=== PATIENT | male | born 1945 | race Caucasian/White ===

== ENCOUNTER 2017-12-27 10:11 | Emergency (ER) | payer OTHER, MEDICARE ==
[~2017-12-27] VITALS: Ht 170.2 cm; Wt 110.2 kg
[~2017-12-27 10:11] MED LIST: PERCOCET 5-3251 EACH PO; ZOFRAN4 M2 SL
--- NOTE | 2017-12-27 11:17 | ED GI/GU/ABDOMINAL COMPLAINT ---
See Addendum History of Present Illness General Chief Complaint: Nausea, Vomiting, Diarrhea Stated Complaint: NVD X 4 DAYS Source: patient, family Exam Limitations: no limitations Vital Signs & Intake/Output Vital Signs & Intake/Output Vital Signs Date Time Temp Pulse Resp B/P B/P Pulse O2 O2 Flow FiO2 Mean Ox Delivery Rate 12/27 1555 97.8 93 18 127/76 99 Room Air 12/27 1329 92 16 104/60 96 Room Air ED Intake and Output 12/28 0000 12/27 1200 Intake Total 1000 Output Total Balance 1000 Intake, IV 1000 Patient 243 lb Weight Weight Reported by Patient Measurement Method Allergies Coded Allergies: NO KNOWN ALLERGIES (01/04/16) Reconcile Medications Alprazolam 0.5 MG TABLET 1 TAB PO BIDP PRN ANXIETY (Reported) Aspirin (Aspirin*) 81 MG TAB.CHEW 1 TAB PO DAILY HEART HEALTH (Reported) Calcium Polycarbophil (Fiber Tabs) 625 MG TABLET 1 TAB PO DAILY SUPPLEMENT ( Reported) Cholecalciferol (Vitamin D3) (Vitamin D) 1,000 UNIT TABLET 1 TAB PO DAILY VITAMIN SUPPORT (Reported) Exenatide Microspheres (Bydureon Bcise) 2 MG/0.85 ML AUTO.INJCT 2 MG SC QW UNKNOWN (Reported) Glimepiride 2 MG TABLET 1 TAB PO DAILY DIABETES (Reported) Losartan Potassium 50 MG TABLET 1 TAB PO DAILY HEART (Reported) Metformin HCl (Metformin HCl ER) 500 MG [id number] 1 TAB PO DAILY DIABETES ( Reported) Metoprolol Tartrate 100 MG TABLET 1 TAB PO BID HEART (Reported) Multivit-Min/FA/Lycopen/Lutein (Centrum Silver Tablet) 0.4 MG-300 MCG-250 MCG TABLET 1 TAB PO DAILY VITAMIN SUPPORT (Reported) [place]-3S/Dha/Epa/Fish Oil (Fish Oil 1,200 MG Softgel) 360-1,200MG CAPSULE 1 CAP PO DAILY SUPPLEMENT (Reported) Omeprazole 20 MG CAPSULE.DR 1 CAP PO DAILY GI (Reported) Phentermine/Topiramate (Qsymia 11.25 MG-69 MG Capsule) 11.25 MG-69 MG CPMP.24HR 1 CAP PO DAILY UNKNOWN (Reported) Pioglitazone HCl 30 MG TABLET 1 TAB PO DAILY DIABETES (Reported) Simvastatin (Simvastatin*) 40 MG TABLET 1 TAB PO QPM CHOLESTEROL (Reported) Triage Note: PT STATES ABDOMINAL PAIN WITH N/V/D SINCE MONDAY. DENIES ANY SICK CONTACTS. STATES VOMITING HAS SETTLED DOWN BUT NOW JUST DIARRHEA. DENIES BLOOD IN STOOL Triage Nurses Notes Reviewed? yes Onset: Gradual Duration: day(s): (4) Timing: remote history Quality/Severity: cramping Severity Numbers: 7 Location: generalized abdomen Radiation: no radiation Activities at Onset: none Prior Abdominal Problems: similar symptoms Past Sexual History: Unobtainable at this time No Modifying Factors: none HPI: Patient is a 72-year-old male with history of hypertension, hyperlipidemia and diabetes presenting to the emergency department with family with chief complaint of nausea vomiting and diarrhea 4 days. Patient also reports that he had abdominal pain associated with this which had resolved. Patient reports 3-4 episodes of diarrhea daily. Reports his last episode of emesis was yesterday evening. No blood in the vomit or in the diarrhea. Denies any urinary frequency urgency or dysuria. No fevers or chills. No sick contacts or recent travel. Denies recent antibiotic use. Patient does report remote history of diverticulitis for which she had a colon resection. He saw one of his doctors today for a checkup and they advised him to come to the emergency department for evaluation secondary to the symptoms he has been having for the past 4 days. Patient denying any current abdominal pain. No chest pain palpitations or shortness of breath. He does report generalized malaise and diffuse weakness. Also reports decreased by mouth intake. Unable to keep anything down except for some water and amna dacia for the past 3-4 days. (Monserrat John) Past History Travel History Traveled to [place] past 21 day No Medical History Any Pertinent Medical History? see below for history Neurological: NONE EENT: NONE Cardiovascular: hypertension, hyperlipidemia Respiratory: asthma Gastrointestinal: diverticulitis Hepatic: NONE Renal: NONE Musculoskeletal: NONE Psychiatric: NONE Endocrine: NONE Blood Disorders: NONE Cancer(s): NONE Surgical History Surgical History: COLON RESECTION Psychosocial History Who do you live with Spouse Services at Home None What is your primary language Maori Tobacco Use: Never used ETOH Use: occasional use Illicit Drug Use: denies illicit drug use Family History Hx Contributory? No (Monserrat John) Review of Systems Review of Systems Constitutional: Reports: see HPI, malaise, weakness. Comments Review of systems: See HPI, All other systems negative. Constitutional, no chills fever or weight loss HEENT: No visual changes no sore throat no congestion Cardiovascular: No chest pain ,palpitation , orthopnea or ankle swelling Skin, no jaundice no rashes Respiratory: No dyspnea cough sputum or hemoptysis GI: Positive nausea, vomiting, diarrhea : No dysuria No hematuria Muscle skeletal: no back pain, no neck pain, Neurologic: No numbness no confusion, no headaches Psych: No stress anxiety or depression,. Heme/endocrine: No bruising no bleeding no polyuria or polydipsia Immunology: No splenectomy or history of AIDS (Monserrat John) Physical Exam Physical Exam General Appearance: no apparent distress, alert, awake, comfortable, obese Gastrointestinal: normal bowel sounds, soft, non-tender, obese Comments: Well-developed well-nourished person in no acute distress HEENT:. Pupils equally round and reactive to light and accommodation. Nose is atraumatic. Pharynx normal. No swelling or edema. Slightly dry oral mucosa. Dry lips noted. Neck: Normal inspection Back: Nontender Cardiovascular: Regular rate and rhythms no murmurs rubs or gallops, normal JVP Respiratory: Chest nontender. No respiratory distress.breath sounds clear to auscultation bilaterally Abdomen: Soft, obese, nontender, no rebound or guarding nondistended, no appreciable organomegaly. Hypoactive bowel sounds throughout abdomen. No ascites Extremity: No edema Neuro: Alert oriented x3 Skin: No appreciable rash on exposed skin, skin is warm and dry. Psych: Mood and affect is normal, memory and judgment is normal. Core Measures ACS in differential dx? No Sepsis Present: No Sepsis Focused Exam Completed? No (Monserrat John) Progress Differential Diagnosis: gastritis, diverticulitis, gastroenteritis, dehydration, acute kidney injury, electrolyte abnormality, UTI, peptic ulcer disease Plan of Care: Laboratory Tests 12/27/17 1407: Lactic Acid Cancelled Microbiology 12/27 1420 NASOPHARYN: Influenza Virus A & B Rapid Smear - COMP 12/27/2017 11:25:23 AM patient is awake alert and oriented, well-appearing. No abdominal pain on exam. Patient is hypotensive on arrival, afebrile. Patient does show signs on exam of dehydration. Likely related to recent nausea vomiting or diarrhea. Patient will be hydrated. Lab work ordered. Patient sent in for CAT scan of abdomen so patient will go for CT of abdomen as well. IV fluids along with Pepcid initiated no abdominal pain at this time. 12/27/2017 2:21:20 PM patient received 2 L IV fluids. Blood pressure seems to be responding. Patient still afebrile. No signs of diverticulitis or infectious cause of symptoms on CT scan. There is of no questionable ileus. No mechanical blockages. Patient was able to move his fall today. Patient has had no pain in his abdomen. Patient no longer vomiting. Spoke with Gregory Gutiérrez MD, covering surgeon, recommending we treat patient for gastroenteritis with symptomatic treatment. Patient will be educated to return if he develops any abdominal pain worsening symptoms or concerns. Educated on increasing fluid intake. Diagnostic Imaging: Viewed by Me: CT Scan. Discussed w/RAD: CT Scan. Radiology Impression: PATIENT: HARIS MORALES PRESENT AGE: 72 PATIENT ACCOUNT NO: [id number] : 47 LOCATION: [facility] ORDERING PHYSICIAN: Monserrat LAMBERT SERVICE DATE: 12/27/17 EXAM TYPE: CAT - CT ABD & PELVIS W IV CONTRAST EXAMINATION: CT ABDOMEN AND PELVIS WITH CONTRAST CLINICAL INFORMATION: Nausea, vomiting, diarrhea COMPARISON: CT abdomen and pelvis dated 01/04/2016 TECHNIQUE: Multidetector volumetric imaging was performed of the abdomen and pelvis following IV administration of 95 mL of Optiray 320 intravenous contrast. Sagittal and coronal reformatted images were obtained on the technologist's workstation. DLP: 1479 mGy-cm FINDINGS: LUNG BASES: The visualized lung bases are unremarkable. LIVER, GALLBLADDER, AND BILIARY TREE: There is a 2 cm lesion in the anterior aspect of the left hepatic lobe which demonstrates peripheral enhancement. Relative low-density of the liver is again seen suggestive of steatosis. The hepatic contour is smooth. A few calcified granulomata are seen. The gallbladder is surgically absent. There is unchanged high density in the remnant cystic duct unchanged compared to prior. The common bile duct is normal in caliber without evidence of stone. PANCREAS: Unremarkable. SPLEEN: Unremarkable. ADRENAL GLANDS: Unremarkable. KIDNEYS AND URETERS: There is symmetric renal enhancement. Mild diffuse cortical thinning is appreciated. There are small low-density lesions in the right kidney which are too small to characterize. There is a small nonobstructive calculus in the upper pole of the left kidney. There is no hydronephrosis or hydroureter. There is mild bilateral nonspecific perinephric stranding. BLADDER: Unremarkable. GASTROINTESTINAL TRACT: There is fluid in the small and large bowel. There are a few segments of distended small bowel without a discrete transition. There is a surgical anastomosis at the rectosigmoid junction which is widely patent. There are scattered diverticula in the distal colon without associated inflammatory change. Surgical clips are noted at the left hemiabdomen. The appendix is normal. There is no free fluid or pneumoperitoneum. ABDOMINAL WALL: There is a wide necked fat-containing midline epigastric hernia which is unchanged compared to prior. There is old healed midline surgical incision. There is nonspecific subcutaneous stranding in the anterior abdominal wall. LYMPH NODES: There are no pathologically enlarged lymph nodes by size criteria. VASCULAR: There is extensive aortoiliac atherosclerosis. No abdominal aortic aneurysm. The SMA, SMV, and portal vein enhance normally. PELVIC VISCERA: There are nonspecific prostatic calcifications. OSSEOUS STRUCTURES: There are partially imaged changes of median sternotomy. There are mild multilevel degenerative changes of the spine. Mild degenerative changes of the hips. IMPRESSION: Fluid-filled small and large bowel. Mildly distended small bowel without discrete transition. Overall, findings favor an ileus pattern. No evidence of mechanical small bowel obstruction. Rectosigmoid surgical anastomosis is widely patent. Postsurgical changes of cholecystectomy. Again seen are small retained stones within the cystic duct. The common bile duct is without stones and normal in caliber. 2 cm peripherally enhancing lesion in the left hepatic lobe is present on the prior CT from 01/04/2016 but did not demonstrate similar enhancement pattern likely due to differences in contrast bolus timing. It is similar in size. On the coronal view it appears to demonstrate peripheral nodular enhancement pattern characteristic of a hemangioma. Nonobstructive left upper pole renal calculus. DICTATED BY: Alondra De Guzman MD DATE/TIME DICTATED:12/27/171308 TRAILER ASSEMBLER:SHAWN DATE/ TIME TRANSCRIBED:12/27/171308 CONFIDENTIAL, DO NOT COPY WITHOUT APPROPRIATE AUTHORIZATION. <Electronically signed in Other Vendor System> SIGNED BY: Alondra De Guzman MD 12/27/17 1349 Initial ED EKG: none (Adelita LAMBERT,Monserrat) Departure Departure Time of Disposition: 1421 Disposition: HOME OR SELF CARE Condition: Stable Clinical Impression Primary Impression: Gastroenteritis Referrals: Juan ALAS,Walter Warren (PCP/Family) Marla ALAS,Gregory Hatch Additional Instructions: Follow-up with your primary care physician tomorrow, call to make an appointment. Return to the emergency Department immediately. Develop any abdominal pain if you continue to vomit worsening symptoms or concerns. Increase fluids. Attached as a copy of your CAT scan results. PATIENT: HARIS MORALES PRESENT AGE: 72 PATIENT ACCOUNT NO: [id number] : 47 LOCATION: [facility] ORDERING PHYSICIAN: Monserrat LAMBERT SERVICE DATE: 12/27/17 EXAM TYPE: CAT - CT ABD & PELVIS W IV CONTRAST EXAMINATION: CT ABDOMEN AND PELVIS WITH CONTRAST CLINICAL INFORMATION: Nausea, vomiting, diarrhea COMPARISON: CT abdomen and pelvis dated 01/04/2016 TECHNIQUE: Multidetector volumetric imaging was performed of the abdomen and pelvis following IV administration of 95 mL of Optiray 320 intravenous contrast. Sagittal and coronal reformatted images were obtained on the technologist's workstation. DLP: 1479 mGy-cm FINDINGS: LUNG BASES: The visualized lung bases are unremarkable. LIVER, GALLBLADDER, AND BILIARY TREE: There is a 2 cm lesion in the anterior aspect of the left hepatic lobe which demonstrates peripheral enhancement. Relative low-density of the liver is again seen suggestive of steatosis. The hepatic contour is smooth. A few calcified granulomata are seen. The gallbladder is surgically absent. There is unchanged high density in the remnant cystic duct unchanged compared to prior. The common bile duct is normal in caliber without evidence of stone. PANCREAS: Unremarkable. SPLEEN: Unremarkable. ADRENAL GLANDS: Unremarkable. KIDNEYS AND URETERS: There is symmetric renal enhancement. Mild diffuse cortical thinning is appreciated. There are small low-density lesions in the right kidney which are too small to characterize. There is a small nonobstructive calculus in the upper pole of the left kidney. There is no hydronephrosis or hydroureter. There is mild bilateral nonspecific perinephric stranding. BLADDER: Unremarkable. GASTROINTESTINAL TRACT: There is fluid in the small and large bowel. There are a few segments of distended small bowel without a discrete transition. There is a surgical anastomosis at the rectosigmoid junction which is widely patent. There are scattered diverticula in the distal colon without associated inflammatory change. Surgical clips are noted at the left hemiabdomen. The appendix is normal. There is no free fluid or pneumoperitoneum. ABDOMINAL WALL: There is a wide necked fat-containing midline epigastric hernia which is unchanged compared to prior. There is old healed midline surgical incision. There is nonspecific subcutaneous stranding in the anterior abdominal wall. LYMPH NODES: There are no pathologically enlarged lymph nodes by size criteria. VASCULAR: There is extensive aortoiliac atherosclerosis. No abdominal aortic aneurysm. The SMA, SMV, and portal vein enhance normally. PELVIC VISCERA: There are nonspecific prostatic calcifications. OSSEOUS STRUCTURES: There are partially imaged changes of median sternotomy. There are mild multilevel degenerative changes of the spine. Mild degenerative changes of the hips. IMPRESSION: Fluid-filled small and large bowel. Mildly distended small bowel without discrete transition. Overall, findings favor an ileus pattern. No evidence of mechanical small bowel obstruction. Rectosigmoid surgical anastomosis is widely patent. Postsurgical changes of cholecystectomy. Again seen are small retained stones within the cystic duct. The common bile duct is without stones and normal in caliber. 2 cm peripherally enhancing lesion in the left hepatic lobe is present on the prior CT from 01/04/2016 but did not demonstrate similar enhancement pattern likely due to differences in contrast bolus timing. It is similar in size. On the coronal view it appears to demonstrate peripheral nodular enhancement pattern characteristic of a hemangioma. Nonobstructive left upper pole renal calculus. DICTATED BY: Alondra De Guzman MD DATE/TIME DICTATED:12/27/171308 TRAILER ASSEMBLER:SHAWN DATE/TIME TRANSCRIBED:12/27/171308 CONFIDENTIAL, DO NOT COPY WITHOUT APPROPRIATE AUTHORIZATION. <Electronically signed in Other Vendor System> SIGNED BY: Alondra De Guzman MD 12/27/17 3166 Departure Forms: Customer Survey General Discharge Information (Monserrat John) Departure Comments The patient was not seen by me. The patient was evaluated by Dr. De Oliveira. I agree with the PAs evaluation however. (Bk Dyer DO) PA/MANAGER TRANSPORT Co-Sign Statement Statement: ED Attending supervision documentation- [X] I saw and evaluated the patient. I have also reviewed all the pertinent lab results and diagnostic results. I agree with the findings and the plan of care as documented in the PA's/MANAGER TRANSPORT's documentation. Patient presents for evaluation of vomiting and diarrhea. Physical examination reveals a benign abdomen. [] I have reviewed the ED Record and agree with the PA's/MANAGER TRANSPORT's documentation. [] Additions or exceptions (if any) to the PAs/MANAGER TRANSPORT's note and plan are summarized below: [] (Yennifer ALAS,Bk Cabrera) Departure Comments The patient was not seen by me. The patient was evaluated by Dr. De Oliveira. I agree with the PAs evaluation however. (Bk Dyer DO)
[2017-12-27] MEDS ORDERED: METOPROLOL TAR100 M1 PO (11:19)
[2017-12-27] MEDS ORDERED: LOSARTAN POTASS50 M1 PO (11:19)
[2017-12-27] MEDS ORDERED: SIMVASTATIN40 M1 PO (11:20)
[2017-12-27] MEDS ORDERED: PIOGLITAZONE HC30 M1 PO (11:20)
[2017-12-27] MEDS ORDERED: QSYMIA 11.25 M1 EACH PO (11:20)
[2017-12-27] MEDS ORDERED: GLIMEPIRIDE2 MG PO (11:21)
[2017-12-27] MEDS ORDERED: METFORMIN HCL500 M5 PO (11:21)
[2017-12-27] MEDS ORDERED: OMEPRAZOLE20 M2 PO (11:21)
[2017-12-27] MEDS ORDERED: CENTRUM SILVER1 EAC3 PO (11:22)
[2017-12-27] MEDS ORDERED: BYDUREON B2 MG/0.85 SC (11:22)
[2017-12-27] MEDS ORDERED: ASPIRIN81 M4 PO (11:22)
[2017-12-27] MEDS ORDERED: VITAMIN D1000 UNIT PO (11:23)
[2017-12-27] MEDS ORDERED: FIBER TABS625 MG PO (11:23)
[2017-12-27] MEDS ORDERED: FISH OIL 1,2001 EAC2 PO (11:24)
[2017-12-27] MEDS ORDERED: ALPRAZOLAM0.5 M4 PO (11:24)
[2017-12-27 12:00] LABS: ABSOLUTE BASOPHIL COUNT 0 /CUMM (0.0-0.2); ABSOLUTE EOSINOPHIL COUNT 0 /CUMM (0.0-0.7); ABSOLUTE GRANULOCYTE CT 6.3 /CUMM (1.4-6.5); ABSOLUTE LYMPH COUNT 1.9 /CUMM (1.2-3.4); ABSOLUTE MONOCYTE COUNT 1.1 /CUMM (0.10-0.60); BASOPHIL % 0.4 % (0.0-2.0); EOSINOPHIL % 0.3 % (0-5); GRANULOCYTE % 66.9 % (42.2-75.2); MEAN CORPUSCULAR HGB 28.6 PG (27.0-31.0); MEAN CORPUSCULAR HGB CONC 32.8 G/DL (33.0-37.0); MEAN CORPUSCULAR VOLUME 87.2 FL (80.0-94.0); MEAN PLATELET VOLUME 7.7 FL (7.4-10.4); PLATELET COUNT 232 /CUMM (130-400); RBC DISTRIBUTION WIDTH 14.5 % (11.5-14.5); RED BLOOD CELL CT 5.16 /CUMM (4.70-6.10); WHITE BLOOD CELL COUNT 9.4 /CUMM (4.8-10.8)
--- NOTE | 2017-12-27 13:49 | CT SCAN REPORT ---
EXAMINATION: CT ABDOMEN AND PELVIS WITH CONTRAST CLINICAL INFORMATION: Nausea, vomiting, diarrhea COMPARISON: CT abdomen and pelvis dated 01/04/2016 TECHNIQUE: Multidetector volumetric imaging was performed of the abdomen and pelvis following IV administration of 95 mL of Optiray 320 intravenous contrast. Sagittal and coronal reformatted images were obtained on the technologist's workstation. DLP: 1479 mGy-cm FINDINGS: LUNG BASES: The visualized lung bases are unremarkable. LIVER, GALLBLADDER, AND BILIARY TREE: There is a 2 cm lesion in the anterior aspect of the left hepatic lobe which demonstrates peripheral enhancement. Relative low-density of the liver is again seen suggestive of steatosis. The hepatic contour is smooth. A few calcified granulomata are seen. The gallbladder is surgically absent. There is unchanged high density in the remnant cystic duct unchanged compared to prior. The common bile duct is normal in caliber without evidence of stone. PANCREAS: Unremarkable. SPLEEN: Unremarkable. ADRENAL GLANDS: Unremarkable. KIDNEYS AND URETERS: There is symmetric renal enhancement. Mild diffuse cortical thinning is appreciated. There are small low-density lesions in the right kidney which are too small to characterize. There is a small nonobstructive calculus in the upper pole of the left kidney. There is no hydronephrosis or hydroureter. There is mild bilateral nonspecific perinephric stranding. BLADDER: Unremarkable. GASTROINTESTINAL TRACT: There is fluid in the small and large bowel. There are a few segments of distended small bowel without a discrete transition. There is a surgical anastomosis at the rectosigmoid junction which is widely patent. There are scattered diverticula in the distal colon without associated inflammatory change. Surgical clips are noted at the left hemiabdomen. The appendix is normal. There is no free fluid or pneumoperitoneum. ABDOMINAL WALL: There is a wide necked fat-containing midline epigastric hernia which is unchanged compared to prior. There is old healed midline surgical incision. There is nonspecific subcutaneous stranding in the anterior abdominal wall. LYMPH NODES: There are no pathologically enlarged lymph nodes by size criteria. VASCULAR: There is extensive aortoiliac atherosclerosis. No abdominal aortic aneurysm. The SMA, SMV, and portal vein enhance normally. PELVIC VISCERA: There are nonspecific prostatic calcifications. OSSEOUS STRUCTURES: There are partially imaged changes of median sternotomy. There are mild multilevel degenerative changes of the spine. Mild degenerative changes of the hips. IMPRESSION: Fluid-filled small and large bowel. Mildly distended small bowel without discrete transition. Overall, findings favor an ileus pattern. No evidence of mechanical small bowel obstruction. Rectosigmoid surgical anastomosis is widely patent. Postsurgical changes of cholecystectomy. Again seen are small retained stones within the cystic duct. The common bile duct is without stones and normal in caliber. 2 cm peripherally enhancing lesion in the left hepatic lobe is present on the prior CT from 01/04/2016 but did not demonstrate similar enhancement pattern likely due to differences in contrast bolus timing. It is similar in size. On the coronal view it appears to demonstrate peripheral nodular enhancement pattern characteristic of a hemangioma. Nonobstructive left upper pole renal calculus.
[2017-12-27 15:55] VITALS: BP 127/76
== END 2017-12-27 15:56 ==
LOC: ERH 10:11
PROVIDERS: Physician Assistant
DX: K52.9 Noninfective gastroenteritis and colitis, unspecified (principal)
CPT/HCPCS: 74177; 81001; 87045; 87804; 87804-59; 93005; 93010; 96374

== ENCOUNTER 2018-03-31 10:54 | Emergency (ER) | payer OTHER, MEDICARE ==
[~2018-03-31] VITALS: Ht 170.2 cm; Wt 116.6 kg
[~2018-03-31 10:54] MED LIST changes: +ALPRAZOLAM0.5 M4 PO; +ASPIRIN81 M4 PO; +BYDUREON B2 MG/0.85 SC; +CENTRUM SILVER1 EAC3 PO; +FIBER TABS625 MG PO; +FISH OIL 1,2001 EAC2 PO; +GLIMEPIRIDE2 MG PO; +LOSARTAN POTASS50 M1 PO; +METFORMIN HCL500 M5 PO; +METOPROLOL TAR100 M1 PO; +OMEPRAZOLE20 M2 PO; +PIOGLITAZONE HC30 M1 PO; +QSYMIA 11.25 M1 EACH PO; +SIMVASTATIN40 M1 PO; +VITAMIN D1000 UNIT PO
--- NOTE | 2018-03-31 11:32 | ED GI/GU/ABDOMINAL COMPLAINT ---
History of Present Illness General Chief Complaint: Abdominal Pain/Flank Pain Stated Complaint: ABD PAIN Source: patient Exam Limitations: no limitations Vital Signs & Intake/Output Vital Signs & Intake/Output Vital Signs Date Time Temp Pulse Resp B/P B/P Pulse O2 O2 Flow FiO2 Mean Ox Delivery Rate 03/31 1322 98.3 76 18 151/72 96 Room Air 03/31 1319 Room Air 03/31 1059 98.4 83 18 154/84 98 Room Air Allergies Coded Allergies: NO KNOWN ALLERGIES (01/04/16) Reconcile Medications Alprazolam 0.5 MG TABLET 1 TAB PO BIDP PRN ANXIETY (Reported) Aspirin (Aspirin*) 81 MG TAB.CHEW 1 TAB PO DAILY HEART HEALTH (Reported) Calcium Polycarbophil (Fiber Tabs) 625 MG TABLET 1 TAB PO DAILY SUPPLEMENT ( Reported) Cholecalciferol (Vitamin D3) (Vitamin D) 1,000 UNIT TABLET 1 TAB PO DAILY VITAMIN SUPPORT (Reported) Exenatide Microspheres (Bydureon Bcise) 2 MG/0.85 ML AUTO.INJCT 2 MG SC QSUN DM (Reported) Glimepiride 2 MG TABLET 1 TAB PO DAILY DIABETES (Reported) Losartan Potassium 50 MG TABLET 1 TAB PO DAILY HEART (Reported) Metformin HCl (Metformin HCl ER) 500 MG [id number] 1 TAB PO DAILY DIABETES ( Reported) Metoprolol Tartrate 100 MG TABLET 1 TAB PO BID HEART (Reported) Multivit-Min/FA/Lycopen/Lutein (Centrum Silver Tablet) 0.4 MG-300 MCG-250 MCG TABLET 1 TAB PO DAILY VITAMIN SUPPORT (Reported) Butler-3S/Dha/Epa/Fish Oil (Fish Oil 1,200 MG Softgel) 360-1,200MG CAPSULE 1 CAP PO DAILY SUPPLEMENT (Reported) Omeprazole 20 MG CAPSULE.DR 1 CAP PO DAILY GI (Reported) Phentermine/Topiramate (Qsymia 11.25 MG-69 MG Capsule) 11.25 MG-69 MG CPMP.24HR 1 CAP PO DAILY WEIGHT LOSS (Reported) Pioglitazone HCl 30 MG TABLET 1 TAB PO DAILY DIABETES (Reported) Simvastatin (Simvastatin*) 40 MG TABLET 1 TAB PO QPM CHOLESTEROL (Reported) Triage Note: 72 YO MALE TO TRIAGE FOR EVAL OF LLQ PAIN WITH HEMATURIA ON MONDAY AND MONDAY. +CONSTIPATION, LAST BM WAS MONDAY. STATES HX OF DIVERTICULITIS, STATES HAD PART OF HIS LARGE INTESTINES REMOVED IN THE . DENIES N/V. STATES HASNT HAD AN APPETITE. Triage Nurses Notes Reviewed? yes Onset: Gradual Duration: day(s):, constant, changing over time, continues in ED, getting worse Quality/Severity: sharpness, severe Location: left lower quadrant Radiation: no radiation Activities at Onset: rest Prior Abdominal Problems: similar symptoms (DUE TO DIVERTICULITIS) HPI: Patient presents for evaluation of a constant severe left-sided abdominal pain that began Monday. Symptoms became worse prompting him to seek evaluation at a walk-in center. Walk-in center checked a urinalysis (normal) and referred him to an emergency department. Patient denies any associated nausea, vomiting, diarrhea or dysuria. He states he did have "blood in his urine" on Monday and without associated fever or cold symptoms. No care was sought at that time. Past History Travel History Traveled to [place] past 21 day No Medical History Any Pertinent Medical History? see below for history Neurological: NONE EENT: NONE Cardiovascular: hypertension, hyperlipidemia Respiratory: asthma Gastrointestinal: diverticulitis, PART OF COLON REMOVED Hepatic: NONE Renal: NONE Musculoskeletal: NONE Psychiatric: NONE Endocrine: NONE Blood Disorders: NONE Cancer(s): NONE Surgical History Surgical History: COLON RESECTION Psychosocial History Who do you live with Spouse Services at Home None What is your primary language Chadian Tobacco Use: Never used Family History Hx Contributory? No Review of Systems Review of Systems Constitutional: Reports: no symptoms. EENTM: Reports: no symptoms. Respiratory: Reports: no symptoms. Cardiovascular: Reports: no symptoms. GI: Reports: see HPI. Genitourinary: Reports: no symptoms. Musculoskeletal: Reports: no symptoms. Skin: Reports: no symptoms. Neurological/Psychological: Reports: no symptoms. Hematologic/Endocrine: Reports: no symptoms. Immunologic/Allergic: Reports: no symptoms. All Other Systems: Reviewed and Negative Physical Exam Physical Exam Gastrointestinal: SEE BELOW Comments: Gen.: Well-nourished, well-developed, no acute respiratory distress. Head: Normocephalic, atraumatic. Eyes: Normal inspection bilaterally Ears: Normal inspection bilaterally Nose: Normal inspection Throat/mouth : Moist mucosa Neck: Supple, full range of motion, no goiter Heart: Regular rate and rhythm, no murmurs rubs or gallops Lungs: Clear to auscultation bilaterally with normal air entry Chest: Nontender Back: Normal range of motion Abdomen: Soft, tenderness over the left lower quadrant and suprapubic region without rebound or guarding, nondistended, normal bowel sounds Extremities: Normal range of motion grossly, equal radial pulses, no cyanosis clubbing or edema Neurologic: Cranial nerves grossly intact, speech is clear Skin: warm and dry Psychiatric: Calm, cooperative, no apparent delusions or hallucinations Core Measures ACS in differential dx? No Sepsis Present: No Sepsis Focused Exam Completed? No Progress Differential Diagnosis: DIVERTICULITIS, RENAL COLIC, MUSCLE STRAIN, URINARY TRACT INFECTION Plan of Care: Orders Procedure Date/time Status URINALYSIS 03/31 113 Complete LIPASE 03/31 113 Complete COMPREHENSIVE METABOLIC PANEL 03/31 113 Complete CBC WITHOUT DIFFERENTIAL 03/31 113 Complete Laboratory Tests 03/31/18 1228: Anion Gap 13, Estimated GFR 37 L, BUN/Creatinine Ratio 15.0, Glucose 174 H, Calcium 10.1, Total Bilirubin 0.8, AST 22, ALT 24, Alkaline Phosphatase 80, Total Protein 7.2, Albumin 3.8, Globulin 3.4, Albumin/Globulin Ratio 1.1, Lipase 63 03/31/18 1216: Urinalysis MOD H, Urine Color YEL, Urine Clarity HAZY H, Urine pH 6.5, Ur Specific [place] 1.020, Urine Protein NEG, Urine Ketones NEG, Urine Nitrite NEG, Urine Bilirubin NEG, Urine Urobilinogen 0.2, Ur Leukocyte Esterase NEG, Ur Microscopic SEDIMENT EXAMINED, Urine RBC 3-5, Urine WBC 3-5 H, Ur Epithelial Cells RARE, Urine Bacteria MOD H, Hyaline Casts RARE H, Urine Mucus FEW, Urine Hemoglobin TRACE-INTACT H, Urine Glucose NEG 03/31/18 1156: CBC w Diff MAN DIFF ORDERED, RBC 4.86, MCV 87.7, MCH 29.5, MCHC 33.6, RDW 14.2, MPV 9.4, Gran % 84.9 H, Lymphocytes % 7.7 L, Monocytes % 6.9, Eosinophils % 0.1, Basophils % 0.4, Absolute Granulocytes 10.4 H, Absolute Lymphocytes 0.9 L , Absolute Monocytes 0.9 H, Absolute Eosinophils 0, Absolute Basophils 0.1, Platelet Estimate VERIFIED BY SMEAR, Normocytic RBCs VERIFIED, Normochromic RBCs VERIFIED Diagnostic Imaging: Discussed w/RAD: CT Scan. Radiology Impression: PATIENT: HARIS MORALES PRESENT AGE: 72 PATIENT ACCOUNT NO: [id number] : 47 LOCATION: [facility] ORDERING PHYSICIAN: Bk De Oliveira MD SERVICE DATE: 03/31/18 EXAM TYPE: CAT - CT ABD & PELVIS W/O IV CONTRAS EXAMINATION: CT ABDOMEN AND PELVIS WITHOUT CONTRAST CLINICAL INFORMATION: Left lower quadrant pain; question diverticulitis. COMPARISON: CT abdomen and pelvis dated 12/27/2017. TECHNIQUE: Multidetector volumetric imaging was performed from the superior aspect of the liver through the pubic symphysis. Sagittal and coronal reformatted images were obtained on the technologist's workstation. DLP: 1602.45 mGy-cm FINDINGS: LUNG BASES: The visualized lung bases are unremarkable. There are coronary artery atherosclerotic calcifications. LIVER, GALLBLADDER, AND BILIARY TREE: The liver is normal in size, shape, and attenuation. There are benign, calcified hepatic granulomas. No focal hepatic lesion or biliary ductal dilatation is present. The previously noted anterior left hepatic lobe mass is not presently identified without the benefit of intravenous contrast. The gallbladder is surgically absent, and there is unchanged high attenuation material within the remnant cystic duct. PANCREAS: Unremarkable. SPLEEN: Unremarkable. ADRENAL GLANDS: Unremarkable. KIDNEYS AND URETERS: The kidneys are normal in size, shape, and attenuation. There is very mild left hydronephroureter secondary to a 6 mm distal left ureteric calculus (2:72). No right hydronephrosis, hydroureter or calculi seen. No perinephric stranding. BLADDER: Unremarkable. GASTROINTESTINAL TRACT: A sigmoid anastomotic staple line is seen. There is no bowel obstruction, free intraperitoneal air or abscess. No focal bowel wall thickening is seen. The vermiform appendix appears normal. ABDOMINAL WALL: No significant hernia is appreciated. LYMPH NODES: Normal. VASCULAR: There is moderate aortoiliac atherosclerotic change. No abdominal aortic aneurysm is seen. PELVIC VISCERA: The prostate and seminal vesicles are unremarkable. Coarse central prostate allegations are noted. OSSEOUS STRUCTURES: There is multi-level thoracolumbar degenerative disc disease and spondylosis, most pronounced at L3-L4. No acute or aggressive osseous abnormality is seen. IMPRESSION: 1. There is mild left hydronephroureter secondary to a 6 mm distal left ureteric calculus. 2. Sigmoid anastomotic staple line noted. No bowel obstruction, free intraperitoneal air or abscess is seen. There is no appendicitis or diverticulitis. 3. The gallbladder is surgically absent. Retained cystic duct stones unchanged. 4. Previously noted hepatic mass is not redemonstrated without the benefit of intravenous contrast. 5. There are thoracolumbar degenerative changes. DICTATED BY: Carter Sargent MD DATE/TIME DICTATED:03/31/181214 ANCILLARY SERVICES MANAGER THERAPY:SHAWN DATE/TIME TRANSCRIBED:03/31/181214 CONFIDENTIAL, DO NOT COPY WITHOUT APPROPRIATE AUTHORIZATION. <Electronically signed in Other Vendor System> SIGNED BY: Carter Sargent MD 03/31/18 1226 Initial ED EKG: none Comments: 03/31/2018 12:59:16 PM D/W DR FERNANDEZ, D/C TO HOME IF PAIN IS CONTROLLED. If pain is not well controlled BY 3 PM, THEN PATIENT WILL GO TO THE OR (PATIENT ATE A SMALL AMOUNT OF BREAKFAST AT ABOUT 8 TO 8:30 THIS MORNING PRECLUDING SURGICAL INTERVENTION AT THIS TIME). 03/31/2018 2:42:00 PM other than a complaint of right back pain, HARIS'S renal colic pain appears well controlled. I feel he can be managed at least at this point as an outpatient. Patient's right-sided back pain is likely secondary to lying on the stretcher in the context of his chronic back pain. Departure Departure Disposition: HOME OR SELF CARE Condition: Stable Clinical Impression Primary Impression: Renal colic on left side Referrals: Juan ALAS,Walter Warren (PCP/Family) Additional Instructions: Ultracet as needed for pain. Follow-up with Dr. Fernandez (urologist) on Monday for repeat evaluation and definitive treatment. Notify your primary care doctor of this emergency department visit and treatment plan. Return if any concerns or sudden worsening. Please note that there might be incidental findings in your evaluation that are unrelated to the current emergency department visit. Please notify your primary care doctor about this emergency department visit in order to obtain and review all of the testing performed so that these incidental findings can be monitored as needed. If you had an x-ray performed, please understand that some fractures or other findings may not be seen on the initial set of x-rays. If your symptoms persist you might need a repeat set of x-rays to check for such a fracture. If you had a laceration evaluated, please understand that foreign bodies such as glass or wood may not be visible to the naked eye or on plain x-rays. If the wound becomes red, swollen, increasingly more painful or if there is any drainage from the wound, please have it reevaluated by a physician for the possibility of a retained foreign body. If you're unable to follow up as outlined in the discharge instructions please return to the emergency department. Thank you for choosing the [facility] for your care. It was a pleasure to serve you today. Bk De Oliveira M.D. [facility] Departure Forms: Customer Survey General Discharge Information Prescriptions: Current Visit Scripts Tramadol HCl/Acetaminophen (Ultracet Tablet) 1-2 TAB PO Q6P #30 TAB Polyethylene Glycol 3350 (Miralax) 17 GM PO DAILY PRN CONSTIPATION #255 GM mix with water, juice, soda, coffee or tea Critical Care Note Critical Care Note Critical Care Time: 30-74 min
[2018-03-31 12:22] LABS: ABSOLUTE BASOPHIL COUNT 0.1 /CUMM (0.0-0.2); ABSOLUTE EOSINOPHIL COUNT 0 /CUMM (0.0-0.7); ABSOLUTE GRANULOCYTE CT 10.4 /CUMM (1.4-6.5); ABSOLUTE LYMPH COUNT 0.9 /CUMM (1.2-3.4); ABSOLUTE MONOCYTE COUNT 0.9 /CUMM (0.10-0.60); BASOPHIL % 0.4 % (0.0-2.0); EOSINOPHIL % 0.1 % (0-5); GRANULOCYTE % 84.9 % (42.2-75.2); HEMATOCRIT 42.6 % (42-52); MEAN CORPUSCULAR HGB 29.5 PG (27.0-31.0); MEAN CORPUSCULAR HGB CONC 33.6 G/DL (33.0-37.0); MEAN CORPUSCULAR VOLUME 87.7 FL (80.0-94.0); MEAN PLATELET VOLUME 9.4 FL (7.4-10.4); PLATELET COUNT 189 /CUMM (130-400); RBC DISTRIBUTION WIDTH 14.2 % (11.5-14.5); RED BLOOD CELL CT 4.86 /CUMM (4.70-6.10); WHITE BLOOD CELL COUNT 12.3 /CUMM (4.8-10.8)
--- NOTE | 2018-03-31 12:26 | CT SCAN REPORT ---
EXAMINATION: CT ABDOMEN AND PELVIS WITHOUT CONTRAST CLINICAL INFORMATION: Left lower quadrant pain; question diverticulitis. COMPARISON: CT abdomen and pelvis dated 12/27/2017. TECHNIQUE: Multidetector volumetric imaging was performed from the superior aspect of the liver through the pubic symphysis. Sagittal and coronal reformatted images were obtained on the technologist's workstation. DLP: 1602.45 mGy-cm FINDINGS: LUNG BASES: The visualized lung bases are unremarkable. There are coronary artery atherosclerotic calcifications. LIVER, GALLBLADDER, AND BILIARY TREE: The liver is normal in size, shape, and attenuation. There are benign, calcified hepatic granulomas. No focal hepatic lesion or biliary ductal dilatation is present. The previously noted anterior left hepatic lobe mass is not presently identified without the benefit of intravenous contrast. The gallbladder is surgically absent, and there is unchanged high attenuation material within the remnant cystic duct. PANCREAS: Unremarkable. SPLEEN: Unremarkable. ADRENAL GLANDS: Unremarkable. KIDNEYS AND URETERS: The kidneys are normal in size, shape, and attenuation. There is very mild left hydronephroureter secondary to a 6 mm distal left ureteric calculus (2:72). No right hydronephrosis, hydroureter or calculi seen. No perinephric stranding. BLADDER: Unremarkable. GASTROINTESTINAL TRACT: A sigmoid anastomotic staple line is seen. There is no bowel obstruction, free intraperitoneal air or abscess. No focal bowel wall thickening is seen. The vermiform appendix appears normal. ABDOMINAL WALL: No significant hernia is appreciated. LYMPH NODES: Normal. VASCULAR: There is moderate aortoiliac atherosclerotic change. No abdominal aortic aneurysm is seen. PELVIC VISCERA: The prostate and seminal vesicles are unremarkable. Coarse central prostate allegations are noted. OSSEOUS STRUCTURES: There is multi-level thoracolumbar degenerative disc disease and spondylosis, most pronounced at L3-L4. No acute or aggressive osseous abnormality is seen. IMPRESSION: 1. There is mild left hydronephroureter secondary to a 6 mm distal left ureteric calculus. 2. Sigmoid anastomotic staple line noted. No bowel obstruction, free intraperitoneal air or abscess is seen. There is no appendicitis or diverticulitis. 3. The gallbladder is surgically absent. Retained cystic duct stones unchanged. 4. Previously noted hepatic mass is not redemonstrated without the benefit of intravenous contrast. 5. There are thoracolumbar degenerative changes.
[2018-03-31] MEDS ORDERED: ULTRACET TABLE1 EACH PO (15:00)
[2018-03-31] MEDS ORDERED: MIRALAX119 GM PO (15:00)
[2018-03-31 15:06] VITALS: BP 155/80
== END 2018-03-31 15:18 ==
LOC: ERH 10:54
PROVIDERS: Emergency Medicine
DX: N23 Unspecified renal colic (principal)
CPT/HCPCS: 74176; 81001; 96374; 96375; J0131; J1885; J7040

== ENCOUNTER 2018-04-01 03:01 | Inpatient (IN) | payer OTHER, MEDICARE ==
[~2018-04-01] VITALS: Ht 170.2 cm; Wt 118.0 kg
[~2018-04-01 03:01] MED LIST changes: +MIRALAX119 GM PO; +ULTRACET TABLE1 EACH PO
--- NOTE | 2018-04-01 03:11 | ED GENERAL ADULT ---
History of Present Illness General Chief Complaint: Abdominal Pain/Flank Pain Stated Complaint: DISCHARGED YESTERDAY, PAIN INCREASED +NV-D Source: patient Exam Limitations: no limitations Vital Signs & Intake/Output Vital Signs & Intake/Output Vital Signs Date Time Temp Pulse Resp B/P B/P Pulse O2 O2 Flow FiO2 Mean Ox Delivery Rate 04/01 0937 100 14 152/74 96 Room Air 04/01 0750 88 18 148/78 96 Room Air 04/01 0645 90 16 143/71 97 Room Air 04/01 0511 90 20 182/86 98 Room Air Room Air 04/01 0311 98.0 88 16 153/84 98 Room Air Room Air Allergies Coded Allergies: NO KNOWN ALLERGIES (01/04/16) Reconcile Medications Alprazolam 0.5 MG TABLET 1 TAB PO BIDP PRN ANXIETY (Reported) Aspirin (Aspirin*) 81 MG TAB.CHEW 1 TAB PO DAILY HEART HEALTH (Reported) Calcium Polycarbophil (Fiber Tabs) 625 MG TABLET 1 TAB PO DAILY SUPPLEMENT ( Reported) Cholecalciferol (Vitamin D3) (Vitamin D) 1,000 UNIT TABLET 1 TAB PO DAILY VITAMIN SUPPORT (Reported) Exenatide Microspheres (Bydureon Bcise) 2 MG/0.85 ML AUTO.INJCT 2 MG SC QSUN DM (Reported) Glimepiride 2 MG TABLET 1 TAB PO DAILY DIABETES (Reported) Losartan Potassium 50 MG TABLET 1 TAB PO DAILY HEART (Reported) Metformin HCl (Metformin HCl ER) 500 MG [id number] 1 TAB PO DAILY DIABETES ( Reported) Metoprolol Tartrate 100 MG TABLET 1 TAB PO BID HEART (Reported) Multivit-Min/FA/Lycopen/Lutein (Centrum Silver Tablet) 0.4 MG-300 MCG-250 MCG TABLET 1 TAB PO DAILY VITAMIN SUPPORT (Reported) Mclean-3S/Dha/Epa/Fish Oil (Fish Oil 1,200 MG Softgel) 360-1,200MG CAPSULE 1 CAP PO DAILY SUPPLEMENT (Reported) Omeprazole 20 MG CAPSULE.DR 1 CAP PO DAILY GI (Reported) Phentermine/Topiramate (Qsymia 11.25 MG-69 MG Capsule) 11.25 MG-69 MG CPMP.24HR 1 CAP PO DAILY WEIGHT LOSS (Reported) Pioglitazone HCl 30 MG TABLET 1 TAB PO DAILY DIABETES (Reported) Polyethylene Glycol 3350 (Miralax) 17 GRAM/DOSE POWDER 17 GM PO DAILY PRN CONSTIPATION mix with water, juice, soda, coffee or tea Simvastatin (Simvastatin*) 40 MG TABLET 1 TAB PO QPM CHOLESTEROL (Reported) Tramadol HCl/Acetaminophen (Ultracet Tablet) 37.5 MG-325 MG TABLET 1-2 TAB PO Q6P PAIN Triage Note: 72YO MALE TO TRIAGE W/CO ABD PAIN THAT RETURNED. STATES HE WAS SEEN HERE ON SAT AFTERNOON, DXED W/KIDNEY STONE AND PAIN MED IS NOT RELIEVING PAIN. ALSO STATES +VOMITING TONITE. Triage Nurses Notes Reviewed? yes Onset: Gradual Duration: hour(s):, day(s): Timing: multiple episodes today HPI: 72-year-old man with past medical history of nephrolithiasis seen for evaluation of abdominal/flank pain. Patient was seen in the [place] ED yesterday (03/31/18) for left lower quadrant pain with bloody urine and constipation after being referred by an urgent care center. He denied any nausea, vomiting, diarrhea, or dysuria at that time. Labs were significant for a WBC of 12.3 and a creatinine of 1.8 and essentially negative urinalysis. CT abdomen/pelvis demonstrated mild left hydronephrosis with a distal 6 mm stone. Case was discussed with Dr. Fernandez by the ED provider whom advised pain control and outpatient evaluation. Presently patient is complaining that his abdominal pain has returned and that the pain medications he was provided are not working. He has new nausea with vomiting. He otherwise denies any fever, chills, or urinary symptoms. (Bk Dyer DO) Past History Travel History Traveled to [place] past 21 day No Medical History Any Pertinent Medical History? see below for history Neurological: NONE EENT: NONE Cardiovascular: hypertension, hyperlipidemia Respiratory: asthma Gastrointestinal: diverticulitis, PART OF COLON REMOVED Hepatic: NONE Renal: KIDNEY STONES Musculoskeletal: NONE Psychiatric: NONE Endocrine: NONE Blood Disorders: NONE Cancer(s): NONE Surgical History Surgical History: COLON RESECTION Psychosocial History Who do you live with Spouse Services at Home None What is your primary language Guinean Tobacco Use: Refused to answer Family History Hx Contributory? No (Bk Dyer DO) Review of Systems Review of Systems Constitutional: Denies: chills, fever. EENTM: Reports: no symptoms. Respiratory: Reports: no symptoms. Cardiovascular: Reports: no symptoms. GI: Reports: abdominal pain. Genitourinary: Reports: no symptoms. Musculoskeletal: Reports: no symptoms. Skin: Reports: no symptoms. Neurological/Psychological: Reports: no symptoms. Hematologic/Endocrine: Reports: no symptoms. Immunologic/Allergic: Reports: no symptoms. (Bk Dyer DO) Physical Exam Physical Exam General Appearance: well developed/nourished, no apparent distress, awake, anxious Head: atraumatic, normal appearance Eyes: Bilateral: normal appearance, PERRL, EOMI. Ears, Nose, Throat: normal pharynx, normal ENT inspection Neck: normal inspection, supple, full range of motion Respiratory: normal breath sounds, no respiratory distress Cardiovascular: regular rate/rhythm Peripheral Pulses: 4+ radial (R), 4+ radial (L) Gastrointestinal: soft, non-tender Back: CVA tenderness (L) Extremities: normal inspection, normal range of motion, no edema Neurologic/Psych: no motor/sensory deficits, awake, alert, oriented x 3 Skin: intact, normal color, warm/dry Core Measures ACS in differential dx? No CVA/TIA Diagnosis: No Sepsis Present: No Sepsis Focused Exam Completed? No (Bk Dyer DO) Progress Differential Diagnoses I considered the following diagnoses in my evaluation of the patient: Nephrolithiasis, urinary tract infection, pyelonephritis Plan of Care: Orders Procedure Date/time Status Nothing by Mouth 04/01 D Active Misc Message 04/01 1113 Active ED Holding Orders 04/01 1113 Active Admit to inpatient 04/01 1113 Active Vital Signs 04/01 1113 Active Code Status 04/01 1113 Active TROPONIN LEVEL 04/01 0915 Complete EKG 04/01 0915 Active ECHOCARDIOGRAM 04/01 0838 Active OXYGEN SETUP (GEN) 04/01 0536 Active TROPONIN LEVEL 04/01 0513 Complete COMPREHENSIVE METABOLIC PANEL 04/01 0513 Complete CBC WITHOUT DIFFERENTIAL 04/01 0513 Complete EKG 04/01 0506 Active CULTURE,URINE 04/01 0359 Active URINALYSIS 04/01 0359 Complete Laboratory Tests 04/01/18 0926: Troponin I 0.38 *H 04/01/18 0900: Urinalysis LIGHT H, Urine Color YEL, Urine Clarity HAZY H, Urine pH 6.0, Ur Specific [place] 1.015, Urine Protein TRACE H, Urine Ketones NEG, Urine Nitrite NEG, Urine Bilirubin NEG, Urine Urobilinogen 0.2, Ur Leukocyte Esterase MOD H, Ur Microscopic SEDIMENT EXAMINED, Urine RBC 15-25 H, Urine WBC 15-25 H, Ur Epithelial Cells MOD H, Urine Bacteria FEW H, Urine Mucus FEW, Urine Hemoglobin LARGE H, Urine Glucose NEG 04/01/18 0609: Anion Gap 14, Estimated GFR 18 L, BUN/Creatinine Ratio 11.5, Glucose 156 H, Calcium 8.6, Total Bilirubin 0.6, AST 20, ALT 29, Alkaline Phosphatase 64, Troponin I 0.10, Total Protein 6.1 L, Albumin 3.1 L, Globulin 3.0, Albumin/ Globulin Ratio 1.0 L, CBC w Diff NO MAN DIFF REQ, RBC 4.56 L, MCV 89.0, MCH 29.2, MCHC 32.8 L, RDW 13.9, MPV 7.9, Gran % 82.8 H, Lymphocytes % 6.9 L, Monocytes % 9.0, Eosinophils % 0, Basophils % 1.3, Absolute Granulocytes 9.4 H, Absolute Lymphocytes 0.8 L, Absolute Monocytes 1.0 H, Absolute Eosinophils 0, Absolute Basophils 0.1 Microbiology 04/01 0359 URINE ROUT: Urine Culture - ORD Initial ED EKG: none, NSR, RBBB, NSST Prior EKG: changed Comments: The patient was signed out to Dr. De Oliveira. Review the EKG with cardiology, repeat troponin, consult with urology. (Bk Dyer DO) Repeat EKG: unchanged Comments: 04/01/2018 8:38:51 AM patient signed out to me by Dr. 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 I have discussed this patient's case with Dr. Cheek who will evaluate aashish in the emergency department later this morning. Echo ordered at Dr. Cheek's request. 04/01/2018 9:45:34 AM patient's case discussed with Dr. Fernandez, I have notified him of the patient's episode of chest pain and the current plan. 04/01/2018 10:56:20 AM although patient's repeat EKG was unchanged, his repeat troponin is now positive. He is being evaluated by Dr. Cheek. 04/01/2018 11:09:[address] Cheek recommends against patient's urologic procedure. Patient's troponins should be trended patient can be treated with aspirin at this time. Fortunately he is pain-free currently. 04/01/2018 11:14:13 AM I have updated Dr. Fernandez on Dr. Cheek's recommendations. Patient's case has been discussed with Dr. Salomon for admission. (Bk De Oliveira MD) Departure Departure Disposition: STILL A PATIENT Condition: Stable Clinical Impression Primary Impression: Abdominal pain Secondary Impressions: Chest pain, Renal colic Referrals: Walter Martinez MD (PCP/Family) Departure Forms: Customer Survey General Discharge Information Comments At 5:11 AM. The patient complained of retrosternal chest pain. A stat EKG was done. Blood work and troponin was ordered. (Bk Dyer DO) Admission Note Spoke With: Nixon Salomon MD Documentation of Exam: Documentation of any treatments & extenuating circumstances including Concerns Regarding Discharge (functional status, medication knowledge or non-compliance, living conditions, etc.) that warrant an admission rather than observation: Patient has an elevated troponin associated with an episode of chest pain earlier today. This raises the possibility of an acute coronary syndrome and places the patient at risk of angina, NV and mortality. I feel he requires hospitalization for continuous cardiac monitoring, serial troponins and EKGs and cardiology consultation. Echocardiogram and cardiac catheterization should be considered. In addition this patient is also suffering an acute left ureteral calculus resulting in severe pain. While in the hospital a patient should have a urology consultation for possibility of surgical intervention/treatment of his ureteral calculus, described as 6 mm, which increases the chance of non-passage. Patient's creatinine is also beginning to elevate his should be monitored as well. I feel this patient will require a multiple day hospitalization. (Bk De Oliveira MD) Critical Care Note Critical Care Note Critical Care Time: non-applicable (Bk Dyer DO) Critical Care Note Critical Care Time: 30-74 min (Bk De Oliveira MD)
[2018-04-01 06:20] LABS: ABSOLUTE BASOPHIL COUNT 0.1 /CUMM (0.0-0.2); ABSOLUTE EOSINOPHIL COUNT 0 /CUMM (0.0-0.7); ABSOLUTE GRANULOCYTE CT 9.4 /CUMM (1.4-6.5); ABSOLUTE LYMPH COUNT 0.8 /CUMM (1.2-3.4); BASOPHIL % 1.3 % (0.0-2.0); EOSINOPHIL % 0 % (0-5); GRANULOCYTE % 82.8 % (42.2-75.2); HEMATOCRIT 40.6 % (42-52); MEAN CORPUSCULAR HGB 29.2 PG (27.0-31.0); MEAN CORPUSCULAR HGB CONC 32.8 G/DL (33.0-37.0); MEAN PLATELET VOLUME 7.9 FL (7.4-10.4); PLATELET COUNT 148 /CUMM (130-400); RBC DISTRIBUTION WIDTH 13.9 % (11.5-14.5); RED BLOOD CELL CT 4.56 /CUMM (4.70-6.10); WHITE BLOOD CELL COUNT 11.4 /CUMM (4.8-10.8)
--- NOTE | 2018-04-01 06:29 | RADIOLOGY REPORT ---
EXAMINATION: XR PORTABLE CHEST CLINICAL INFORMATION: Chest pain COMPARISON: None TECHNIQUE: Portable frontal view of the chest was obtained. FINDINGS: Lung volumes are symmetric. No focal consolidation is seen. No evidence of pneumothorax, pleural effusion, or pulmonary edema. The cardiomediastinal contour is unremarkable. Sternal wires and mediastinal clips are present. No acute osseous findings are seen. IMPRESSION: No acute cardiopulmonary findings.
--- NOTE | 2018-04-01 11:32 | Cons- Urology ---
General Information and HPI Consulting Request Date of Consult: 04/01/18 Requested By: MD Yennifer, Bk-ED Reason for Consult: left hydro, and colic with ureter stone: ARF Source of Information: patient, family Exam Limitations: recieved narcotics-lethargic: is primary caregiver. History of Present Illness: 72 yr old morbidly obese, with CABG< and multiple med hx:presents for second time with severe left abd. pain, and left chest pain. Cardiac workup underway: discussed with pt left ureter stone with hydro., and ARF: recommend stent Allergies/Medications Allergies: Coded Allergies: NO KNOWN ALLERGIES (01/04/16) Home Med List: Alprazolam 0.5 MG TABLET 1 TAB PO BIDP PRN ANXIETY (Reported) Aspirin (Aspirin*) 81 MG TAB.CHEW 1 TAB PO DAILY HEART HEALTH (Reported) Calcium Polycarbophil (Fiber Tabs) 625 MG TABLET 1 TAB PO DAILY SUPPLEMENT ( Reported) Cholecalciferol (Vitamin D3) (Vitamin D) 1,000 UNIT TABLET 1 TAB PO DAILY VITAMIN SUPPORT (Reported) Exenatide Microspheres (Bydureon Bcise) 2 MG/0.85 ML AUTO.INJCT 2 MG SC QSUN DM (Reported) Glimepiride 2 MG TABLET 1 TAB PO DAILY DIABETES (Reported) Losartan Potassium 50 MG TABLET 1 TAB PO DAILY HEART (Reported) Metformin HCl (Metformin HCl ER) 500 MG [id number] 1 TAB PO DAILY DIABETES ( Reported) Metoprolol Tartrate 100 MG TABLET 1 TAB PO BID HEART (Reported) Multivit-Min/FA/Lycopen/Lutein (Centrum Silver Tablet) 0.4 MG-300 MCG-250 MCG TABLET 1 TAB PO DAILY VITAMIN SUPPORT (Reported) Howell-3S/Dha/Epa/Fish Oil (Fish Oil 1,200 MG Softgel) 360-1,200MG CAPSULE 1 CAP PO DAILY SUPPLEMENT (Reported) Omeprazole 20 MG CAPSULE.DR 1 CAP PO DAILY GI (Reported) Phentermine/Topiramate (Qsymia 11.25 MG-69 MG Capsule) 11.25 MG-69 MG CPMP.24HR 1 CAP PO DAILY WEIGHT LOSS (Reported) Pioglitazone HCl 30 MG TABLET 1 TAB PO DAILY DIABETES (Reported) Polyethylene Glycol 3350 (Miralax) 17 GRAM/DOSE POWDER 17 GM PO DAILY PRN CONSTIPATION mix with water, juice, soda, coffee or tea Simvastatin (Simvastatin*) 40 MG TABLET 1 TAB PO QPM CHOLESTEROL (Reported) Tramadol HCl/Acetaminophen (Ultracet Tablet) 37.5 MG-325 MG TABLET 1-2 TAB PO Q6P PAIN Current Medications: Current Medications Sig/Adarsh Start time Last Medication Dose Route Stop Time Status Admin Morphine Sulfate 0 .STK-MED ONE 04/01 417 DC .ROUTE Morphine Sulfate 4 MG ONCE ONE 04/01 0400 DC 04/01 IV 04/01 0401 0425 Nitroglycerin 0.4 MG ONCE ONE 04/01 0545 DC 04/01 SL 04/01 0546 0612 Ondansetron HCl 0 .STK-MED ONE 04/01 407 DC .ROUTE Ondansetron HCl 4 MG ONCE ONE 04/01 0400 DC 04/01 IV 04/01 0401 0425 Sodium Chloride 1,000 ML BOLUS ONE 04/01 400 DC 04/01 IV 04/01 0459 0425 Past History Medical History Neurological: NONE EENT: NONE Cardiovascular: hypertension, hyperlipidemia Respiratory: asthma Gastrointestinal: diverticulitis, PART OF COLON REMOVED Hepatic: NONE Renal: KIDNEY STONES Musculoskeletal: NONE Psychiatric: NONE Endocrine: NONE Blood Disorders: NONE Cancer(s): NONE Surgical History Pertinent Surgical History: COLON RESECTION Psychosocial History Where Do You Live? Home Who Do You Live With? spouse Services at Home: None Primary Language: Polish Illicit Drug Use: denies illicit drug use Functional Ability ADLs Independent: dressing, eating, toileting, bathing. Ambulation: independent IADLs Independent: shopping, housework, finances, food prep, telephone, transportation , medication admin. Review of Systems Review of Systems Constitutional: Reports: see HPI, malaise, weakness. EENTM: Denies: no symptoms. Cardiovascular: Reports: chest pain. Respiratory: Denies: no symptoms. GI: Reports: abdominal pain, bloating. Genitourinary: Denies: no symptoms. Skin: Denies: no symptoms. Exam & Diagnostic Data Vital Signs and I&O Vital Signs Date Time Temp Pulse Resp B/P B/P Pulse O2 O2 Flow FiO2 Mean Ox Delivery Rate 04/01 0937 100 14 152/74 96 Room Air 04/01 0750 88 18 148/78 96 Room Air 04/01 0645 90 16 143/71 97 Room Air 04/01 0511 90 20 182/86 98 Room Air Room Air 04/01 0311 98.0 88 16 153/84 98 Room Air Room Air Intake & Output 04/01 1600 04/01 0800 04/01 0000 03/31 1600 03/31 0803/31 0000 Intake Total 1000 Output Total Balance 1000 Intake, IV 1000 Patient 257 lb Weight Physical Exam General Appearance: no apparent distress, obese Head: atraumatic Eyes: Bilateral: normal appearance. Respiratory: normal breath sounds Cardiovascular: regular rate/rhythm Gastrointestinal: normal bowel sounds Back: CVA tenderness (L) Extremities: normal inspection Skin: intact, normal color, warm/dry Last 24 Hours of Labs: Laboratory Tests 04/01 04/01 0926 0900 Chemistry Troponin I (<0.11 ng/ml) 0.38 *H Urines Urinalysis LIGHT H Urine Color (YEL,AMB,STR) YEL Urine Clarity (CLEAR) HAZY H Urine pH (5.0 - 8.0) 6.0 Ur Specific [place] (1.001 - 1.035) 1.015 Urine Protein (NEG,<30 MG/DL) TRACE H Urine Ketones (NEG) NEG Urine Nitrite (NEG) NEG Urine Bilirubin (NEG) NEG Urine Urobilinogen (0.1 - 1.0 EU/dl) 0.2 Ur Leukocyte Esterase (NEG) MOD H Ur Microscopic SEDIMENT EXAMINED Urine RBC (0 - 5 /HPF) 15-25 H Urine WBC (0 - 2 /HPF) 15-25 H Ur Epithelial Cells (NONE,FEW) MOD H Urine Bacteria (NEG/NONE) FEW H Urine Mucus (FEW,NONE) FEW Urine Hemoglobin (NEG) LARGE H Urine Glucose (N MG/DL) NEG 04/01 0609 Chemistry Sodium (137 - 145 mmol/L) 141 Potassium (3.5 - 5.1 mmol/L) 4.6 Chloride (98 - 107 mmol/L) 110 H Carbon Dioxide (22 - 30 mmol/L) 17 L Anion Gap (5 - 16) 14 BUN (9 - 20 mg/dL) 39 H Creatinine (0.7 - 1.2 mg/dL) 3.4 H Estimated GFR (>60 ml/min) 18 L BUN/Creatinine Ratio (7 - 25 %) 11.5 Glucose (65 - 99 mg/dL) 156 H Calcium (8.4 - 10.2 mg/dL) 8.6 Total Bilirubin (0.2 - 1.3 mg/dL) 0.6 AST (17 - 59 U/L) 20 ALT (21 - 72 U/L) 29 Alkaline Phosphatase (< 127 U/L) 64 Troponin I (<0.11 ng/ml) 0.10 Total Protein (6.3 - 8.2 g/dL) 6.1 L Albumin (3.5 - 5.0 g/dL) 3.1 L Globulin (1.9 - 4.2 gm/dL) 3.0 Albumin/Globulin Ratio (1.1 - 2.2 %) 1.0 L Hematology CBC w Diff NO MAN DIFF REQ WBC (4.8 - 10.8 /CUMM) 11.4 H RBC (4.70 - 6.10 /CUMM) 4.56 L Hgb (14.0 - 18.0 G/DL) 13.3 L Hct (42 - 52 %) 40.6 L MCV (80.0 - 94.0 FL) 89.0 MCH (27.0 - 31.0 PG) 29.2 MCHC (33.0 - 37.0 G/DL) 32.8 L RDW (11.5 - 14.5 %) 13.9 Plt Count (130 - 400 /CUMM) 148 MPV (7.4 - 10.4 FL) 7.9 Gran % (42.2 - 75.2 %) 82.8 H Lymphocytes % (20.5 - 51.1 %) 6.9 L Monocytes % (1.7 - 9.3 %) 9.0 Eosinophils % (0 - 5 %) 0 Basophils % (0.0 - 2.0 %) 1.3 Absolute Granulocytes (1.4 - 6.5 /CUMM) 9.4 H Absolute Lymphocytes (1.2 - 3.4 /CUMM) 0.8 L Absolute Monocytes (0.10 - 0.60 /CUMM) 1.0 H Absolute Eosinophils (0.0 - 0.7 /CUMM) 0 Absolute Basophils (0.0 - 0.2 /CUMM) 0.1 Imaging Results: PATIENT: HARIS MORALES PRESENT AGE: 72 PATIENT ACCOUNT NO: [id number] : 47 LOCATION: [facility] ORDERING PHYSICIAN: Bk De Oliveira MD SERVICE DATE: 03/31/18 EXAM TYPE: CAT - CT ABD & PELVIS W/O IV CONTRAS EXAMINATION: CT ABDOMEN AND PELVIS WITHOUT CONTRAST CLINICAL INFORMATION: Left lower quadrant pain; question diverticulitis. COMPARISON: CT abdomen and pelvis dated 12/27/2017. TECHNIQUE: Multidetector volumetric imaging was performed from the superior aspect of the liver through the pubic symphysis. Sagittal and coronal reformatted images were obtained on the technologist's workstation. DLP: 1602.45 mGy-cm FINDINGS: LUNG BASES: The visualized lung bases are unremarkable. There are coronary artery atherosclerotic calcifications. LIVER, GALLBLADDER, AND BILIARY TREE: The liver is normal in size, shape, and attenuation. There are benign, calcified hepatic granulomas. No focal hepatic lesion or biliary ductal dilatation is present. The previously noted anterior left hepatic lobe mass is not presently identified without the benefit of intravenous contrast. The gallbladder is surgically absent, and there is unchanged high attenuation material within the remnant cystic duct. PANCREAS: Unremarkable. SPLEEN: Unremarkable. ADRENAL GLANDS: Unremarkable. KIDNEYS AND URETERS: The kidneys are normal in size, shape, and attenuation. There is very mild left hydronephroureter secondary to a 6 mm distal left ureteric calculus (2:72). No right hydronephrosis, hydroureter or calculi seen. No perinephric stranding. BLADDER: Unremarkable. GASTROINTESTINAL TRACT: A sigmoid anastomotic staple line is seen. There is no bowel obstruction, free intraperitoneal air or abscess. No focal bowel wall thickening is seen. The vermiform appendix appears normal. ABDOMINAL WALL: No significant hernia is appreciated. LYMPH NODES: Normal. VASCULAR: There is moderate aortoiliac atherosclerotic change. No abdominal aortic aneurysm is seen. PELVIC VISCERA: The prostate and seminal vesicles are unremarkable. Coarse central prostate allegations are noted. OSSEOUS STRUCTURES: There is multi-level thoracolumbar degenerative disc disease and spondylosis, most pronounced at L3-L4. No acute or aggressive osseous abnormality is seen. IMPRESSION: 1. There is mild left hydronephroureter secondary to a 6 mm distal left ureteric calculus. 2. Sigmoid anastomotic staple line noted. No bowel obstruction, free intraperitoneal air or abscess is seen. There is no appendicitis or diverticulitis. 3. The gallbladder is surgically absent. Retained cystic duct stones unchanged. 4. Previously noted hepatic mass is not redemonstrated without the benefit of intravenous contrast. 5. There are thoracolumbar degenerative changes. DICTATED BY: Carter Sargent MD DATE/TIME DICTATED:03/31/181214 [employer]:SHAWN DATE/TIME TRANSCRIBED:03/31/181214 CONFIDENTIAL, DO NOT COPY WITHOUT APPROPRIATE AUTHORIZATION. <Electronically signed in Other Vendor System> SIGNED BY: Carter Sargent MD 03/31/18 1226 Assessment/Plan Assessment/Plan left hydro due to stone, with arf:needs stent after cardiac clearance Copies To: Maxim Fernandez MD Consult Acknowledgment - Thank you for your consult request. Attending MD Review Statement Attending Statement Attending MD Statement: examined this patient, discussed with family Attending Assessment/Plan: for left stent when cleared by cardiology
--- NOTE | 2018-04-01 11:43 | History & Physical ---
[facility] 04[facility] 1141: General Information and HPI MD Statement: I have seen and personally examined HARIS MORALES and documented this H&P. The patient is a 72 year old M who presented with a patient stated chief complaint of [chest pain and abdominal pain]. Source of Information: patient, family Exam Limitations: recieved narcotics-lethargic: is primary caregiver. History of Present Illness: 72-year-old gentleman with past medical history of diabetes, coronary artery disease status post CABG 9 years ago at [facility], hypertension, hyperlipidemia came to [place] [facility] with complaints of abdominal pain and chest pain since 3:00 in the morning. According to the patient patient, he had 10 x 10 left quadrant lower abdominal pain since 4 days ago. He also had one episode of hematuria 4 days ago. Patient had decreased urinary stream since then. Patient was taking Aleve to help with the pain with no much improvement. Patient came to [place] [facility] yesterday and had a CAT scan done which showed left mild hydroureteronephrosis with 6 mm distal left ureteral calculus. Patient had a creatinine of 1.8 then and sent home with Ultracet with follow-up with Dr. Fernandez as outpatient. Patient went home with little improvement. 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 During the same time he had weak substernal chest pain a 5 x 10 in intensity with no radiation and not relieved by Aleve. Patient came to [place] [facility] later. He denies fever, chills, palpitation, orthopnea, paroxysmal nocturnal dyspnea, weakness, loss of consciousness, dizziness, fall. Patient endorses previous history of renal stone. Patient follows up with Dr. Omer and Dr. Canseco as outpatient. Allergies/Medications Allergies: Coded Allergies: NO KNOWN ALLERGIES (01/04/16) Home Med list Alprazolam 0.5 MG TABLET 1 TAB PO BIDP PRN ANXIETY (Reported) Aspirin (Aspirin*) 81 MG TAB.CHEW 1 TAB PO DAILY HEART HEALTH (Reported) Calcium Polycarbophil (Fiber Tabs) 625 MG TABLET 1 TAB PO DAILY SUPPLEMENT ( Reported) Cholecalciferol (Vitamin D3) (Vitamin D) 1,000 UNIT TABLET 1 TAB PO DAILY VITAMIN SUPPORT (Reported) Exenatide Microspheres (Bydureon Bcise) 2 MG/0.85 ML AUTO.INJCT 2 MG SC QSUN DM (Reported) Glimepiride 2 MG TABLET 1 TAB PO DAILY DIABETES (Reported) Losartan Potassium 50 MG TABLET 1 TAB PO DAILY HEART (Reported) Metformin HCl (Metformin HCl ER) 500 MG [id number] 1 TAB PO DAILY DIABETES ( Reported) Metoprolol Tartrate 100 MG TABLET 1 TAB PO BID HEART (Reported) Multivit-Min/FA/Lycopen/Lutein (Centrum Silver Tablet) 0.4 MG-300 MCG-250 MCG TABLET 1 TAB PO DAILY VITAMIN SUPPORT (Reported) [place]-3S/Dha/Epa/Fish Oil (Fish Oil 1,200 MG Softgel) 360-1,200MG CAPSULE 1 CAP PO DAILY SUPPLEMENT (Reported) Omeprazole 20 MG CAPSULE.DR 1 CAP PO DAILY GI (Reported) Phentermine/Topiramate (Qsymia 11.25 MG-69 MG Capsule) 11.25 MG-69 MG CPMP.24HR 1 CAP PO DAILY WEIGHT LOSS (Reported) Pioglitazone HCl 30 MG TABLET 1 TAB PO DAILY DIABETES (Reported) Polyethylene Glycol 3350 (Miralax) 17 GRAM/DOSE POWDER 17 GM PO DAILY PRN CONSTIPATION mix with water, juice, soda, coffee or tea Simvastatin (Simvastatin*) 40 MG TABLET 1 TAB PO QPM CHOLESTEROL (Reported) Tramadol HCl/Acetaminophen (Ultracet Tablet) 37.5 MG-325 MG TABLET 1-2 TAB PO Q6P PAIN Compliance With Home Meds: GOOD Past History Travel History Traveled to [place] past 21 day No Medical History Neurological: NONE EENT: NONE Cardiovascular: hypertension, hyperlipidemia Respiratory: asthma Gastrointestinal: diverticulitis, PART OF COLON REMOVED Hepatic: NONE Renal: KIDNEY STONES Musculoskeletal: NONE Psychiatric: NONE Endocrine: NONE Blood Disorders: NONE Cancer(s): NONE Surgical History Surgical History: COLON RESECTION ECHO Results (as available) EF% 65 Past Family/Social History Family History Relations & Conditions if any Relation not specified for: *No pertinent family history Psychosocial History Where do you live? Home Who Do You Live With? spouse Services at Home: None Primary Language: Indonesian Smoking Status: Never Smoked ETOH Use: occasional use Illicit Drug Use: denies illicit drug use Functional Ability ADLs Independent: dressing, eating, toileting, bathing. Ambulation: independent IADLs Independent: shopping, housework, finances, food prep, telephone, transportation , medication admin. Review of Systems Review of Systems Constitutional: Reports: weakness. Cardiovascular: Reports: chest pain. GI: Reports: abdominal pain. Genitourinary: Reports: hematuria. Exam & Diagnostic Data Last 24 Hrs of Vital Signs/I&O Vital Signs Date Time Temp Pulse Resp B/P B/P Pulse O2 O2 Flow FiO2 Mean Ox Delivery Rate 04/01 1503 98.2 100 18 110/70 94 Room Air 04/01 1302 99.3 107 16 112/58 98 Room Air 04/01 0937 100 14 152/74 96 Room Air 04/01 0750 88 18 148/78 96 Room Air 04/01 0645 90 16 143/71 97 Room Air 04/01 0511 90 20 182/86 98 Room Air Room Air 04/01 0311 98.0 88 16 153/84 98 Room Air Room Air Intake & Output 04/01 1600 04/01 0800 04/01 0000 Intake Total 1000 Output Total Balance 1000 Intake, IV 1000 Patient 257 lb 257 lb Weight Physical Exam General Appearance Alert, Oriented X3, Cooperative, No Acute Distress Cardiovascular Regular Rate, Normal S1, Normal S2, No Murmurs Lungs Clear to Auscultation Abdomen Soft, No Hepatospenomegaly, BOWEL SOUNDS HEARD. MILD LEFT UPPER QUADRANT TENDERNESAS Neurological Strength at 5/5 X4 Ext, Normal Tone, Sensation Intact Last 24 Hrs of Labs/Shaka: Laboratory Tests 04/01/18 0926: Troponin I 0.38 *H 04/01/18 0900: Urinalysis LIGHT H, Urine Color YEL, Urine Clarity HAZY H, Urine pH 6.0, Ur Specific [place] 1.015, Urine Protein TRACE H, Urine Ketones NEG, Urine Nitrite NEG, Urine Bilirubin NEG, Urine Urobilinogen 0.2, Ur Leukocyte Esterase MOD H, Ur Microscopic SEDIMENT EXAMINED, Urine RBC 15-25 H, Urine WBC 15-25 H, Ur Epithelial Cells MOD H, Urine Bacteria FEW H, Urine Mucus FEW, Urine Hemoglobin LARGE H, Urine Glucose NEG 04/01/18 0609: Anion Gap 14, Estimated GFR 18 L, BUN/Creatinine Ratio 11.5, Glucose 156 H, Calcium 8.6, Total Bilirubin 0.6, AST 20, ALT 29, Alkaline Phosphatase 64, Troponin I 0.10, Total Protein 6.1 L, Albumin 3.1 L, Globulin 3.0, Albumin/ Globulin Ratio 1.0 L, CBC w Diff NO MAN DIFF REQ, RBC 4.56 L, MCV 89.0, MCH 29.2, MCHC 32.8 L, RDW 13.9, MPV 7.9, Gran % 82.8 H, Lymphocytes % 6.9 L, Monocytes % 9.0, Eosinophils % 0, Basophils % 1.3, Absolute Granulocytes 9.4 H, Absolute Lymphocytes 0.8 L, Absolute Monocytes 1.0 H, Absolute Eosinophils 0, Absolute Basophils 0.1 Microbiology 04/01 0359 URINE ROUT: Urine Culture - ORD Diagnostic Data CXR Results IMPRESSION: No acute cardiopulmonary findings. Other Results CT ABD 1. There is mild left hydronephroureter secondary to a 6 mm distal left ureteric calculus. 2. Sigmoid anastomotic staple line noted. No bowel obstruction, free intraperitoneal air or abscess is seen. There is no appendicitis or diverticulitis. 3. The gallbladder is surgically absent. Retained cystic duct stones unchanged. 4. Previously noted hepatic mass is not redemonstrated without the benefit of intravenous contrast. 5. There are thoracolumbar degenerative changes. Assessment/Plan Assessment: 72-year-old gentleman with past medical history of diabetes, coronary artery disease status post CABG 9 years ago at [facility], hypertension, hyperlipidemia came to [place] ER with complaints of abdominal pain and chest pain. Admission vitals Pulse rate 100, respiratory rate 14, blood pressure 152/74, saturating 96 at room air Admission labs WBC 11.4, hemoglobin 13.3, platelet count 148, sodium 141, potassium 4.6, carbon dioxide 17, BUN 39 creatinine 3.4 [baseline 1.1], troponin 0 0.10----> 0.38 ED treatment Morphine 4 mg once, normal saline bolus 1 L, Zofran once,Sublingual nitroglycerin once Assessment and plan 1. Chest pain-rule out ACS Patient had a chest pain which was substernal not relieved by Aleve. His chest pain was more substernal 5 x 10 in intensity with no radiation. He has had elevated troponin with subtle EKG changes. At this point we need to rule out ACS. We will trend his troponin and EKG. Cardiology was consulted who suggested to continue the current management and do echocardiogram. We will continue his home dose metoprolol 100 twice daily. Continue his aspirin. 2. Left hydroureteronephrosis with renal calculi-awaiting stent placement Patient was seen by Dr. Fernandez for his renal calculi causing hydroureteronephrosis. Patient is planned for ureteral stent placement once he is risk stratified by cardiology. His RCRI index is 11%. Patient now was on heart healthy diet and IV fluids. We will repeat his creatinine and troponin in the evening. Depending upon the troponin and creatinine level patient will go for stent tomorrow. Urology is on board. Patient has mild non-anionic gap metabolic acidosis which can be secondary due to diabetes. 3. Insulin-dependent diabetes mellitus We will stop his home dose pioglitazone, glimepiride, insulin. We will start him on Accu-Chek and NovoLog sliding scale insulin. 4. Coronary artery disease status post CABG-stable Continue his beta-emmett, aspirin, atorvastatin. 5. Hypertension- patient blood pressure is 110/70. At present we will continue him on 100 metoprolol twice daily. 6. Hyperlipidemia- continue atorvastatin 20 daily. 7. Morbid obesity- patient is on QSYMIA 11.25 mg daily for many years. Topiramate has side effect of causing renal stones. We will hold this for now. 8. Constipation Patient did have a bowel movement for the past 4 days. We will start him on bowel regimen with senna and MiraLAX. We will give him once Dulcolax suppository now. Diet-heart healthy diet DVT prophylaxis-Alps, heparin Patient will be n.p.o. from midnight for possible ureteral stent placement tomorrow. As Ranked By This Provider Problem List: 1. Renal colic 2. Chest pain Core Measures/Misc (06/04) Acute Coronary Syndrome ACS Diagnosis: No Congestive Heart Failure Congestive Heart Failure Diagnosis No Cerebrovascular Accident CVA/TIA Diagnosis: No VTE (View Protocol) VTE Risk Factors Age>40 No Mechanical VTE Prophylaxis d/t Other No VTE Pharm Prophylaxis d/t Other Sepsis (View protocol) Sepsis Present: No If YES complete Sepsis Event Note If YES complete Sepsis Event Note Leia Garcia 04/01/18 4626: Core Measures/Misc (06/04) Sepsis (View protocol) If YES complete Sepsis Event Note If YES complete Sepsis Event Note Attending MD Review Statement Attending Statement Attending MD Statement: examined this patient, discuss w/resident/PA/ETCHER ENAMELING, agreed w/resident/PA/ETCHER ENAMELING, discussed with family, reviewed EMR data (avail) Attending Assessment/Plan: 72 yr old male with pmh of cad s/p 4 vessel cabg 9 years ago, ? renal stones, Morbid obesity on wt loss med ( Qsymia) , DM was seen in ER yesterday for LLQ abdominal pain for 3-4 days with decreased po intake and decreased urination. Pt was found to have left side 6mm obstructing ureteral stones with mild left side hydronephrosis. Pt was discharged home and told to come back if his pain was not getting controlled and he was scheduled to f/u with urology as an outpatinet. Pt came back with worsening pain and had nausea and vomiting associated with it and some chest pain after he had nausea and vomiting. Pt says his chest pain was 5/10 and was different than the chest pain related to his CABG time. Pt in ER was found to be TREVOR wiht cr of 3.4 and his second trop was positive at 0.38. Type 2 UT- Pt was seen in ER by Dr Cheek and plan is to trend troponins. Plan is to monitor on telemetry and get an echo to evaluate for EF and wall motion abnormalaties. will cont on aspirin for now and his home beta emmett. TREVOR- likely sec to poor intake and dehydration and ureteral stone . iv hydration and recheck labs. pt was also taking nsaids at home for pain. If pt is improving plan would be to get ureteral stent placed in am . will keep him npo past midnight in that case. Dr Pan from urology following the case.
[2018-04-01 15:03] VITALS: BP 110/70
--- NOTE | 2018-04-01 15:13 | Admission Certification ---
Admission Certification Certification Statement - As attending physician, I certify that at the time of - admission, based on clinical presentation, severity of - symptoms, need for further diagnostic testing and - therapeutic interventions, and risk of adverse outcomes - without in-hospital treatment, in my clinical assessment, - this patient requires an acute hospital stay for a minimum - of two nights or longer. I have also considered psychsocial - factors such as support system, advanced age, financial - issues, cognitive issues, and failed out-patient treatments, - past re-admission history, safety of patient, and lack of - compliance as applicable. Specific rationale supporting this admission is: NSTEMI and left side ureteral stone with hydronephrosis
--- NOTE | 2018-04-01 15:21 | Cons- Cardiology ---
General Information and HPI Consulting Request Date of Consult: 04/01/18 Requested By: Leia Garcia MD Reason for Consult: Chest discomfort; elevated troponin Source of Information: patient, family Exam Limitations: no limitations History of Present Illness: Patient is a 72-year-old male. 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 The patient is now admitted to the hospital with kidney stones, mild chest discomfort, and an elevated troponin. The patient's past medical history is remarkable for diabetes, coronary artery disease, with a history of bypass surgery about 9 years ago at [facility]. He also has history of hypertension and hyperlipidemia. The patient was in the [facility] emergency room yesterday with abdominal discomfort and noted to have a 6 mm left ureteral calculus with evidence of mild hydronephrosis. He was discharged home for further evaluation as outpatient. However if the patient came back to the emergency room today with worsening symptoms of abdominal discomfort. He also noted very mild central chest discomfort as well. The patient's ECG in the emergency room showed a right bundle branch block which is chronic but there were slightly more prominent ST-T wave changes noted. The patient was kept in the emergency room for a second ECG and troponin and the second troponin was elevated at 0.38. The patient notes that he has been having intermittent episodes of substernal chest burning discomfort which he thought were related to reflux. He denies any significant exertional symptoms. In view of the patient's symptoms, troponin, etc. he is kept in the hospital for further monitoring of his cardiac status. The patient is chest discomfort free at the present time Allergies/Medications Allergies: Coded Allergies: NO KNOWN ALLERGIES (01/04/16) Home Med List: Alprazolam 0.5 MG TABLET 1 TAB PO BIDP PRN ANXIETY (Reported) Aspirin (Aspirin*) 81 MG TAB.CHEW 1 TAB PO DAILY HEART HEALTH (Reported) Calcium Polycarbophil (Fiber Tabs) 625 MG TABLET 1 TAB PO DAILY SUPPLEMENT ( Reported) Cholecalciferol (Vitamin D3) (Vitamin D) 1,000 UNIT TABLET 1 TAB PO DAILY VITAMIN SUPPORT (Reported) Exenatide Microspheres (Bydureon Bcise) 2 MG/0.85 ML AUTO.INJCT 2 MG SC QSUN DM (Reported) Glimepiride 2 MG TABLET 1 TAB PO DAILY DIABETES (Reported) Losartan Potassium 50 MG TABLET 1 TAB PO DAILY HEART (Reported) Metformin HCl (Metformin HCl ER) 500 MG [id number] 1 TAB PO DAILY DIABETES ( Reported) Metoprolol Tartrate 100 MG TABLET 1 TAB PO BID HEART (Reported) Multivit-Min/FA/Lycopen/Lutein (Centrum Silver Tablet) 0.4 MG-300 MCG-250 MCG TABLET 1 TAB PO DAILY VITAMIN SUPPORT (Reported) [place]-3S/Dha/Epa/Fish Oil (Fish Oil 1,200 MG Softgel) 360-1,200MG CAPSULE 1 CAP PO DAILY SUPPLEMENT (Reported) Omeprazole 20 MG CAPSULE.DR 1 CAP PO DAILY GI (Reported) Phentermine/Topiramate (Qsymia 11.25 MG-69 MG Capsule) 11.25 MG-69 MG CPMP.24HR 1 CAP PO DAILY WEIGHT LOSS (Reported) Pioglitazone HCl 30 MG TABLET 1 TAB PO DAILY DIABETES (Reported) Polyethylene Glycol 3350 (Miralax) 17 GRAM/DOSE POWDER 17 GM PO DAILY PRN CONSTIPATION mix with water, juice, soda, coffee or tea Simvastatin (Simvastatin*) 40 MG TABLET 1 TAB PO QPM CHOLESTEROL (Reported) Tramadol HCl/Acetaminophen (Ultracet Tablet) 37.5 MG-325 MG TABLET 1-2 TAB PO Q6P PAIN Current Medications: Current Medications Sig/Adarsh Start time Last Medication Dose Route Stop Time Status Admin Acetaminophen 0 .STK-MED ONE 04/01 1312 DC IV Acetaminophen 1,000 MG Q6P PRN 04/01 1300 AC 04/01 N/A 1 UNIT IV 1324 Aspirin 81 MG DAILY 04/01 1511 AC PO Atorvastatin Calcium 20 MG 1700 04/01 1700 AC PO Bisacodyl 10 MG ONCE ONE 04/01 1515 DC DE 04/01 1516 Dextrose/Sodium 1,000 ML Q13H 04/01 1315 AC Chloride IV Insulin Aspart 0 TIDAC 04/01 1700 AC SC Metoprolol Tartrate 100 MG BID 04/01 1515 AC PO Morphine Sulfate 2 MG Q4P PRN 04/01 1300 AC IV Morphine Sulfate 0 .STK-MED ONE 04/01 0417 DC .ROUTE Morphine Sulfate 4 MG ONCE ONE 04/01 0400 DC 04/01 IV 04/01 0401 0425 Nitroglycerin 0.5 GM Q6 PRN 04/01 1315 AC TOP Nitroglycerin 0.4 MG ONCE ONE 04/01 0545 DC 04/01 SL 04/01 0546 0612 Omeprazole 20 MG DAILY 04/01 1512 AC PO Ondansetron HCl 0 .STK-MED ONE 04/01 0407 DC .ROUTE Ondansetron HCl 4 MG ONCE ONE 04/01 400 DC 04/01 IV 04/01 401 0425 Polyethylene Glycol 17 GM DAILY 04/01 1515 AC PO Senna/Docusate Sodium 1 TAB BID 04/01 2100 AC PO Sodium Chloride 1,000 ML BOLUS ONE 04/01 040 DC 04/01 IV 04/01 0459 0425 Past History Travel History Traveled to [place] past 21 day No Medical History Blood Transfusion Hx: No Neurological: NONE EENT: NONE Cardiovascular: hypertension, hyperlipidemia Respiratory: asthma Gastrointestinal: diverticulitis, PART OF COLON REMOVED Hepatic: NONE Renal: KIDNEY STONES Musculoskeletal: NONE Psychiatric: NONE Endocrine: diabetes Blood Disorders: NONE Cancer(s): NONE Surgical History Surgical History: COLON RESECTION Family History Relations & Conditions If Any: Relation not specified for: *No pertinent family history Psychosocial History Where Do You Live? Home Who Do You Live With? spouse Services at Home: None Primary Language: Albanian Smoking Status: Never Smoked ETOH Use: occasional use Illicit Drug Use: denies illicit drug use Functional Ability ADLs Independent: dressing, eating, toileting, bathing. Ambulation: independent IADLs Independent: shopping, housework, finances, food prep, telephone, transportation , medication admin. ECHO Results (as available) EF% 65 Exam & Diagnostic Data Vital Signs and I&O Vital Signs Date Time Temp Pulse Resp B/P B/P Pulse O2 O2 Flow FiO2 Mean Ox Delivery Rate 04/01 1503 98.2 100 18 110/70 94 Room Air 04/01 1302 99.3 107 16 112/58 98 Room Air 04/01 0937 100 14 152/74 96 Room Air 04/01 0750 88 18 148/78 96 Room Air 04/01 0645 90 16 143/71 97 Room Air 04/01 0511 90 20 182/86 98 Room Air Room Air 04/01 0311 98.0 88 16 153/84 98 Room Air Room Air Intake & Output 04/01 1600 04/01 0800 /15 0000 / 1600 03/31 0800 / 0000 Intake Total 1000 Output Total Balance 1000 Intake, IV 1000 Patient 257 lb 257 lb Weight Physical Exam: General Appearance: well developed/nourished, overweight white male, alert, awake, oriented Head: normal HEENT: Normal Neck: supple, JVP normal, carotid upstrokes normal bilaterally, no masses or thyromegaly Respiratory: chest non-tender, clear to auscultation and percussion bilaterally Cardiovascular: regular rate/rhythm, normal S1, S2, 1/6 systolic murmur Abdomen: normal bowel sounds, soft, non-tender Extremities: normal inspection, no edema Vascular: Pulses are 2+ and equal bilaterally Neurologic: Grossly normal/nonfocal Labs/Shaka Results: Laboratory Tests 04/01 04/01 0926 0900 Chemistry Troponin I (<0.11 ng/ml) 0.38 *H Urines Urinalysis LIGHT H Urine Color (YEL,AMB,STR) YEL Urine Clarity (CLEAR) HAZY H Urine pH (5.0 - 8.0) 6.0 Ur Specific [place] (1.001 - 1.035) 1.015 Urine Protein (NEG,<30 MG/DL) TRACE H Urine Ketones (NEG) NEG Urine Nitrite (NEG) NEG Urine Bilirubin (NEG) NEG Urine Urobilinogen (0.1 - 1.0 EU/dl) 0.2 Ur Leukocyte Esterase (NEG) MOD H Ur Microscopic SEDIMENT EXAMINED Urine RBC (0 - 5 /HPF) 15-25 H Urine WBC (0 - 2 /HPF) 15-25 H Ur Epithelial Cells (NONE,FEW) MOD H Urine Bacteria (NEG/NONE) FEW H Urine Mucus (FEW,NONE) FEW Urine Hemoglobin (NEG) LARGE H Urine Glucose (N MG/DL) NEG 04/01 0609 Chemistry Sodium (137 - 145 mmol/L) 141 Potassium (3.5 - 5.1 mmol/L) 4.6 Chloride (98 - 107 mmol/L) 110 H Carbon Dioxide (22 - 30 mmol/L) 17 L Anion Gap (5 - 16) 14 BUN (9 - 20 mg/dL) 39 H Creatinine (0.7 - 1.2 mg/dL) 3.4 H Estimated GFR (>60 ml/min) 18 L BUN/Creatinine Ratio (7 - 25 %) 11.5 Glucose (65 - 99 mg/dL) 156 H Calcium (8.4 - 10.2 mg/dL) 8.6 Total Bilirubin (0.2 - 1.3 mg/dL) 0.6 AST (17 - 59 U/L) 20 ALT (21 - 72 U/L) 29 Alkaline Phosphatase (< 127 U/L) 64 Troponin I (<0.11 ng/ml) 0.10 Total Protein (6.3 - 8.2 g/dL) 6.1 L Albumin (3.5 - 5.0 g/dL) 3.1 L Globulin (1.9 - 4.2 gm/dL) 3.0 Albumin/Globulin Ratio (1.1 - 2.2 %) 1.0 L Hematology CBC w Diff NO MAN DIFF REQ WBC (4.8 - 10.8 /CUMM) 11.4 H RBC (4.70 - 6.10 /CUMM) 4.56 L Hgb (14.0 - 18.0 G/DL) 13.3 L Hct (42 - 52 %) 40.6 L MCV (80.0 - 94.0 FL) 89.0 MCH (27.0 - 31.0 PG) 29.2 MCHC (33.0 - 37.0 G/DL) 32.8 L RDW (11.5 - 14.5 %) 13.9 Plt Count (130 - 400 /CUMM) 148 MPV (7.4 - 10.4 FL) 7.9 Gran % (42.2 - 75.2 %) 82.8 H Lymphocytes % (20.5 - 51.1 %) 6.9 L Monocytes % (1.7 - 9.3 %) 9.0 Eosinophils % (0 - 5 %) 0 Basophils % (0.0 - 2.0 %) 1.3 Absolute Granulocytes (1.4 - 6.5 /CUMM) 9.4 H Absolute Lymphocytes (1.2 - 3.4 /CUMM) 0.8 L Absolute Monocytes (0.10 - 0.60 /CUMM) 1.0 H Absolute Eosinophils (0.0 - 0.7 /CUMM) 0 Absolute Basophils (0.0 - 0.2 /CUMM) 0.1 Diagnostic Data EKG Results Right bundle branch block with fluctuating anterior ST-T changes CXR Results FINDINGS: Lung volumes are symmetric. No focal consolidation is seen. No evidence of pneumothorax, pleural effusion, or pulmonary edema. The cardiomediastinal contour is unremarkable. Sternal wires and mediastinal clips are present. No acute osseous findings are seen. IMPRESSION: No acute cardiopulmonary findings. Assessment/Plan Assessment/Plan Assessment: 1. Chest discomfort with mild troponin elevation 2. History of coronary artery disease, status post prior bypass surgery 3. Left nephrolithiasis with ureteral stone and mild hydronephrosis 4. Acute renal insufficiency 5. Abnormal ECG with right bundle branch block 6. History of hypertension 7. Diabetes Recommendations: -Admit the patient to [address] [place] [address] telemetry -Serial troponins until troponin decreasing -ECG tonight and again in the morning. -Check ECG with any episodes of chest discomfort -Echocardiogram to assess left ventricular regional wall motion -Continue continue metoprolol; continue aspirin -Hold losartan in view of elevated creatinine; consider formal nephrology input -Urology consult pending -Urology intervention on hold pending further evaluation of cardiac status -Obtain copies of outside cardiology records for review -Please notify me of any recurrent chest discomfort Consult Acknowledgment - Thank you for your consult request.
--- NOTE | 2018-04-01 17:42 | ECHOCARDIOGRAM REPORT ---
HARIS MORALES Age: 72 : 1945 Gender: M Exam Date: 04/01/2018 11:38 Exam Location: ER Ht (in): 67 Wt (lb): 257 BSA: 2.40 BP: 152 / 74 Ordering Physician: Bk De Oliveira MD Referring Physician: David Cheek MD Technologist: Edie Aldridge JAROCHO Room Number: ER#1 Indications: Rhythm: Sinus Technical Quality: Poor, Technically difficult study FINDINGS Left Ventricle Normal size left ventricle. No obvious regional wall motion abnormalities. Normal left ventricular ejection fraction estimated at 55-60%. Right Ventricle Right ventricle not well visualized, grossly normal. Right Atrium Right atrium not well visualized, grossly normal. Left Atrium Mild left atrial dilatation. Mitral Valve Mitral valve thickened. Trace mitral regurgitation. Aortic Valve Trileaflet aortic valve. Diffuse thickening (sclerosis) of the aortic valve cusps without reduced excursion. No aortic stenosis. No aortic regurgitation. Tricuspid Valve Tricuspid valve not well visualized. Trace to mild tricuspid regurgitation. Pulmonic Valve Pulmonic valve not well visualized, grossly normal. Pericardium No pericardial effusion. Great Vessels Aortic root and proximal ascending aorta not well visualized, grossly normal. CONCLUSIONS 1. This was a technically difficult and limited study due to the patient's body habitus. 2. Aortic sclerosis is present with no valvular stenosis or insufficiency. 3. Mitral leaflet thickening is present with minimal to mild annular calcification and minimal mitral insufficiency with mild left atrial enlargement. 4. There is no significant pericardial fluid that on the study. 5. The left ventricular chamber size and systolic function appear normal. Accurate wall motion assessment was not possible due to the quality of the images obtained. There are no obvious resting wall motion and normalities. 6. Minimal to mild tricuspid insufficiency is present with no evidence of significant pulmonary hypertension. David Cheek M.D. (Electronically Signed) Final Date: 01 April 2018 17:41 MEASUREMENTS (Male / Female) Normal Values 2D ECHO LV Diastolic Diameter PLAX 3.7 cm 4.2 - 5.9 / 3.9 - 5.3 cm LV Systolic Diameter PLAX 1.7 cm 2.1 - 4.0 cm LV Fractional Shortening PLAX 54.1 % 25 - 46 % LV Ejection Fraction 2D Teich 85.6 % IVS Diastolic Thickness 1.0 cm LVPW Diastolic Thickness 1.1 cm LV Relative Wall Thickness 0.6 RV Internal Dim ED PLAX 3.3 cm 1.9 - 3.8 cm LVOT Diameter 2.0 cm Aortic Root Diameter 3.5 cm LA Systolic Diameter LX 3.9 cm 3.0 - 4.0 / 2.7 - 3.8 cm LA Volume 35.0 cm 18 - 58 / 22 - 52 cm Ascending Aorta Diameter 3.1 cm DOPPLER AV Peak Velocity 168.0 cm/s AV Peak Gradient 11.3 mmHg AV Mean Velocity 112.0 cm/s AV Mean Gradient 6.0 mmHg AV Velocity Time Integral 32.3 cm LVOT Peak Velocity 124.0 cm/s LVOT Peak Gradient 6.2 mmHg LVOT Mean Velocity 80.0 cm/s LVOT Mean Gradient 3.0 mmHg LVOT Velocity Time Integral 25.9 cm LVOT Stroke Volume 81.4 cm AV Area Cont Eq vti 2.5 cm AV Area Cont Eq pk 2.3 cm MV Peak Velocity 142.0 cm/s MV Peak Gradient 8.1 mmHg MV Mean Velocity 74.8 cm/s MV Mean Gradient 3.0 mmHg Mitral E Point Velocity 95.4 cm/s Mitral A Point Velocity 137.0 cm/s Mitral E to A Ratio 0.7 MV PHT Velocity 88.6 cm/s MV Deceleration [place] 175.0 cm/s MV Pressure Half Time 151.9 ms MV Area PHT 1.4 cm MV Deceleration Time 180.0 ms TR Peak Velocity 208.0 cm/s TR Peak Gradient 17.3 mmHg Right Atrial Pressure 5.0 mmHg Pulmonary Artery Systolic Pressure 22.3 mmHg Right Ventricular Systolic Pressure 22.3 mmHg PV Peak Velocity 117.0 cm/s PV Peak Gradient 5.5 mmHg PV Mean Velocity 81.8 cm/s PV Mean Gradient 3.0 mmHg PV Velocity Time Integral 23.8 cm LV E' Lateral Velocity 16.6 cm/s Mitral E to LV E' Lateral Ratio 5.7 LV E' Septal Velocity 8.1 cm/s Mitral E to LV E' Septal Ratio 11.8
--- NOTE | 2018-04-01 18:10 | Patient Discharge Instructions ---
Discharge Instructions General Discharge Information You were seen/treated for: Abdominal/Flank Pain Chest Pain/Elevated Troponins Watch for these problems: Incresaing chest pain, tightness, palpitations, shortness of breath Increasing back/abdomina/flank pain and blood in urine Special Instructions: Please follow up with PCP within 1 week of discharge. Please follow up with Cardiology after discharge. Please follow up with Urology 1 week after discharge. Return to ED with worsening chest pain, tightness, shortness of breath, blood in urine, increasing abdominal/flank pain Acute Coronary Syndrome Inclusion Criteria At DC or during hospital stay patient has or had the following: ACS DIAGNOSIS Yes Discharge Core Measures Meds if any: Prescribed or Continued at Discharge CHAYITO/ARB if EF <40% No Aspirin Yes Beta-Zen Yes Statin Yes Meds if any: NOT Prescribed or Continued at Discharge Congestive Heart Failure Inclusion Criteria At DC or during hospital stay patient has or had the following: CHF DIAGNOSIS No Discharge Core Measures Meds if any: Prescribed or Continued at Discharge Meds if any: NOT Prescribed or Continued at Discharge Cerebrovascular accident Inclusion Criteria At DC or during hospital stay patient has or had the following: CVA/TIA Diagnosis No Discharge Core Measures Meds if any: Prescribed or Continued at Discharge Meds if any: NOT Prescribed or Continued at Discharge Venous thromboembolism Inclusion Criteria VTE Diagnosis No VTE Type NONE VTE Confirmed by (Test) NONE Discharge Core Measures - Per Current guidelines, there needs to be overlap - treatment for the first 5 days of Warfarin therapy. - If discharged on Warfarin prior to 5 days of - overlap therapy, the patient will need to be - assessed for post discharge needs including - *Post discharge parental anticoagulation - *Warfarin and/or parental anticoagulation education - *Follow up date to check INR post discharge At least 5 days overlap therapy as Inpatient No Meds if any: Prescribed or Continued at Discharge Note: Overlap Therapy is Warfarin and Anticoagulant Meds if any: NOT Prescribed or Continued at Discharge
[2018-04-01 23:26] VITALS: BP 116/68
[2018-04-02 06:08] VITALS: BP 136/70
--- NOTE | 2018-04-02 07:01 | PN- Housestaff ---
Kerrie Bailey 04/02/18 0701: Subjective Follow-up For: Elevated Troponin/Type 2 CO Left Ureter Stent w/ Mild Hydronephrosis Tele-Events Since Last Visit: NSR, 95, 0.4, 0.20, BBB Subjective: Patient seen and examined at bedside this morning. He was npo for possible stent placement this morning. Patients troponins were significantly elevated and was decided to hold off on the urological procedure today. Patient seen by cardiology, primary care and urology today. Will continue to monitor on telemetry. Patient has complaints of indigestion and fatigue. Otherwise no signficant complaints. Review of Systems Constitutional: Denies: see HPI. Objective Last 24 Hrs of Vital Signs/I&O Vital Signs Date Time Temp Pulse Resp B/P B/P Pulse O2 O2 Flow FiO2 Mean Ox Delivery Rate 04/02 1144 98.6 91 18 136/70 04/02 0608 98.6 91 18 136/70 95 Room Air 04/02 0048 92 116/68 04/01 2326 98.3 92 18 116/68 93 Room Air 04/01 1659 101 122/62 04/01 1604 Room Air 04/01 1600 Room Air 04/01 1503 98.2 100 18 110/70 94 Room Air Intake & Output 04/02 1600 04/02 0800 04/02 0000 Intake Total 525 745 Output Total Balance 525 745 Intake, IV 525 225 Intake, Oral 520 Patient 257 lb Weight Physical Exam General Appearance: Alert, Oriented X3, Cooperative, Mild Distress HEENT: PERRLA, EOMI, Mucous Membr. moist/pink Cardiovascular: Regular Rate, Normal S1, Normal S2 Lungs: Clear to Auscultation, Normal Air Movement Abdomen: Normal Bowel Sounds, Tender to superficial palpation , + CVA tenderness Neurological: Strength at 5/5 X4 Ext, Normal Tone, Reflexes 2+ Extremities: No Clubbing, No Cyanosis, No Edema Vascular: Normal Pulses, Pulses Symmetrical Current Medications: Current Medications Sig/Adarsh Start time Last Medication Dose Route Stop Time Status Admin Acetaminophen 1,000 MG Q6P PRN 04/01 1300 AC 04/02 N/A 1 UNIT IV 1400 Aspirin 81 MG DAILY 04/01 1511 AC 04/02 PO 1143 Atorvastatin Calcium 20 MG 1700 04/01 1700 AC 04/01 PO 1658 Bisacodyl 10 MG ONCE ONE 04/01 1515 DC TN 04/01 1516 Calcium Carbonate 500 MG DAILY NEEDED PRN 04/02 1330 AC 04/02 PO 1333 Dextrose/Sodium 1,000 ML Q13H 04/01 1315 AC 04/02 Chloride IV 0403 Heparin Sodium 25,000 UNIT Q24H 04/02 1130 AC (Porcine) IV Sodium Chloride 500 ML Heparin Sodium 5,000 UNIT Q8 04/01 1538 DC (Porcine) SC Heparin Sodium 5,000 UNIT Q8 04/01 1537 CAN (Porcine) IV Insulin Aspart 0 TIDAC 04/02 1130 AC 04/02 SC 1222 Insulin Aspart 0 TIDAC 04/01 1700 DC SC Insulin Human Regular 0 Q6 04/02 0600 DC 04/02 SC 0705 Metoprolol Tartrate 100 MG BID 04/01 1515 AC 04/02 PO 1144 Morphine Sulfate 2 MG Q4P PRN 04/01 1300 AC IV Nitroglycerin 0.5 GM Q6 PRN 04/01 1315 AC TOP Omeprazole 20 MG DAILY 04/01 1512 AC 04/02 PO 1145 Polyethylene Glycol 17 GM DAILY 04/01 1515 AC 04/02 PO 1144 Senna/Docusate Sodium 1 TAB BID 04/01 2100 AC 04/02 PO 1143 Last 24 Hrs of Lab/Shaka Results Last 24 Hrs of Labs/Mics: Laboratory Tests 04/02/18 1354: Troponin I Pending 04/02/18 0650: Anion Gap 11, Estimated GFR 19 L, BUN/Creatinine Ratio 13.3, Troponin I 2.12 *H , CBC w Diff NO MAN DIFF REQ, RBC 4.11 L, MCV 88.3, MCH 29.4, MCHC 33.2, RDW 13.9, MPV 8.4, Gran % 77.5 H, Lymphocytes % 10.3 L, Monocytes % 11.8 H, Eosinophils % 0.2, Basophils % 0.2, Absolute Granulocytes 6.7 H, Absolute Lymphocytes 0.9 L, Absolute Monocytes 1.0 H, Absolute Eosinophils 0, Absolute Basophils 0 04/01/18 2120: Troponin I 1.60 *H 04/01/18 1758: Anion Gap 14, Estimated GFR 15 L, BUN/Creatinine Ratio 11.5 04/01/18 1600: Troponin I 0.94 *H 04/01/18 1600: Lactic Acid 1.1 Microbiology 04/01 1707 URINE ROUT: Urine Culture - RES Assessment/Plan Assessment: Patient is a 72 year old male with past medical history of diabetes, CAD status post CABG 9 years ago at [facility], hypertension, hyperlipidemia came to [place] ER with complaints of abdominal and chest pain. Patient was to get a stent for hydronephrosis. Elevated serial troponins on admission with peak at 2.12 from 0.38 on admission. Patients case discussed today for stent placement. No intervention at this time due to elevated troponins. Will continue to monitor on tele. PCP: Dr. Martinez Urology: Dr. Pan Problem List: 1. Elevated Troponins/Type 2 CO 2. Left Sided Hydronephrosis PLAN: TYPE 2 CO * Patient demonstrated chest pain during admission; * Cardiology consulted; spoken with patients busher helper Dr. Hudson and Dr. Cheek * Start on IV Heparin today and continue to follow with cardiology recommendations * Troponin trending up: 0.10, 0.38, 0.94, 1.60, 2.12 * ECHO: EF is 55-60% * repeat troponin q8 until down trend; continue metoprolol + aspirin * Hold ARB until renal function improved LEFT HYDRONEPHROSIS * Endocrinology consultation: glucose in IV in form of D5 1/2 NS at 75 cc/hr; Novolog TID pre meals; low dose novolog sliding scale * Creatinine trending down from yesterday (3.3 from 4.0) continue to monitor Code Status: Full Code DVT PPx: Heparin IV Diet: REgular Problem List: 1. Kidney stone on left side 2. Renal colic 3. Chest pain Pain Ratin Pain Location: Midsternum Pain Goal: Pain 4 or less Pain Plan: As per pain pathway Tomorrow's Labs & Rationales: CBC BEP DVT/Prophylaxis: pharmacological Leia Garcia 04/02/18 1350: Attending MD Review Statement Attending Statement Attending MD Statement: examined this patient, discuss w/resident/PA/TREASURY MANAGER, agreed w/resident/PA/TREASURY MANAGER, discussed with family, reviewed EMR data (avail), discussed with nursing, discussed with case mgmt Attending Assessment/Plan: Elevated trop/ Type 2 CO likely - pt had some fluttering sensation in the chest this am. will start pt on heparin drip and will f/u on cardiology recommendations. d/w pt and pts the care plan. Trop trending up and we will recheck them Lt ureter stent with mild hydronephrosis - urology following . holding off on stent placement due to elveated trop and cardiac issue. d/w pt and pts at bedside the care plan.
--- NOTE | 2018-04-02 07:06 | Event Note ---
Event Note Event Note: S: Lamont Richards 72 YO male who in the evening prior complained of abdominal pain. This morning he complained of unspecified chest discomfort, which he relates to heartburn. Patient states the chest discomfort lasted less than a minute and is not currently experiencing the chest pain. Patient rated the pain as 4 out of 10 and non-radiating. Patient states he was nauseous prior in the night when going to bathroom but is not currently nauseous. Patient denies chest tightness and shortness of breath. O: EKG unchanged from prior (RBBB, ST depressions from prior) Latest troponin 1.6 (2100) Vitals stable A: Follow troponin and EKG. Reassess if any subsequent chest discomfort. P: Following troponin to trend down. Dr. Cheek, Cardiology, notified of patient progress.
[2018-04-02 08:24] LABS: ABSOLUTE BASOPHIL COUNT 0 /CUMM (0.0-0.2); ABSOLUTE EOSINOPHIL COUNT 0 /CUMM (0.0-0.7); ABSOLUTE GRANULOCYTE CT 6.7 /CUMM (1.4-6.5); ABSOLUTE LYMPH COUNT 0.9 /CUMM (1.2-3.4); BASOPHIL % 0.2 % (0.0-2.0); EOSINOPHIL % 0.2 % (0-5); GRANULOCYTE % 77.5 % (42.2-75.2); HEMATOCRIT 36.3 % (42-52); MEAN CORPUSCULAR HGB 29.4 PG (27.0-31.0); MEAN CORPUSCULAR HGB CONC 33.2 G/DL (33.0-37.0); MEAN CORPUSCULAR VOLUME 88.3 FL (80.0-94.0); MEAN PLATELET VOLUME 8.4 FL (7.4-10.4); PLATELET COUNT 147 /CUMM (130-400); RBC DISTRIBUTION WIDTH 13.9 % (11.5-14.5); RED BLOOD CELL CT 4.11 /CUMM (4.70-6.10); WHITE BLOOD CELL COUNT 8.6 /CUMM (4.8-10.8)
--- NOTE | 2018-04-02 09:32 | PN- Cardiology ---
Subjective Subjective: Patient reports intermittent heart burn and left flank pain. Currently no chest pain. Review of Systems Constitutional: Reports: weakness. Denies: no symptoms, see HPI, chills, diaphoresis, fever, malaise, unexplained weight loss. EENTM: Denies: no symptoms, see HPI, blurred vision, double vision, visual changes, eye pain, eye drainage, eye tearing, icterus, ear discharge, ear pain, ear redness, hearing changes, nasal congestion, epistaxis, nasal pain, throat pain, throat swelling, mouth pain, tooth pain. Cardiovascular: Denies: no symptoms (intermittent heart burn), see HPI, chest pain, edema, orthopena, palpitations, peripheral edema, syncope. Respiratory: Denies: no symptoms, see HPI, cough, hemoptysis, orthopnea, short of breath, sputum production, stridor, wheezing. Gastrointestinal: Denies: no symptoms (left flank pain), see HPI, abdominal pain, bloating, constipation, diarrhea, distention, bowel incontinence, melena, nausea, bloody stool, changes in stool, vomiting, steatorrhea. Genitourinary: Denies: no symptoms, see HPI, discharge, dysuria, frequency, hematuria, hesitation, nocturia, pain, urgency. Musculoskeletal: Denies: no symptoms, see HPI, back pain, gout, joint pain, joint swelling, muscle pain, muscle stiffness, neck pain. Skin: Denies: no symptoms, see HPI, cysts, change in skin color, change in hair/nails, dryness, erythema, jaundice, lesions, lymphangitis, lumps, moles, rash. Neurological/Psychological: Denies: no symptoms, see HPI, anxiety, ataxia, cognitive dysfunction, confusion, depressed, dementia, emotional problems, headache, numbness, paresthesia, pre- existing deficit, petit mal seizures, tingling, tremors, tonic-clonic seizures, unable to move lower ext, unable to move upper ext, weakness, other. Hematologic/Endocrine: Denies: no symptoms, see HPI, bruising, bleeding, polyuria, polydipsia, other. Immunologic/Allergic: Denies: no symptoms, see HPI, splenectomy, HIV/AIDS, lymphadenopathy, other. Objective Vital Signs and I&Os Vital Signs Date Time Temp Pulse Resp B/P B/P Pulse O2 O2 Flow FiO2 Mean Ox Delivery Rate 04/02 0608 98.6 91 18 136/70 95 Room Air 04/02 0048 92 116/68 / 2326 98.3 92 18 116/68 93 Room Air 04/01 1659 101 122/62 04/01 1604 Room Air 04/01 1600 Room Air 04/01 1503 98.2 100 18 110/70 94 Room Air 04/01 1302 99.3 107 16 112/58 98 Room Air 04/01 0937 100 14 152/74 96 Room Air Intake & Output 04/02 1600 04/02 0800 04/02 0000 04/01 1600 04/01 0800 04/01 0000 Intake Total 525 322 911 2848 Output Total Balance 525 503 166 8950 Intake, IV 674 709 2358 Intake, Oral 120 400 Patient 257 lb 257 lb 257 lb Weight Physical Exam: HEENT-PERRLA Neck-JVP normal, no bruit Lungs-clear bilaterally Heart-S1S2 regular, no murmur +tenderness on palpation over left mid sternal area Abdomen-soft, not tender, not distended, +left flank pain Extr-trace bilateral edema, 2+ pulses, no cyanosis Neuro-non focal, AAOx3 Skin-no rash Current Medications: Current Medications Sig/Adarsh Start time Last Medication Dose Route Stop Time Status Admin Acetaminophen 0 .STK-MED ONE 04/01 1312 DC IV Acetaminophen 1,000 MG Q6P PRN 04/01 1300 AC 04/02 N/A 1 UNIT IV 0757 Aspirin 81 MG DAILY 04/01 1511 AC 04/01 PO 1659 Atorvastatin Calcium 20 MG 1700 04/01 1700 AC 04/01 PO 1658 Bisacodyl 10 MG ONCE ONE 04/01 1515 DC NC 04/01 1516 Dextrose/Sodium 1,000 ML Q13H 04/01 1315 AC 04/02 Chloride IV 0403 Heparin Sodium 5,000 UNIT Q8 04/01 1538 AC (Porcine) SC Heparin Sodium 5,000 UNIT Q8 04/01 1537 CAN (Porcine) IV Insulin Aspart 0 TIDAC 04/01 1700 DC SC Insulin Human Regular 0 Q6 04/02 0600 AC 04/02 SC 0705 Metoprolol Tartrate 100 MG BID 04/01 1515 AC 04/02 PO 0048 Morphine Sulfate 2 MG Q4P PRN 04/01 1300 AC IV Nitroglycerin 0.5 GM Q6 PRN 04/01 1315 AC TOP Omeprazole 20 MG DAILY 04/01 1512 AC 04/01 PO 1659 Polyethylene Glycol 17 GM DAILY 04/01 1515 AC 04/01 PO 1700 Senna/Docusate Sodium 1 TAB BID 04/01 2100 04/02 PO 0048 Results Last 48 Hrs of Labs/Mics: Laboratory Tests 04/02/18 0650: Anion Gap 11, Estimated GFR 19 L, BUN/Creatinine Ratio 13.3, Troponin I 2.12 *H , CBC w Diff NO MAN DIFF REQ, RBC 4.11 L, MCV 88.3, MCH 29.4, MCHC 33.2, RDW 13.9, MPV 8.4, Gran % 77.5 H, Lymphocytes % 10.3 L, Monocytes % 11.8 H, Eosinophils % 0.2, Basophils % 0.2, Absolute Granulocytes 6.7 H, Absolute Lymphocytes 0.9 L, Absolute Monocytes 1.0 H, Absolute Eosinophils 0, Absolute Basophils 0 04/01/18 2120: Troponin I 1.60 *H 04/01/18 1758: Anion Gap 14, Estimated GFR 15 L, BUN/Creatinine Ratio 11.5 04/01/18 1600: Troponin I 0.94 *H 04/01/18 1600: Lactic Acid 1.1 04/01/18 0926: Troponin I 0.38 *H 04/01/18 0900: Urinalysis LIGHT H, Urine Color YEL, Urine Clarity HAZY H, Urine pH 6.0, Ur Specific Davy 1.015, Urine Protein TRACE H, Urine Ketones NEG, Urine Nitrite NEG, Urine Bilirubin NEG, Urine Urobilinogen 0.2, Ur Leukocyte Esterase MOD H, Ur Microscopic SEDIMENT EXAMINED, Urine RBC 15-25 H, Urine WBC 15-25 H, Ur Epithelial Cells MOD H, Urine Bacteria FEW H, Urine Mucus FEW, Urine Hemoglobin LARGE H, Urine Glucose NEG 04/01/18 0609: Anion Gap 14, Estimated GFR 18 L, BUN/Creatinine Ratio 11.5, Glucose 156 H, Calcium 8.6, Total Bilirubin 0.6, AST 20, ALT 29, Alkaline Phosphatase 64, Troponin I 0.10, Total Protein 6.1 L, Albumin 3.1 L, Globulin 3.0, Albumin/ Globulin Ratio 1.0 L, CBC w Diff NO MAN DIFF REQ, RBC 4.56 L, MCV 89.0, MCH 29.2, MCHC 32.8 L, RDW 13.9, MPV 7.9, Gran % 82.8 H, Lymphocytes % 6.9 L, Monocytes % 9.0, Eosinophils % 0, Basophils % 1.3, Absolute Granulocytes 9.4 H, Absolute Lymphocytes 0.8 L, Absolute Monocytes 1.0 H, Absolute Eosinophils 0, Absolute Basophils 0.1 Recent Imaging Studies: CXR-no acute disease Assessment/Plan Assessment/Plan 72 year old male with known CAD, CABG, HTN, DM, RBBB admitted with acute renal failure secondary to left hydronephrosis secondary to ureteral stone. He is still uncomfortable with left flank pain. He reports intermittent heart burn. Troponin rising, no new ekg changes c/w NSTEMI. I had a long discussion with patient, and several times with Dr. Fernandez. Although ureteral stent is not a major procedure (5-10 min with no blood loss), I feel we should wait until he is stable from cardiac standpoint with downtrending troponin. Fortunately creatinine improved today. Plan: echo today repeat troponin every 8 hours until down trending continue metoprolol, aspirin hold ARB until renal function improved Hopefully ureteral stent can be placed tomorrow. Once renal function improves, he will be transferred for cardiac catheterization Hold on anticoagulation to avoid hematuria. If he develops recurrent chest pain, we may start low dose iv heparin without bolus. More than 35 minutes spent with the patient and coordinating care including review of medical records. Continue telemetry? Yes
--- NOTE | 2018-04-02 12:52 | Cons- Endocrinology ---
General Information and HPI Consulting Request Date of Consult: 04/02/18 Requested By: medical team Reason for Consult: uncontrolled diabetes Source of Information: patient, family, old records Exam Limitations: no limitations History of Present Illness: This 72-year-old male came to the emergency room because of abdominal pain. On his first visit to the emergency room he was found to have a kidney stone in the distal left ureter which measured about 6 mm in size. There was mild left hydronephrosis. The patient was initially sent home from the emergency room with pain medication. However the pain became worse and he returned. His initial creatinine was 1.8 but on return to the emergency room his creatinine had gone to 4.0. He did have some nausea and vomiting at home. This patient has a history of type 2 diabetes mellitus associated with morbid obesity. He also has coronary artery and had coronary artery bypass surgery years ago. He has a history of hypertension and hyperlipidemia. The patient developed some chest discomfort after his first visit to the emergency room and has been found to have a increased troponin. The patient's troponin kirk from 0.38 yesterday at 9 AM to 1.6 last night at 9: 20 PM. This morning the troponin came back at 2.12. The patient is presently on D5 half-normal saline and his creatinine which was 4.0 yesterday has fallen to 3.3 today. The patient is on regular insulin coverage every 6 hours. The patient's blood sugars have been 172 at 6 AM and now 172 again at noontime. Allergies/Medications Allergies: Coded Allergies: NO KNOWN ALLERGIES (01/04/16) Home Med List: Alprazolam 0.5 MG TABLET 1 TAB PO BIDP PRN ANXIETY (Reported) Aspirin (Aspirin*) 81 MG TAB.CHEW 1 TAB PO DAILY HEART HEALTH (Reported) Calcium Polycarbophil (Fiber Tabs) 625 MG TABLET 1 TAB PO DAILY SUPPLEMENT ( Reported) Cholecalciferol (Vitamin D3) (Vitamin D) 1,000 UNIT TABLET 1 TAB PO DAILY VITAMIN SUPPORT (Reported) Exenatide Microspheres (Bydureon Bcise) 2 MG/0.85 ML AUTO.INJCT 2 MG SC QSUN DM (Reported) Glimepiride 2 MG TABLET 1 TAB PO DAILY DIABETES (Reported) Losartan Potassium 50 MG TABLET 1 TAB PO DAILY HEART (Reported) Metformin HCl (Metformin HCl ER) 500 MG [id number] 1 TAB PO DAILY DIABETES ( Reported) Metoprolol Tartrate 100 MG TABLET 1 TAB PO BID HEART (Reported) Multivit-Min/FA/Lycopen/Lutein (Centrum Silver Tablet) 0.4 MG-300 MCG-250 MCG TABLET 1 TAB PO DAILY VITAMIN SUPPORT (Reported) [place]-3S/Dha/Epa/Fish Oil (Fish Oil 1,200 MG Softgel) 360-1,200MG CAPSULE 1 CAP PO DAILY SUPPLEMENT (Reported) Omeprazole 20 MG CAPSULE.DR 1 CAP PO DAILY GI (Reported) Phentermine/Topiramate (Qsymia 11.25 MG-69 MG Capsule) 11.25 MG-69 MG CPMP.24HR 1 CAP PO DAILY WEIGHT LOSS (Reported) Pioglitazone HCl 30 MG TABLET 1 TAB PO DAILY DIABETES (Reported) Polyethylene Glycol 3350 (Miralax) 17 GRAM/DOSE POWDER 17 GM PO DAILY PRN CONSTIPATION mix with water, juice, soda, coffee or tea Simvastatin (Simvastatin*) 40 MG TABLET 1 TAB PO QPM CHOLESTEROL (Reported) Tramadol HCl/Acetaminophen (Ultracet Tablet) 37.5 MG-325 MG TABLET 1-2 TAB PO Q6P PAIN Review of Systems Review of Systems Constitutional: Denies: chills. Cardiovascular: Denies: chest pain. Respiratory: Denies: cough, short of breath. GI: Reports: abdominal pain, nausea. Skin: Reports: no symptoms. Past History Travel History Traveled to [place] past 21 day No Medical History Blood Transfusion Hx: No Neurological: NONE EENT: NONE Cardiovascular: hypertension, hyperlipidemia Respiratory: asthma Gastrointestinal: diverticulitis, PART OF COLON REMOVED Hepatic: NONE Renal: KIDNEY STONES Musculoskeletal: NONE Psychiatric: NONE Endocrine: diabetes Blood Disorders: NONE Cancer(s): NONE Surgical History Surgical History: COLON RESECTION Family History Relations & Conditions If Any: Relation not specified for: *No pertinent family history Psychosocial History Where Do You Live? Home Who Do You Live With? spouse Services at Home: None Primary Language: Nauruan Smoking Status: Never Smoked ETOH Use: occasional use Illicit Drug Use: denies illicit drug use Functional Ability ADLs Independent: dressing, eating, toileting, bathing. Ambulation: independent IADLs Independent: shopping, housework, finances, food prep, telephone, transportation , medication admin. ECHO Results (as available) EF% 65 Exam & Diagnostic Data Last 24 Hrs of Vital Signs/I&O Vital Signs Date Time Temp Pulse Resp B/P B/P Pulse O2 O2 Flow FiO2 Mean Ox Delivery Rate 04/02 1144 98.6 91 18 136/70 /16 0608 98.6 91 18 136/70 95 Room Air / 0048 92 116/68 / 2326 98.3 92 18 116/68 93 Room Air / 1659 101 122/62 07/15 1604 Room Air / 1600 Room Air 04/01 1503 98.2 100 18 110/70 94 Room Air 04/01 1302 99.3 107 16 112/58 98 Room Air Intake & Output 04/02 1600 16 0800 04/02 0000 Intake Total 525 745 Output Total Balance 525 745 Intake, IV 525 225 Intake, Oral 520 Patient 257 lb Weight Vital Signs Date Time Temp Pulse Resp B/P B/P Pulse O2 O2 Flow FiO2 Mean Ox Delivery Rate 04/02 1144 98.6 91 18 136/70 /16 0608 98.6 91 18 136/70 95 Room Air 04/02 0048 92 116/68 04/01 2326 98.3 92 18 116/68 93 Room Air 04/01 1659 101 122/62 15 1604 Room Air 04/01 1600 Room Air 04/01 1503 98.2 100 18 110/70 94 Room Air 04/01 1302 99.3 107 16 112/58 98 Room Air Intake & Output 04/02 1600 16 0800 04/02 0000 Intake Total 525 745 Output Total Balance 525 745 Intake, IV 525 225 Intake, Oral 520 Patient 257 lb Weight Physical Exam General Appearance: alert, lethargic Head: normal appearance Neck: normal inspection Respiratory: normal breath sounds Cardiovascular: regular rate/rhythm Gastrointestinal: normal bowel sounds, soft Extremities: normal inspection Skin: intact Labs/Shaka Results: Laboratory Tests 04/02 04/01 04/01 0650 2120 1758 Chemistry Sodium (137 - 145 mmol/L) 139 141 Potassium (3.5 - 5.1 mmol/L) 4.2 4.5 Chloride (98 - 107 mmol/L) 108 H 109 H Carbon Dioxide (22 - 30 mmol/L) 20 L 18 L Anion Gap (5 - 16) 11 14 BUN (9 - 20 mg/dL) 44 H 46 H Creatinine (0.7 - 1.2 mg/dL) 3.3 H 4.0 H Estimated GFR (>60 ml/min) 19 L 15 L BUN/Creatinine Ratio (7 - 25 %) 13.3 11.5 Troponin I (<0.11 ng/ml) 2.12 *H 1.60 *H Hematology CBC w Diff NO MAN DIFF REQ WBC (4.8 - 10.8 /CUMM) 8.6 RBC (4.70 - 6.10 /CUMM) 4.11 L Hgb (14.0 - 18.0 G/DL) 12.1 L Hct (42 - 52 %) 36.3 L MCV (80.0 - 94.0 FL) 88.3 MCH (27.0 - 31.0 PG) 29.4 MCHC (33.0 - 37.0 G/DL) 33.2 RDW (11.5 - 14.5 %) 13.9 Plt Count (130 - 400 /CUMM) 147 MPV (7.4 - 10.4 FL) 8.4 Gran % (42.2 - 75.2 %) 77.5 H Lymphocytes % (20.5 - 51.1 %) 10.3 L Monocytes % (1.7 - 9.3 %) 11.8 H Eosinophils % (0 - 5 %) 0.2 Basophils % (0.0 - 2.0 %) 0.2 Absolute Granulocytes (1.4 - 6.5 /CUMM) 6.7 H Absolute Lymphocytes (1.2 - 3.4 /CUMM) 0.9 L Absolute Monocytes (0.10 - 0.60 /CUMM) 1.0 H Absolute Eosinophils (0.0 - 0.7 /CUMM) 0 Absolute Basophils (0.0 - 0.2 /CUMM) 0 04/01 04/01 04/01 1600 1600 0926 Chemistry Lactic Acid (0.7 - 2.1 mmol/L) 1.1 Troponin I (<0.11 ng/ml) 0.94 *H 0.38 *H 04/01 04/01 0900 0609 Chemistry Sodium (137 - 145 mmol/L) 141 Potassium (3.5 - 5.1 mmol/L) 4.6 Chloride (98 - 107 mmol/L) 110 H Carbon Dioxide (22 - 30 mmol/L) 17 L Anion Gap (5 - 16) 14 BUN (9 - 20 mg/dL) 39 H Creatinine (0.7 - 1.2 mg/dL) 3.4 H Estimated GFR (>60 ml/min) 18 L BUN/Creatinine Ratio (7 - 25 %) 11.5 Glucose (65 - 99 mg/dL) 156 H Calcium (8.4 - 10.2 mg/dL) 8.6 Total Bilirubin (0.2 - 1.3 mg/dL) 0.6 AST (17 - 59 U/L) 20 ALT (21 - 72 U/L) 29 Alkaline Phosphatase (< 127 U/L) 64 Troponin I (<0.11 ng/ml) 0.10 Total Protein (6.3 - 8.2 g/dL) 6.1 L Albumin (3.5 - 5.0 g/dL) 3.1 L Globulin (1.9 - 4.2 gm/dL) 3.0 Albumin/Globulin Ratio (1.1 - 2.2 %) 1.0 L Hematology CBC w Diff NO MAN DIFF REQ WBC (4.8 - 10.8 /CUMM) 11.4 H RBC (4.70 - 6.10 /CUMM) 4.56 L Hgb (14.0 - 18.0 G/DL) 13.3 L Hct (42 - 52 %) 40.6 L MCV (80.0 - 94.0 FL) 89.0 MCH (27.0 - 31.0 PG) 29.2 MCHC (33.0 - 37.0 G/DL) 32.8 L RDW (11.5 - 14.5 %) 13.9 Plt Count (130 - 400 /CUMM) 148 MPV (7.4 - 10.4 FL) 7.9 Gran % (42.2 - 75.2 %) 82.8 H Lymphocytes % (20.5 - 51.1 %) 6.9 L Monocytes % (1.7 - 9.3 %) 9.0 Eosinophils % (0 - 5 %) 0 Basophils % (0.0 - 2.0 %) 1.3 Absolute Granulocytes (1.4 - 6.5 /CUMM) 9.4 H Absolute Lymphocytes (1.2 - 3.4 /CUMM) 0.8 L Absolute Monocytes (0.10 - 0.60 /CUMM) 1.0 H Absolute Eosinophils (0.0 - 0.7 /CUMM) 0 Absolute Basophils (0.0 - 0.2 /CUMM) 0.1 Urines Urinalysis LIGHT H Urine Color (YEL,AMB,STR) YEL Urine Clarity (CLEAR) HAZY H Urine pH (5.0 - 8.0) 6.0 Ur Specific [place] (1.001 - 1.035) 1.015 Urine Protein (NEG,<30 MG/DL) TRACE H Urine Ketones (NEG) NEG Urine Nitrite (NEG) NEG Urine Bilirubin (NEG) NEG Urine Urobilinogen (0.1 - 1.0 EU/dl) 0.2 Ur Leukocyte Esterase (NEG) MOD H Ur Microscopic SEDIMENT EXAMINED Urine RBC (0 - 5 /HPF) 15-25 H Urine WBC (0 - 2 /HPF) 15-25 H Ur Epithelial Cells (NONE,FEW) MOD H Urine Bacteria (NEG/NONE) FEW H Urine Mucus (FEW,NONE) FEW Urine Hemoglobin (NEG) LARGE H Urine Glucose (N MG/DL) NEG Assessment/Plan Assessment/Plan The patient's blood sugars in reasonable control. The patient has now been started on a diet. I would continue to keep glucose in the IV in the form of D5 half-normal saline at 75 cc/h. in addition to whatever fluids he is taking by mouth. If he is able to tolerate diet we can begin NovoLog coverage 3 times a day before meals. I agree with the low-dose NovoLog sliding scale that is present written. His creatinine is beginning to improve. I feel he is still dehydrated. He would benefit from additional hydration with IV fluids. I would recheck his BUN /creatinine electrolytes later on today to show if there is continued improvement. The patient's troponin has continued to rise. When seen by Dr. Hudson his review assistant earlier today the most recent troponin was not yet available. Since it is continuing to rise I feel that we need to give this additional information to Dr. Hudson and that his procedures should probably be canceled for today. He probably needs to be started on IV heparin. I feel his renal function will probably improve with further hydration. There is a chance that he could pass the stone spontaneously. The patient will need further evaluation of his heart in view of his increased troponin. He would be at high risk of contrast-induced renal failure if he were to have cardiac catheterization at this time. However if his creatinine does improve a cardiac catheterization could be safely done. Consult Acknowledgment - Thank you for your consult request.
[2018-04-02 15:18] VITALS: BP 130/70
[2018-04-02 22:01] VITALS: BP 140/64
[2018-04-02 22:54] LABS: PTT 37 SEC (25-37)
--- NOTE | 2018-04-03 07:01 | PN- Housestaff ---
Kerrie Bailey 04/03/18 0700: Subjective Follow-up For: Left Ureteral Hydronephrosis/Nephrolithiasis NSTEMI/Elevated Troponins Tele-Events Since Last Visit: NSR, 80, 0.12, 0.20 Subjective: Patient seen and examined at bedside this morning. Patient anxious for procedure today. Patient claims he has indigestion and abdominal pain. Patient has not gone to the bathroom in over 1 week. However patient is able to get up out of bed to go to the bathroom. Patient denies any nausea, vomiting, palpitations, shortness of breath. Patient seen with Dr. Hogue at bedside. We will follow-up troponin prior to procedure. Review of Systems Constitutional: Denies: see HPI. Objective Last 24 Hrs of Vital Signs/I&O Vital Signs Date Time Temp Pulse Resp B/P B/P Pulse O2 O2 Flow FiO2 Mean Ox Delivery Rate 04/03 1413 98.6 79 18 118/78 98 Room Air 04/03 0825 68 18 130/70 04/03 0702 99.0 68 18 130/70 96 Room Air 04/02 2201 98.5 81 20 140/64 96 Room Air 04/02 2009 76 122/64 Intake & Output 04/03 1600 04/03 0800 04/03 0000 Intake Total 710 1497.6 170 Output Total 200 Balance 510 1497.6 170 Intake, IV 350 1497.6 170 Intake, Oral 360 Output, Urine 200 Physical Exam General Appearance: Alert, Oriented X3, Cooperative Cardiovascular: Regular Rate, Normal S1, Normal S2 Abdomen: Pain on deep palpation, CVA Tenderness Neurological: Strength at 5/5 X4 Ext, Cranial Nerves 3-12 NL, Reflexes 2+ Extremities: No Clubbing, No Cyanosis, No Edema Vascular: Normal Pulses, Pulses Symmetrical Current Medications: Current Medications Sig/Adarsh Start time Last Medication Dose Route Stop Time Status Admin Acetaminophen 650 MG ONCE ONE 04/03 0030 DC 04/03 PO 04/03 0031 0112 Acetaminophen 1,000 MG Q6P PRN 04/01 1300 AC 04/03 N/A 1 UNIT IV 0833 Aspirin 81 MG DAILY 04/01 1511 AC 04/03 PO 0826 Atorvastatin Calcium 20 MG 1700 04/01 1700 AC 04/02 PO 1638 Calcium Carbonate 500 MG DAILY NEEDED PRN 04/02 1330 AC 04/02 PO 1333 Dextrose/Sodium 1,000 ML Q13H 04/01 1315 DC 04/02 Chloride IV 1940 Heparin Sodium 5,000 UNIT Q8 04/03 2200 AC (Porcine) SC Heparin Sodium 6,883.8 UNIT 0000 04/03 0000 DC 04/03 (Porcine) IV 04/03 0001 0000 Heparin Sodium 5,000 UNIT .STK-MED ONE 04/02 2351 DC (Porcine) IV 04/02 2352 Heparin Sodium 25,000 UNIT Q24H 04/02 1130 DC 04/02 (Porcine) IV 1620 Sodium Chloride 500 ML Insulin Aspart 0 TIDAC 04/03 1315 AC SC Insulin Aspart 0 TIDAC 04/02 1130 DC 04/02 SC 1638 Insulin Human Regular 0 Q6 04/03 0600 DC SC Insulin Human Regular 0 Q6 04/03 0000 DC 04/03 SC 0619 Metoprolol Tartrate 100 MG BID 04/01 1515 AC 04/03 PO 0825 Morphine Sulfate 2 MG Q4P PRN 04/01 1300 AC 04/03 IV 0628 Nitroglycerin 0.5 GM Q6 PRN 04/01 1315 AC TOP Omeprazole 20 MG DAILY 04/01 1512 AC 04/03 PO 0825 Polyethylene Glycol 17 GM ONCE ONE 04/03 1245 DC PO 04/03 1246 Polyethylene Glycol 17 GM DAILY 04/01 1515 AC 04/02 PO 1144 Senna/Docusate Sodium 1 TAB BID 04/01 2100 AC 04/03 PO 0825 Last 24 Hrs of Lab/Shaka Results Last 24 Hrs of Labs/Mics: Laboratory Tests 04/03/18 0622: Anion Gap 11, Estimated GFR 30 L, BUN/Creatinine Ratio 15.0, Troponin I 1.62 *H , APTT 74 H, CBC w Diff NO MAN DIFF REQ, RBC 4.01 L, MCV 89.1, MCH 29.0, MCHC 32.5 L, RDW 13.4, MPV 8.4, Gran % 75.9 H, Lymphocytes % 13.8 L, Monocytes % 9.7 H, Eosinophils % 0.4, Basophils % 0.2, Absolute Granulocytes 5.9, Absolute Lymphocytes 1.1 L, Absolute Monocytes 0.8 H, Absolute Eosinophils 0, Absolute Basophils 0 04/02/18 2225: APTT 37 04/02/18 1709: Troponin I Cancelled Assessment/Plan Assessment: Patient is a 72-year-old male with known coronary artery disease, CABG 9 [facility] at [facility], hypertension, diabetes mellitus, right bundle branch block admitted with acute renal failure secondary to left hydronephrosis/ nephrolithiasis. Patient continued to have left flank pain. He has had intermittent chest pain that may also resemble indigestion overnight. Troponin now down trending most recent troponin 1.62 from 1.88. Patient seen by his insulation cutter and former Dr. Hogue this morning. Classification Officer cleared patient for neurological procedure this morning. Patient to go to the OR at 10:30 AM under the supervision of Dr. Fernandez. Problem list: 1. Elevated troponin/NSTEMI 2. Left-sided hydronephrosis/nephrolithiasis Plan: Elevated troponins * Patient's IV heparin discontinued 3 hours prior to urological procedure * Repeat troponin 1.62 down from 1.88; cleared from cardiology perspective for urological procedure * Patient's renal function significantly improved creatinine is down from 3.3 to 2.2; will hold nephrotoxic agents for now we will * Will continue to follow up with patient after operation Left hydronephrosis/nephrolithiasis * Continue to monitor creatinine; significantly improved from yesterday * Patient for urological procedure today under the supervision of Dr. Fernandez * Continue to follow recommendations of endocrinology Code Status: Full Code DVT PPx: Heparin IV Diet: Regular Problem List: 1. Kidney stone on left side 2. Abdominal pain 3. Chest pain Pain Ratin Pain Location: midsternum/flank pain Pain Goal: Pain 4 or less Pain Plan: as per pain pathway Tomorrow's Labs & Rationales: CBC BEP Leia Garcia 04/03/18 1329: Attending MD Review Statement Attending Statement Attending MD Statement: examined this patient, discuss w/resident/PA/DISH NETWORK INSTALLER, agreed w/resident/PA/DISH NETWORK INSTALLER, discussed with family, reviewed EMR data (avail), discussed with nursing, discussed with case mgmt Attending Assessment/Plan: Elevated trop/ Type 2 NC likely - pt had some fluttering sensation in the chest yesterday and was started on heparin drip . Trop trending down this am and we have stopped the heparin drip for urology procedure. Lt ureter stone with mild hydronephrosis - urology following . going for stent placement today. will see how he does. TREVOR- cr down to 2.2 from 3.3 yesterday. recheck in am.
[2018-04-03 07:02] VITALS: BP 130/70
--- NOTE | 2018-04-03 07:41 | PN- Cardiology ---
Subjective Subjective: Patient still reports left flank pain. Only one episode of chest burning last night for 10 minutes. Objective Vital Signs and I&Os Vital Signs Date Time Temp Pulse Resp B/P B/P Pulse O2 O2 Flow FiO2 Mean Ox Delivery Rate 04/03 0702 99.0 68 18 130/70 96 Room Air 04/02 2201 98.5 81 20 140/64 96 Room Air 04/02 2009 76 122/64 04/02 1518 98.0 89 20 130/70 94 04/02 1144 98.6 91 18 136/70 Intake & Output 04/03 0800 04/03 0000 04/02 1600 04/02 0800 04/02 0000 04/01 1600 Intake Total 1497.6 170 860 525 345 400 Output Total Balance 1497.6 170 860 525 345 400 Intake, IV 1497.6 170 525 225 Intake, Oral 860 120 400 Patient 257 lb 257 lb Weight Current Medications: Current Medications Sig/Adarsh Start time Last Medication Dose Route Stop Time Status Admin Acetaminophen 650 MG ONCE ONE 04/03 0030 DC 04/03 PO 04/03 0031 0112 Acetaminophen 1,000 MG .STK-MED ONE 04/02 1347 DC IV 04/02 1348 Acetaminophen 1,000 MG .STK-MED ONE 04/02 0755 DC IV 04/02 0756 Acetaminophen 1,000 MG Q6P PRN 04/01 1300 AC 04/02 N/A 1 UNIT IV 1400 Aspirin 81 MG DAILY 04/01 1511 AC 04/02 PO 1143 Atorvastatin Calcium 20 MG 1700 04/01 1700 AC 04/02 PO 1638 Calcium Carbonate 500 MG DAILY NEEDED PRN 04/02 1330 AC 04/02 PO 1333 Dextrose/Sodium 1,000 ML Q13H 04/01 1315 AC 04/02 Chloride IV 1940 Heparin Sodium 6,883.8 UNIT 0000 04/03 0000 DC 04/03 (Porcine) IV 04/03 0001 0000 Heparin Sodium 25,000 UNIT Q24H 04/02 1130 AC 04/02 (Porcine) IV 1620 Sodium Chloride 500 ML Heparin Sodium 5,000 UNIT Q8 04/01 1538 DC (Porcine) SC Insulin Aspart 0 TIDAC 04/02 1130 DC 04/02 SC 1638 Insulin Human Regular 0 Q6 04/03 0600 DC SC Insulin Human Regular 0 Q6 04/03 0000 AC 04/03 SC 0619 Insulin Human Regular 0 Q6 04/02 0600 [place] 04/02 ID 0705 Lidocaine 1 PAT ONCE ONE 04/02 1600 [place] 04/02 [facility] 04/02 1601 1638 Metoprolol Tartrate 100 MG BID 04/01 1515 04/02 PO 2009 Morphine Sulfate 2 MG Q4P PRN 04/01 1300 04/03 IV 0628 Nitroglycerin 0.5 GM Q6 PRN 04/01 1315 [facility] Omeprazole 20 MG DAILY 04/01 1512 04/02 PO 1145 Polyethylene Glycol 17 GM DAILY 04/01 1515 04/02 PO 1144 Senna/Docusate Sodium 1 TAB BID 04/01 2100 04/02 PO 2008 Results Last 48 Hrs of Labs/Mics: Laboratory Tests 04/03/18 0622: Sodium Pending, Potassium Pending, Chloride Pending, Carbon Dioxide Pending, Anion Gap Pending, BUN Pending, Creatinine Pending, BUN/Creatinine Ratio Pending , Troponin I Pending, APTT Pending, CBC w Diff Pending, WBC Pending, RBC Pending , Hgb Pending, Hct Pending, MCV Pending, MCH Pending, MCHC Pending, RDW Pending, Plt Count Pending, MPV Pending 04/02/18 2225: APTT 37 04/02/18 1709: Troponin I Cancelled 04/02/18 1354: Troponin I 1.88 *H 04/02/18 0650: Anion Gap 11, Estimated GFR 19 L, BUN/Creatinine Ratio 13.3, Troponin I 2.12 *H , CBC w Diff NO MAN DIFF REQ, RBC 4.11 L, MCV 88.3, MCH 29.4, MCHC 33.2, RDW 13.9, MPV 8.4, Gran % 77.5 H, Lymphocytes % 10.3 L, Monocytes % 11.8 H, Eosinophils % 0.2, Basophils % 0.2, Absolute Granulocytes 6.7 H, Absolute Lymphocytes 0.9 L, Absolute Monocytes 1.0 H, Absolute Eosinophils 0, Absolute Basophils 0 04/01/18 2120: Troponin I 1.60 *H 04/01/18 1758: Anion Gap 14, Estimated GFR 15 L, BUN/Creatinine Ratio 11.5 04/01/18 1600: Troponin I 0.94 *H 04/01/18 1600: Lactic Acid 1.1 04/01/18 0926: Troponin I 0.38 *H 04/01/18 0900: Urinalysis LIGHT H, Urine Color YEL, Urine Clarity HAZY H, Urine pH 6.0, Ur Specific [place] 1.015, Urine Protein TRACE H, Urine Ketones NEG, Urine Nitrite NEG, Urine Bilirubin NEG, Urine Urobilinogen 0.2, Ur Leukocyte Esterase MOD H, Ur Microscopic SEDIMENT EXAMINED, Urine RBC 15-25 H, Urine WBC 15-25 H, Ur Epithelial Cells MOD H, Urine Bacteria FEW H, Urine Mucus FEW, Urine Hemoglobin LARGE H, Urine Glucose NEG Assessment/Plan Assessment/Plan 72 year old male with known CAD, CABG, HTN, DM, RBBB admitted with acute renal failure secondary to left hydronephrosis secondary to ureteral stone. He is still uncomfortable with left flank pain. No chest pain overnight. Troponin now downtrending, started on iv heparin yesterday afternoon. Ekg yesterday afternoon revealed SR, old inferior infarct, old RBBB, improved anterolateral ST depressions (back to baseline). Echo without new wall motion abnormalities. Plan: repeat BMP, troponin today am continue metoprolol, aspirin hold ARB until renal function improved If troponin decreasing, proceed with ureteral stent-stop heparin 3-4 hours prior to procedure Once renal function improves, he will be transferred for cardiac catheterization. Patient has not decided which hospital (he considers [facility], [facility] or [place]). Risk and benefit of ureteral stent procedure discussed with the family, they agree to proceed. They accept elevated risk given his recent NSTEMI (although procedure is relatively minor-5-10 min under moderate sedation). Continue telemetry? Yes
[2018-04-03 08:00] LABS: ABSOLUTE BASOPHIL COUNT 0 /CUMM (0.0-0.2); ABSOLUTE EOSINOPHIL COUNT 0 /CUMM (0.0-0.7); ABSOLUTE GRANULOCYTE CT 5.9 /CUMM (1.4-6.5); ABSOLUTE LYMPH COUNT 1.1 /CUMM (1.2-3.4); ABSOLUTE MONOCYTE COUNT 0.8 /CUMM (0.10-0.60); BASOPHIL % 0.2 % (0.0-2.0); EOSINOPHIL % 0.4 % (0-5); GRANULOCYTE % 75.9 % (42.2-75.2); HEMATOCRIT 35.7 % (42-52); MEAN CORPUSCULAR HGB CONC 32.5 G/DL (33.0-37.0); MEAN CORPUSCULAR VOLUME 89.1 FL (80.0-94.0); MEAN PLATELET VOLUME 8.4 FL (7.4-10.4); PLATELET COUNT 158 /CUMM (130-400); RBC DISTRIBUTION WIDTH 13.4 % (11.5-14.5); RED BLOOD CELL CT 4.01 /CUMM (4.70-6.10); WHITE BLOOD CELL COUNT 7.8 /CUMM (4.8-10.8)
[2018-04-03 08:20] LABS: PTT 74 SEC (25-37)
--- NOTE | 2018-04-03 11:47 | Operative Report ---
Operative/Inv Procedure Report Surgery Date: 04/03/18 Name of Procedure: cystoscopy: left stent insertion/fluoroscopy Pre-Operative Diagnosis: left hydronephrosis with ARF Post-Operative Diagnosis: same Estimated Blood Loss: scant Surgeon/Transcribing Operator Head: MD Jim, [place] Anesthesia: moderate sedation Drains: 18 fr. lawson Complications: none Operative Indication: acute renal failure with peristent left colic. Operative/Procedure Note Note: The patient was taken to the operating room placed OR table in supine position. Timeout was performed, with the patient awake, in order to confirm anesthesia, and other pertinent perioperative information. After adequate anesthesia and antibiotics the patient was then placed lithotomy stirrups, draped and prepped in the usual surgical fashion. A 22 [place] cystoscope sheath with 30 angle lens was inserted into the urethra, subsequently into the bladder without difficulty. Upon thorough and systematic surveillance, the bladder was noted to be free of tumor, free of stone. Both ureteral orifices were in their orthotopic position with clear efflux from the right side. The left orifice was intubated with a tiger tail catheter. Retrograde pyelogram, with fluoroscopy, was gently performed in order to confirm hydronephrosis, and a 9 mm left ureter filling defect, consistent with stone, and proximal hydronephrosis. The retrograde pyelogram was also helpful in order to map the anatomy of the left ureter and kidney using fluoroscopy. The tiger tail catheter was then removed. The left orifice was then intubated with a 0.035 Glidewire, which was advanced into the left ureter, and renal pelvis, without difficulty, bypassing the left ureter stone. Over this Glidewire a 6 X 22 Bard onlay stent was rail-roaded into the left ureter without difficulty. With the proximal coil of the stent noted in the left renal pelvis, and the distal coil in the bladder, the Glidewire was removed. The stent remained in proper place, confirmed cystoscopically, and fluoroscopically. The bladder was then drained via the cystoscope, which was then removed without difficulty. An 18 fr lawson was inserted without difficulty. All sponege needle and instrument count were correct at the end of the case. The patient tolerated the procedure well, and was taken to recovery room in satisfactory condition. Discharge Disposition: PACU Additional Comments: for left ESWL, cysto-stent removal in few weeks when medically cleared: void trial tomorrow 04/04/18 CC: Maxim Fernandez MD
--- NOTE | 2018-04-03 12:34 | PN- Diabetes ---
Assessment/Plan Diabetes Assessment: 72-year-old male has had hx of diabetes type 2 who presented with abdominal pain. He was pound to have a 6 mm kidney stone complicated with mild hydronephrosis, acute renal insufficiency and positive troponin. Now he is on D51/2 NS at 75 ml/hour and RISS every 6 hours coverage. His FSGs were 111, 140 and 150. This morning, his Cr was 2.2 and his troponin was 1.62. Patient is going to have stent placement by Dr. Fernandez. Plan: continue the current IVF and insulin regimen for now; monitor FSGs and renal function; will follow. Subjective Subjective: Patient was sleeping in the morning. Objective Last 24 Hrs of Vital Signs/I&O Vital Signs Date Time Temp Pulse Resp B/P B/P Pulse O2 O2 Flow FiO2 Mean Ox Delivery Rate 04/03 0825 68 18 130/70 04/03 0702 99.0 68 18 130/70 96 Room Air 04/02 2201 98.5 81 20 140/64 96 Room Air 04/02 2009 76 122/64 04/02 1518 98.0 89 20 130/70 94 Intake & Output 04/03 1600 04/03 0800 04/03 0000 Intake Total 1497.6 170 Output Total Balance 1497.6 170 Intake, IV 1497.6 170 Findings Pertinent Lab/Shaka Results: Laboratory Tests 04/03 04/02 04/02 0622 2225 1709 Chemistry Sodium (137 - 145 mmol/L) 139 Potassium (3.5 - 5.1 mmol/L) 4.3 Chloride (98 - 107 mmol/L) 109 H Carbon Dioxide (22 - 30 mmol/L) 19 L Anion Gap (5 - 16) 11 BUN (9 - 20 mg/dL) 33 H Creatinine (0.7 - 1.2 mg/dL) 2.2 H Estimated GFR (>60 ml/min) 30 L BUN/Creatinine Ratio (7 - 25 %) 15.0 Troponin I (<0.11 ng/ml) 1.62 *H Cancelled Coagulation APTT (25 - 37 SEC) 74 H 37 Hematology CBC w Diff NO MAN DIFF REQ WBC (4.8 - 10.8 /CUMM) 7.8 RBC (4.70 - 6.10 /CUMM) 4.01 L Hgb (14.0 - 18.0 G/DL) 11.6 L Hct (42 - 52 %) 35.7 L MCV (80.0 - 94.0 FL) 89.1 MCH (27.0 - 31.0 PG) 29.0 MCHC (33.0 - 37.0 G/DL) 32.5 L RDW (11.5 - 14.5 %) 13.4 Plt Count (130 - 400 /CUMM) 158 MPV (7.4 - 10.4 FL) 8.4 Gran % (42.2 - 75.2 %) 75.9 H Lymphocytes % (20.5 - 51.1 %) 13.8 L Monocytes % (1.7 - 9.3 %) 9.7 H Eosinophils % (0 - 5 %) 0.4 Basophils % (0.0 - 2.0 %) 0.2 Absolute Granulocytes (1.4 - 6.5 /CUMM) 5.9 Absolute Lymphocytes (1.2 - 3.4 /CUMM) 1.1 L Absolute Monocytes (0.10 - 0.60 /CUMM) 0.8 H Absolute Eosinophils (0.0 - 0.7 /CUMM) 0 Absolute Basophils (0.0 - 0.2 /CUMM) 0 04/02 1354 Chemistry Troponin I (<0.11 ng/ml) 1.88 *H
[2018-04-03 14:13] VITALS: BP 118/78
--- NOTE | 2018-04-03 15:05 | Discharge Summary ---
Visit Information Visit Dates Admission Date: 04/01/18 Discharge Date: 04/05/18 Hospital Course Course Attending Physician: Radha ALAS,Leia Cordero Primary Care Physician: Walter Martinez MD Hospital Course: Patient is a 72 year old male with past medical history of diabetes, coronary artery disease status post CABG 9 years ago at [facility], hypertension , hyperlipidemia who came to the [facility] ER with complaints of abdominal pain and chest pain since 0300AM morning of admission. Patient at that time had a 10/ 10 left quadrant lower abdominal pain that began 4 days ago. Patient had noted one episode of hematuria at that time and decreased urinary stream. Patient claimed he took Aleve to help with the pain but did not improve. Patient came to ED one day prior to admission and had a CAT scan which demonstrated mild left hydrouretronephrosis with 6 mm distal left ureteral calculs. Creatinine at that time was 1.8 and patient was sent home on Ultracet with a follow up with Dr. Fernandez (Urologist) as an outpatient. Patient had little improvement and early 0300AM developed nausea and vomiting twice as well as lower abdominal/flank pain. In addition, Mr. Richards reported substernal chest pain 5/10 in intensity, non-radiating and not releived by over the counter pain medications. Patient decided to come the the [facility] ER. Denied any fever, chills, palpitations, orthopnea, paroxysmal nocturnal dyspnea, weakness at that time. Patient follows up with Dr. Martinez as PCP and Dr. Hudson as Bolt Machine Operator. EMERGENCY DEPARTMENT Vitals: 98.0, 88 pulse, 16 respiration rate, 153/84 blood pressure, 98% RA Urinalysis: Urine RBC 15-25, Urine hemoglobin Large BUN/Cr: 39/3.4 (baseline 1.1) Estimated GFR: 18: Troponin: 0.10, 0.38 CXR: No acute cardiopulmonary findings. CT: Mild left hydronephroureter secondary to a 6mm distal left ureteric calculus. Treatment in ED: Morphine 4mg x1; normal saline bolus 1L, Zofran x1, sublingual nitroglycerin x 1 ADMISSION TO TELEMETRY Patient admitted to the telemetry unit giving trending troponin and presentation of chest pain on admission. In addition, patient has a history of CAD s/p CABG, hypertension, hyperlipidemia and age of 72 which contribute to risk factors of ACS. Patient had chest pain not releived by medications. PROBLEM LIST: 1. Chest Pain 2. Left Hydroureteronephrosis with renal calculi 3. Insulin-dependent diabetes mellitus 4. CAD s/p CABG 5. Hyperlipidemia 6. Morbid Obesity CHEST PAIN Patient was evaluated and treated for chest pain. Troponins and EKGs were trended. The patient's ECG in the emergency room showed a right bundle branch block which is chronic but there were slightly more prominent ST-T wave changes noted. Patient had chest pain on admission 01/25, non radiating and not releived by Aleve. Second troponin was positive at 0.38. Initially patient was seen in ER by Dr. Cheek to trend troponins and possible picture of Type 2 ID due to demand ischemia from systemic exhertion from left ureteronephrosis with renal calculi. Echocardiogram to assess left ventricular wall regional wall motion. Patient continued on metorpolol and aspirin. Losartan was held due to elevated creatinine. Patients home supervisor hydrochloric area Dr. Hudson was also on [facility] as well as Dr. Martinez his primary care physician. Initially, the urological procedure was held off due to elevated troponins.Troponin trending up: 0.10, 0.38, 0.94, 1.60, 2.12. Eventually, troponins down trended to 1.62 from 1.88. ECHO demonstrated an EF of 55-60%. Patient started on IV heparin one day prior to procedure and discontinued 3-4 hours before the urological procedure. Patient had urological procedure on 04/03/[address] Fernandez. Cardiological stand point discussed extensively with patient and and they agreed to proceed and accept risk given patients recent NSTEMI although procedure relatively minor. Patient advised to follow up with cardiology outpatient and have catherization at [facility] within 2-3 weeks after discharge. ARBs were held for now. Plavix 75mg was started to start and instructed to stop if patient had recurrent hematuria. Nitroglycerin 0.4mg as needed for home. Follow up appointment on 04/27/18. Advised to return to ED with worsening chest pain not responding to sublingual nitroglycerin. LEFT HYDROURETERONEPHROSIS WITH RENAL CALCULI Patient had a CT scan in the ED which demonstrated left hydronephrosis and a distal 6mm renal stone. Patient presented with Acute Kidney Injury on admission with a creatinine of 3.4. Urology, Dr. Fernandez was on board for a ureteral stent placement the next day. After clearance from cardiology and a downtrend in troponins, patient was able to go under the urological procedure. Patient had small clots from the tip of the penis after the procedure with no further complications. Osborn was removed the next morning and patient voided well with minimal hematuria. Renal function significantly improved since admission and was 1.1 prior to discharge. Advised to follow up with urology after 2 weeks for stent removal. Patient also advised to follow up with his PCP. DIABETES MELLITUS Patients diabetes was continuously monitored on admission including his renal function. Losartan was held to avoid renal toxicity. Dr. Martinez his PCP and clinical documentation specialist was on board. Gentle hydration was provided as needed and insulin sliding scale was adjusted accordingly. Prior to admission, Dr. Martinez stopped Bydureon, glimepiride, Qsymia, and insulin until outpatient follow up. Advised to continue pioglitazone for diabetes and continue omperazole and simvastatin. Code Status: Full Code DVT PPx: Alps, Heparin Allergies: Coded Allergies: NO KNOWN ALLERGIES (01/04/16) Disposition Summary Disposition Principal Diagnosis: TYPE2 ID/NSTEMI Additional Diagnosis: Left Ureteronephrosis/Distal Renal Calculi Discharge Disposition: home or self care Discharge Instructions General Discharge Information Code Status: Full Code Patient's Diet: Heart Healthy Patient's Activity: As tolerated Follow-Up Instructions/Appts: Please follow up with PCP within 1 week of discharge. Please follow up with Bolt Machine Operator within 1 week of discharge. Please follow up with Urologist for stent removal within 2 weeks of discharge. Discontinue plavix if signfiicant hematuria present. Return to the ED if worsening chest pain, palpitations, shortness of breath, significant hematuria. Medications at Discharge Discharge Medications: Stop taking the following medications: Losartan Potassium (Losartan Potassium) 50 MG TABLET ORAL DAILY Qty = 90 Phentermine/Topiramate (Qsymia 11.25 MG-69 MG Capsule) 11.25 MG-69 MG CPMP.24HR ORAL DAILY Qty = 30 Glimepiride (Glimepiride) 2 MG TABLET ORAL DAILY Qty = 30 Metformin HCl (Metformin HCl ER) 500 MG [id number] ORAL DAILY Qty = 30 Exenatide Microspheres (Bydureon Bcise) 2 MG/0.85 ML AUTO.INJCT SC EVERY MONDAY Qty = 34 Continue taking these medications: Metoprolol Tartrate (Metoprolol Tartrate) 100 MG TABLET 1 Tablet ORAL TWICE DAILY Qty = 180 Comments: Last Taken:04/05/18 Time:0732 Simvastatin (Simvastatin*) 40 MG TABLET 1 Tablet ORAL Every night Qty = 90 Comments: Last Taken:04/04/18 Time:1655 GIVEN LIPITOR IN HOSPITAL Pioglitazone HCl (Pioglitazone HCl) 30 MG TABLET 1 Tablet ORAL DAILY Qty = 30 Comments: NOT GIVEN IN HOSPITAL Omeprazole (Omeprazole) 20 MG CAPSULE.DR 1 Capsule ORAL DAILY Qty = 30 Comments: Last Taken:04/05/18 Time:0732 Aspirin (Aspirin*) 81 MG TAB.CHEW 1 Tablet ORAL DAILY Comments: Last Taken:04/05/18 Time:0731 Multivit-Min/FA/Lycopen/Lutein (Centrum Silver Tablet) 0.4 MG-300 MCG-250 MCG TABLET 1 Tablet ORAL DAILY Comments: NOT GIVEN IN HOSPITAL Calcium Polycarbophil (Fiber Tabs) 625 MG TABLET 1 Tablet ORAL DAILY Comments: NOT GIVEN IN HOSPITAL Cholecalciferol (Vitamin D3) (Vitamin D) 1,000 UNIT TABLET 1 Tablet ORAL DAILY Comments: NOT GIVEN IN HOSPITAL [place]-3S/Dha/Epa/Fish Oil (Fish Oil 1,200 MG Softgel) 360-1,200MG CAPSULE 1 Capsule ORAL DAILY Comments: NOT GIVEN IN HOSPITAL Alprazolam (Alprazolam) 0.5 MG TABLET 1 Tablet ORAL 2 x Daily as needed as needed for ANXIETY Qty = 30 Comments: NOT GIVEN IN HOSPITAL Tramadol HCl/Acetaminophen (Ultracet Tablet) 37.5 MG-325 MG TABLET 1-2 Tablet ORAL EVERY SIX HOURS NEEDED Qty = 30 Comments: Last Taken:04/05/18 Time:0734 Polyethylene Glycol 3350 (Miralax) 17 GRAM/DOSE POWDER 17 Gram ORAL DAILY as needed for CONSTIPATION Qty = 255 Instructions: mix with water, juice, soda, coffee or tea Comments: Last Taken:04/04/18 Time:0835 Start taking the following new medications: Clopidogrel Bisulfate (Plavix) 75 MG TABLET 1 Tablet ORAL DAILY Qty = 30 No Refills Comments: NOT GIVEN IN HOSPITAL Nitroglycerin (Nitrostat) 0.4 MG TAB.SUBL 1 Tablet SUBLINGUAL As Directed Qty = 25 No Refills Instructions: 1st sign of attack,may repeat every 5minutes until reliefif pain persists [id number] in 15 minutes Comments: NOT GIVEN IN HOSPITAL Copies To: Juan ALAS,Walter Warren; Augustin Cheek MD; Edson Hudson MD
--- NOTE | 2018-04-03 15:30 | PN- Urology ---
Surgical Brief Attending Note Brief Attending Note: Pt overall stable and comfortable: gross hematuria post cystoscopy: recommend holding heparin x 6 hours then OK to resume: manually irrigate lawson with 50cc sterile water q 4 hrs prn gross hematurial/clot. DO NOT start 3way lawson CBI.
--- NOTE | 2018-04-03 16:23 | RADIOLOGY REPORT ---
EXAMINATION: CR ABDOMEN/INTRAOPERATIVE FLUOROSCOPY CLINICAL INDICATION: Left cystoscopy in OR with stent placement. COMPARISON: CT scan of the abdomen and pelvis dated 03/31/2018. TECHNIQUE/FINDINGS: Fluoroscopic equipment was dedicated to the operating room for the performance of an intraoperative procedure. Single spot film was acquired and is archived in PACS. Please refer to operative notes for procedural detail. FLUOROSCOPY TIME: 0.3 minutes. IMPRESSION: Administrative dictation for intraoperative fluoroscopy and image archiving in PACS. Please refer to operative notes for details.
[2018-04-03 21:49] VITALS: BP 118/74
[2018-04-04 06:29] VITALS: BP 122/74
--- NOTE | 2018-04-04 07:04 | PN- Housestaff ---
Kerrie Bailey 04/04/18 0704: Subjective Follow-up For: Elevated Troponins/NSTEMI Left Ureteral Stent Placement - post op day 1 Tele-Events Since Last Visit: Normal sinus rhythm, 78, 0.12, 0.18, BBB Subjective: Patient seen and examined at bedside this morning. Patient is overall stable and comfortable. Patient had postop hematuria with small clots in the toilet yesterday. No clots present in the Lawson. Patient was seen by his urologist Dr. Fernandez. Advised to manually irrigate Lawson with sterile water every 4 hours as needed for gross hematuria/clot formation. Patient denies chest pain, palpitations, shortness of breath at this time. Patient has not had a bowel movement in a week. Will give suppository. Review of Systems Constitutional: Denies: see HPI. Objective Last 24 Hrs of Vital Signs/I&O Vital Signs Date Time Temp Pulse Resp B/P B/P Pulse O2 O2 Flow FiO2 Mean Ox Delivery Rate 04/04 0629 98.0 79 20 122/74 96 Room Air 04/03 2149 97.8 81 18 118/74 95 Room Air 04/03 2110 85 118/74 04/03 1413 98.6 79 18 118/78 98 Room Air 04/03 0825 68 18 130/70 Intake & Output 04/04 0800 04/04 0000 04/03 1600 Intake Total 710 Output Total 750 200 Balance -750 510 Intake, IV 350 Intake, Oral 360 Output, Urine 750 200 Physical Exam General Appearance: Alert, Oriented X3, Cooperative, No Acute Distress HEENT: PERRLA, EOMI, Mucous Membr. moist/pink Neck: Supple, No JVD Cardiovascular: Regular Rate, Normal S1, Normal S2 Lungs: Clear to Auscultation, Normal Air Movement Abdomen: Pain on palpation; status post op day 1 left ureteral stent placement Neurological: Strength at 5/5 X4 Ext, Normal Tone, Sensation Intact, Reflexes 2+ Extremities: No Clubbing, No Cyanosis, No Edema Vascular: Normal Pulses, Pulses Symmetrical Other Physical Findings: Patient denies any gross hematura/clot formation this morning Current Medications: Current Medications Sig/Adarsh Start time Last Medication Dose Route Stop Time Status Admin Acetaminophen 1,000 MG .STK-MED ONE 04/03 0830 DC IV 04/03 08 Acetaminophen 1,000 MG Q6P PRN 04/01 1300 04/03 N/A 1 UNIT IV 0833 Aspirin 81 MG DAILY 04/01 1511 04/03 PO 0826 Atorvastatin Calcium 20 MG 1700 04/01 1700 AC 04/03 PO 1820 Calcium Carbonate 500 MG DAILY NEEDED PRN 04/02 1330 AC 04/02 PO 1333 Dextrose/Sodium 1,000 ML Q13H 04/01 1315 DC 04/02 Chloride IV 1940 Fentanyl Citrate 200 MCG .STK-MED ONE 04/03 1829 DC IV 04/03 1830 Heparin Sodium 5,000 UNIT Q8 04/03 2200 04/04 (Porcine) SC 0429 Heparin Sodium 25,000 UNIT Q24H 04/02 1130 DC 04/02 (Porcine) IV 1620 Sodium Chloride 500 ML Insulin Aspart 0 TIDAC 04/03 1315 04/03 SC 1800 Insulin Human Regular 0 Q6 04/03 0000 DC 04/03 SC 0619 Metoprolol Tartrate 100 MG BID 04/01 1515 04/03 PO 2110 Midazolam HCl 6 MG .STK-MED ONE 04/03 1829 DC IV 04/03 1830 Morphine Sulfate 2 MG Q4P PRN 04/01 1300 04/04 IV 0410 Nitroglycerin 0.5 GM Q6 PRN 04/01 1315 TOP Omeprazole 20 MG DAILY 04/01 1512 04/03 PO 0825 Patient Medication 1 ED ONE ONE 04/03 1715 DC Teaching ED 04/03 1716 Polyethylene Glycol 17 GM ONCE ONE 04/03 1245 DC PO 04/03 1246 Polyethylene Glycol 17 GM DAILY 04/01 1515 04/02 PO 1144 Senna/Docusate Sodium 1 TAB BID 04/01 2100 04/03 PO 2110 Tramadol HCl 50 MG Q12 04/04 0900 CAN PO Tramadol HCl 50 MG ONCE ONE 04/03 2215 DC 04/03 PO 04/03 2216 2217 Tramadol HCl 50 MG Q12 04/03 2215 AC PO Tramadol HCl 50 MG Q8 04/03 2200 DC PO Tramadol HCl 50 MG Q12H 04/03 2200 DC PO Last 24 Hrs of Lab/Shaka Results Last 24 Hrs of Labs/Mics: Laboratory Tests 04/04/18 0605: Sodium Pending, Potassium Pending, Chloride Pending, Carbon Dioxide Pending, Anion Gap Pending, BUN Pending, Creatinine Pending, BUN/Creatinine Ratio Pending , CBC w Diff Pending, WBC Pending, RBC Pending, Hgb Pending, Hct Pending, MCV Pending, MCH Pending, MCHC Pending, RDW Pending, Plt Count Pending, MPV Pending Assessment/Plan Assessment: Patient is a 72-year-old male with known coronary artery disease, CABG 9 years ago at [facility], hypertension, diabetes mellitus, right bundle branch block admitted with acute renal failure secondary to left hydronephrosis/ nephrolithiasis. Patient continued to have left-sided flank pain. Patient was found to have a 6 mm kidney stone. in addition patient has had intermittent chest pain/palpitations. Patient's troponins were elevated on admission. Troponin levels include 0.38, 0.94, 1.60, 2.12, 1.88, 1.62. Patient was held from urological procedure until his troponin down trended yesterday. Patient was started on IV heparin for 1 day. Patient was cleared by his repairer veneer sheet Dr. Hudson for left ureteral stent placement yesterday. Heparin was discontinued 3-4 hours prior to surgery. Postop patient had gross hematuria/ clot formation from the tip of his penis. No clots are present in the Lawson catheter. Patient cleared by cardiology Dr. Hudson and urology Dr. Fernandez for discharge today. Patient denies any chest pain or significant abdominal pain today. Patient has not moved bowel in about a week. Will give suppository prior to discharge. Will remove Lawson catheter. Patient follow-up with cardiology and urology upon discharge. Problem list: 1. Elevated troponin/and NSTEMIdowntrending troponins. 2. Left hydronephrosis/nephrolithiasispostop day 1 status post left ureteral stent placement. Plan: Elevated troponins/NSTEMI * Patient's troponin down trended to 1.6 from 1.88 yesterday. * Patient was cleared by Dr. Hudson for his urological procedure yesterday. * Will continue to monitor patient on telemetry given previous complaint of chest pain and elevated troponins. * Patient advised to follow-up with cardiology outpatient. As per cardiology, patient is stable to have catheterization at [facility] within 2-3 weeks. Left hydronephrosis/nephrolithiasis * Patient is postop day 1 status post left ureteral stent placement by urologist Dr. Fernandez * Continue to monitor patient's renal function * Continue to follow endocrinology's recommendations including diabetic regimen. * Patient cleared by Dr. Fernandez for discharge today and removal of Lawson. Renal function significantly improved since his procedure. Creatinine is 1.4 from 2.2. BUN is 2.2 from 33. * Patient advised to follow up with urology outpatient upon discharge CODE STATUS: Full code DVT prophylaxis: Heparin SC Diet: Regular diet Problem List: 1. Kidney stone on left side 2. Chest pain Pain Ratin Pain Location: Post op day 1 pain at site of procedure Pain Goal: Pain 4 or less Pain Plan: As per pain pathway Tomorrow's Labs & Rationales: CBC BEP DVT/Prophylaxis: pharmacological Leia Garcia 04/04/18 1221: Attending MD Review Statement Attending Statement Attending MD Statement: examined this patient, discuss w/resident/PA/CONFERENCE ORGANIZER, agreed w/resident/PA/CONFERENCE ORGANIZER, discussed with family, reviewed EMR data (avail), discussed with nursing, discussed with case mgmt Attending Assessment/Plan: Ureteral stone s/p stent placement. dc lawson today and plan dc today home . NSTEMI/Type 2 [place]- plan dc home with f/u with cardio as outpt with cardiac cath as an outpatient. TREVOR- resolving. see dc summary for more details.
--- NOTE | 2018-04-04 07:52 | PN- Diabetes ---
Assessment/Plan Diabetes Assessment: The patient feels improved. He has some occasional discomfort from the Osborn catheter. Stent was inserted yesterday morning. The patient's creatinine is down to 1.4 today with a BUN of 22. This is much improved. With regard to his diabetes he states he is eating okay. There has been no further nausea vomiting. His blood sugars yesterday by fingerstick were 137 before lunch, 193 before supper, 156 at bedtime. This morning's blood sugar is 116. The patient is on NovoLog coverage before meals. Plan: Suggest stop calcium carbonate as we usually do not like to administer calcium pills in patients who have kidney stones. Hopefully we will be able to obtain the stone analysis when he passes the stone. I would continue the same regimen for his diabetes at present. The patient's is concerned and would like to take the patient home for a few days before having the cardiac catheterization done. The patient is now asymptomatic from the cardiac point of view and he has discussed this with Dr. Hudson. Subjective Subjective: Vital Signs Date Time Temp Pulse Resp B/P B/P Pulse O2 O2 Flow FiO2 Mean Ox Delivery Rate 04/04 629 98.0 79 20 122/74 96 Room Air 04/03 2149 97.8 81 18 118/74 95 Room Air 04/030 85 118/74 04/03 1413 98.6 79 18 118/78 98 Room Air 04/03 0825 68 18 130/70 Intake & Output 04/04 0800 04/04 0000 04/03 1600 Intake Total 710 Output Total 750 200 Balance -750 510 Intake, IV 350 Intake, Oral 360 Output, Urine 750 200 Review of Systems Constitutional: Denies: chills, fever. Cardiovascular: Denies: chest pain. Respiratory: Denies: short of breath. Gastrointestinal: Denies: abdominal pain, nausea, vomiting. Genitourinary: Reports: hematuria. Objective Last 24 Hrs of Vital Signs/I&O Vital Signs Date Time Temp Pulse Resp B/P B/P Pulse O2 O2 Flow FiO2 Mean Ox Delivery Rate 04/04 0629 98.0 79 20 122/74 96 Room Air 04/039 97.8 81 18 118/74 95 Room Air 04/03 2110 85 118/74 04/03 1413 98.6 79 18 118/78 98 Room Air 04/03 0825 68 18 130/70 Intake & Output 07/18 0800 04/04 0000 04/03 1600 Intake Total 710 Output Total 750 200 Balance -750 510 Intake, IV 350 Intake, Oral 360 Output, Urine 750 200 Vital Signs Date Time Temp Pulse Resp B/P B/P Pulse O2 O2 Flow FiO2 Mean Ox Delivery Rate 04/04 0629 98.0 79 20 122/74 96 Room Air 04/03 2149 97.8 81 18 118/74 95 Room Air 04/03 2110 85 118/74 04/03 1413 98.6 79 18 118/78 98 Room Air 04/03 0825 68 18 130/70 Intake & Output 04/04 0800 04/04 0000 04/03 1600 Intake Total 710 Output Total 750 200 Balance -750 510 Intake, IV 350 Intake, Oral 360 Output, Urine 750 200 Physical Exam General Appearance: alert, awake, comfortable Head: normal appearance Neck: normal inspection Respiratory: normal breath sounds Cardiovascular: regular rate/rhythm Extremities: normal inspection Current Medications: Current Medications Sig/Adarsh Start time Last Medication Dose Route Stop Time Status Admin Acetaminophen 1,000 MG .STK-MED ONE 04/03 0830 DC IV 04/03 0831 Acetaminophen 1,000 MG Q6P PRN 04/01 1300 AC 04/03 N/A 1 UNIT IV 0833 Aspirin 81 MG DAILY 04/01 1511 AC 04/03 PO 0826 Atorvastatin Calcium 20 MG 1700 04/01 1700 AC 04/03 PO 1820 Calcium Carbonate 500 MG DAILY NEEDED PRN 04/02 1330 AC 04/02 PO 1333 Dextrose/Sodium 1,000 ML Q13H 04/01 1315 DC 04/02 Chloride IV 1940 Fentanyl Citrate 200 MCG .STK-MED ONE 04/03 1829 DC IV 04/03 1830 Heparin Sodium 5,000 UNIT Q8 04/03 2200 04/04 (Porcine) SC 0429 Heparin Sodium 25,000 UNIT Q24H 04/02 1130 DC 04/02 (Porcine) IV 1620 Sodium Chloride 500 ML Insulin Aspart 0 TIDAC 04/03 1315 AC 04/03 SC 1800 Insulin Human Regular 0 Q6 04/03 0000 DC 04/03 SC 0619 Metoprolol Tartrate 100 MG BID 04/01 1515 04/03 PO 2110 Midazolam HCl 6 MG .STK-MED ONE 04/03 182 DC IV 04/03 1830 Morphine Sulfate 2 MG Q4P PRN 04/01 1300 AC 04/04 IV 0410 Nitroglycerin 0.5 GM Q6 PRN 04/01 1315 AC TOP Omeprazole 20 MG DAILY 04/01 1512 AC 04/03 PO 0825 Patient Medication 1 ED ONE ONE 04/03 1715 DC Teaching ED 04/03 1716 Polyethylene Glycol 17 GM ONCE ONE 04/03 1245 DC PO 04/03 1246 Polyethylene Glycol 17 GM DAILY 04/01 1515 AC 04/02 PO 1144 Senna/Docusate Sodium 1 TAB BID 04/01 2100 AC 04/03 PO 2110 Tramadol HCl 50 MG Q12 04/04 0900 CAN PO Tramadol HCl 50 MG ONCE ONE 04/03 2215 DC 04/03 PO 04/03 2216 2217 Tramadol HCl 50 MG Q12 04/03 2215 AC PO Tramadol HCl 50 MG Q8 04/03 2200 DC PO Tramadol HCl 50 MG Q12H 04/03 2200 DC PO Findings Pertinent Lab/Shaka Results: Laboratory Tests 04/04 0605 Chemistry Sodium (137 - 145 mmol/L) 141 Potassium (3.5 - 5.1 mmol/L) 4.2 Chloride (98 - 107 mmol/L) 110 H Carbon Dioxide (22 - 30 mmol/L) 21 L Anion Gap (5 - 16) 10 BUN (9 - 20 mg/dL) 22 H Creatinine (0.7 - 1.2 mg/dL) 1.4 H Estimated GFR (>60 ml/min) 50 L BUN/Creatinine Ratio (7 - 25 %) 15.7 Hematology CBC w Diff Pending WBC Pending RBC Pending Hgb Pending Hct Pending MCV Pending MCH Pending MCHC Pending RDW Pending Plt Count Pending MPV Pending
--- NOTE | 2018-04-04 07:54 | PN- Cardiology ---
Subjective Subjective: Left flank pain improved after ureteral stent. Patient reports back pain and Osborn discomfort. No recurrent chest pain. Objective Vital Signs and I&Os Vital Signs Date Time Temp Pulse Resp B/P B/P Pulse O2 O2 Flow FiO2 Mean Ox Delivery Rate 04/04 0629 98.0 79 20 122/74 96 Room Air 04/03 2149 97.8 81 18 118/74 95 Room Air 04/03 2110 85 118/74 04/03 1413 98.6 79 18 118/78 98 Room Air 04/03 0825 68 18 130/70 Intake & Output 04/04 0800 04/04 0000 04/03 1600 04/03 0800 04/03 0000 04/02 1600 Intake Total 710 1497.6 170 860 Output Total 750 200 Balance -005 656 1991.6 170 860 Intake, IV 350 1497.6 170 Intake, Oral 360 860 Output, Urine 750 200 Physical Exam: HEENT-PERRLA Neck-JVP normal, no bruits Lungs-clear bilaterally Heart-S1S2, regular, no murmur Abdomen-soft, not tender, BS+, no organomegaly, no masses Extr-no edema, 2+ pulses Neuro-non focal Current Medications: Current Medications Sig/Adarsh Start time Last Medication Dose Route Stop Time Status Admin Acetaminophen 1,000 MG .STK-MED ONE 04/03 0830 DC IV 04/03 0831 Acetaminophen 1,000 MG Q6P PRN 04/01 1300 AC 04/03 N/A 1 UNIT IV 0833 Aspirin 81 MG DAILY 04/01 1511 AC 04/03 PO 0826 Atorvastatin Calcium 20 MG 1700 04/01 1700 AC 04/03 PO 1820 Calcium Carbonate 500 MG DAILY NEEDED PRN 04/02 1330 AC 04/02 PO 1333 Dextrose/Sodium 1,000 ML Q13H 04/01 1315 GA 04/02 Chloride IV 1940 Fentanyl Citrate 200 MCG .STK-MED ONE 04/03 1829 DC IV 04/03 1830 Heparin Sodium 5,000 UNIT Q8 04/03 2200 AC 04/04 (Porcine) SC 0429 Heparin Sodium 25,000 UNIT Q24H 04/02 1130 DC 04/02 (Porcine) IV 1620 Sodium Chloride 500 ML Insulin Aspart 0 TIDAC 04/03 1315 04/03 SC 1800 Insulin Human Regular 0 Q6 04/03 0000 DC 04/03 SC 0619 Metoprolol Tartrate 100 MG BID 04/01 1515 AC 04/03 PO 2110 Midazolam HCl 6 MG .STK-MED ONE 04/03 1829 DC IV 04/03 1830 Morphine Sulfate 2 MG Q4P PRN 04/01 1300 AC 04/04 IV 0410 Nitroglycerin 0.5 GM Q6 PRN 04/01 1315 AC TOP Omeprazole 20 MG DAILY 04/01 1512 AC 04/03 PO 0825 Patient Medication 1 ED ONE ONE 04/03 1715 DC Teaching ED 04/03 1716 Polyethylene Glycol 17 GM ONCE ONE 04/03 1245 DC PO 04/03 1246 Polyethylene Glycol 17 GM DAILY 04/01 1515 AC 04/02 PO 1144 Senna/Docusate Sodium 1 TAB BID 04/01 2100 AC 04/03 PO 2110 Tramadol HCl 50 MG Q12 04/04 0900 CAN PO Tramadol HCl 50 MG ONCE ONE 04/03 2215 DC 04/03 PO 04/03 2216 2217 Tramadol HCl 50 MG Q12 04/03 2215 AC PO Tramadol HCl 50 MG Q8 04/03 2200 DC PO Tramadol HCl 50 MG Q12H 04/03 2200 DC PO Results Last 48 Hrs of Labs/Mics: Laboratory Tests 04/04/18 0605: Sodium Pending, Potassium Pending, Chloride Pending, Carbon Dioxide Pending, Anion Gap Pending, BUN Pending, Creatinine Pending, BUN/Creatinine Ratio Pending , CBC w Diff Pending, WBC Pending, RBC Pending, Hgb Pending, Hct Pending, MCV Pending, MCH Pending, MCHC Pending, RDW Pending, Plt Count Pending, MPV Pending 04/03/18 0622: Anion Gap 11, Estimated GFR 30 L, BUN/Creatinine Ratio 15.0, Troponin I 1.62 *H , APTT 74 H, CBC w Diff NO MAN DIFF REQ, RBC 4.01 L, MCV 89.1, MCH 29.0, MCHC 32.5 L, RDW 13.4, MPV 8.4, Gran % 75.9 H, Lymphocytes % 13.8 L, Monocytes % 9.7 H, Eosinophils % 0.4, Basophils % 0.2, Absolute Granulocytes 5.9, Absolute Lymphocytes 1.1 L, Absolute Monocytes 0.8 H, Absolute Eosinophils 0, Absolute Basophils 0 07/16/18 2225: APTT 37 04/02/18 1709: Troponin I Cancelled 04/02/18 1354: Troponin I 1.88 *H Assessment/Plan Assessment/Plan 72 year old male with known CAD, CABG, HTN, DM, RBBB admitted with acute renal failure secondary to left hydronephrosis secondary to ureteral stone and NSTEMI. He is s/p left ureteral stone and left Osborn catheter placement. Still some hematuria post procedure. Off heparin. No recurrent chest pain Plan: BMP today pending continue metoprolol, aspirin hold ARB for now-renal function improving, BP normal on metoprolol He still has some hematuria. Patient and asked if catheterization can be postponed as outpatient. He has no recurrent chest pain, ekg was improved. I think it is reasonable to postpone catheterization for 2-3 weeks as long as he has no recurrent angina. Ureteral stent will be removed in 2 weeks and if no recurrent hematuria, will schedule cath after that. Continue telemetry? Yes
[2018-04-04 07:56] LABS: ABSOLUTE BASOPHIL COUNT 0 /CUMM (0.0-0.2); ABSOLUTE EOSINOPHIL COUNT 0.1 /CUMM (0.0-0.7); ABSOLUTE GRANULOCYTE CT 3.9 /CUMM (1.4-6.5); ABSOLUTE LYMPH COUNT 1.1 /CUMM (1.2-3.4); ABSOLUTE MONOCYTE COUNT 0.5 /CUMM (0.10-0.60); BASOPHIL % 0.3 % (0.0-2.0); EOSINOPHIL % 1.4 % (0-5); GRANULOCYTE % 69.3 % (42.2-75.2); HEMATOCRIT 35.3 % (42-52); MEAN CORPUSCULAR HGB 29.3 PG (27.0-31.0); MEAN CORPUSCULAR HGB CONC 33.5 G/DL (33.0-37.0); MEAN CORPUSCULAR VOLUME 87.6 FL (80.0-94.0); MEAN PLATELET VOLUME 8.5 FL (7.4-10.4); PLATELET COUNT 172 /CUMM (130-400); RBC DISTRIBUTION WIDTH 13.2 % (11.5-14.5); RED BLOOD CELL CT 4.03 /CUMM (4.70-6.10); WHITE BLOOD CELL COUNT 5.6 /CUMM (4.8-10.8)
--- NOTE | 2018-04-04 12:42 | PN- Urology ---
Surgical Brief Attending Note Brief Attending Note: renal function back to normal: vss afebrile: OK to dc home without lawson: pt to call for left ESWL and stent removal in near future
[2018-04-04 14:38] VITALS: BP 128/60
[2018-04-04 23:03] VITALS: BP 112/60
[2018-04-05 06:53] VITALS: BP 108/70
--- NOTE | 2018-04-05 06:58 | PN- Housestaff ---
Kerrie Bailey 04/05/18 0658: Subjective Follow-up For: Elevated troponin/NTEMIstable Status post day 2 left ureteral stent placementstable Tele-Events Since Last Visit: Normal sinus rhythm, 76-88, 0.14, 0.20, BBB Subjective: Patient is status post left ureteral stent placement day 2. Patient seen and examined at bedside this morning. Patient's at bedside. Patient is eager to go home today. Claims that he finally went to the bathroom yesterday after suppository. Denies any chest pain, palpitations, shortness of breath this morning. Patient has been seen by his primary care, senior asset manager and cleared for discharge morning. Osborn catheter has been removed. Patient has been voiding with minimal hematuria. Discharge instructions have been explained. Review of Systems Constitutional: Denies: see HPI. Objective Last 24 Hrs of Vital Signs/I&O Vital Signs Date Time Temp Pulse Resp B/P B/P Pulse O2 O2 Flow FiO2 Mean Ox Delivery Rate 04/05 0732 78 108/70 04/05 0653 97.8 78 18 108/70 96 Room Air 04/04 2303 98.2 78 18 112/60 96 Room Air 04/04 2125 82 128/60 04/04 1438 97.2 82 18 128/60 96 Intake & Output 04/05 1600 04/05 0800 04/05 0000 Intake Total 300 Output Total 200 50 Balance -200 250 Intake, Oral 300 Output, Urine 200 50 Patient 260 lb Weight Weight Bed scale Measurement Method Physical Exam General Appearance: Alert, Oriented X3, Cooperative, No Acute Distress HEENT: Atraumatic, PERRLA, EOMI, Mucous Membr. moist/pink Cardiovascular: Regular Rate, Normal S1, Normal S2 Lungs: Clear to Auscultation, Normal Air Movement Abdomen: Normal Bowel Sounds, Soft, No Tenderness Neurological: Normal Speech, Strength at 5/5 X4 Ext, Normal Tone, Sensation Intact, Cranial Nerves 3-12 NL Extremities: No Clubbing, No Cyanosis, No Edema Vascular: Normal Pulses, Pulses Symmetrical Current Medications: Current Medications Sig/Adarsh Start time Last Medication Dose Route Stop Time Status Admin Acetaminophen 1,000 MG Q6P PRN 04/01 1300 DCD 04/03 N/A 1 UNIT IV 0833 Aspirin 81 MG DAILY 04/01 1511 DCD 04/05 PO 0731 Atorvastatin Calcium 20 MG 1700 04/01 1700 DCD 04/04 PO 1655 Diclofenac Sodium 1 JONATHAN ONCE ONE 04/05 0730 DC 04/05 TOP 04/05 0731 0815 Insulin Aspart 0 TIDAC 04/03 1315 DCD 04/04 SC 1659 Metoprolol Tartrate 100 MG BID 04/01 1515 DCD 04/05 PO 0732 Morphine Sulfate 2 MG Q4P PRN 04/01 1300 DCD 04/04 IV 0410 Nitroglycerin 0.5 GM Q6 PRN 04/01 1315 DCD TOP Omeprazole 20 MG DAILY 04/01 1512 DCD 04/05 PO 0732 Polyethylene Glycol 17 GM DAILY 04/01 1515 DCD 04/04 PO 0835 Senna/Docusate Sodium 1 TAB BID 04/01 2100 DCD 04/04 PO 2125 Tramadol HCl 50 MG Q12 04/03 2215 DCD 04/05 PO 0734 Last 24 Hrs of Lab/Shaka Results Last 24 Hrs of Labs/Mics: Laboratory Tests 04/05/18 0810: Anion Gap 11, Estimated GFR > 60, BUN/Creatinine Ratio 18.2 Assessment/Plan Assessment: Patient is a 72-year-old male with known coronary artery disease, CABG 9 years ago at [facility], hypertension, diabetes mellitus, right bundle branch block admitted with acute renal failure secondary to left hydronephrosis/ nephrolithiasis. Patient continued to have left-sided flank pain. Patient was found to have a 6 mm kidney stone. in addition patient has had intermittent chest pain/palpitations. Patient's troponins were elevated on admission. Troponin levels include 0.38, 0.94, 1.60, 2.12, 1.88, 1.62. Patient was held from urological procedure until his troponin down trended yesterday. Patient was started on IV heparin for 1 day. Patient was cleared by his senior asset manager Dr. Hudson for left ureteral stent placement yesterday. Heparin was discontinued 3-4 hours prior to surgery 04/04/18. Postop patient had gross hematuria/clot formation from the tip of his penis. Osborn catheter has been removed on 04/04/18 prior to discharge. Patient voiding with minimal hematuria. Patient did not want to leave yesterday and felt more comfortable to leave today. Patient cleared for discharge today. Patient denies any chest pain or significant abdominal pain today. Patient has finally moved a bowel movement after suppository given yesterday. Osborn catheter has been removed and patient voiding well with minimal hematuria. Advised to stop plavix started by Dr. Hudson of cardiology if incresaed hematuria. Problem list: 1. Elevated troponin/and NSTEMIdowntrending troponins. 2. Left hydronephrosis/nephrolithiasispostop day 1 status post left ureteral stent placement. Plan: Elevated troponins/NSTEMI * Patient was cleared by Dr. Hudson for discharge today * Continue metoprolol and aspirin. * Hold ARB for nowfollow-up as outpatient * Add clopidogrel 75 mg p.o.-will start tomorrow. was instructed to stop if patient develops recurrent hematuria * 2 glycerin 0.4 mg as needed for home * Follow-up appointment on We will schedule catheterization after next outpatient visit * Return to the ER if recurrent chest pain not responding to sublingual nitroglycerin Left hydronephrosis/nephrolithiasis * Patient is postop day 2 status post left ureteral stent placement by urologist Dr. Fernandez * Patient is voiding well with minimal hematuria. * Repeated BMP today: Renal function significantly improved with creatinine at 1.1 from 1.4. * Advised to follow-up with Dr. Fernandez after 2 weeks for stent removal. * Advised to follow-up with PCP. Diabetes Mellitus * Patient advised by primary Dr. Martinez to stopstop Bydureon, stop glimepiride, stop Qsymia, and stay off losartan for now. Can discontinue insulin as well. * Continue pioglitazone for diabetes * Continue omeprazole and simvastatin CODE STATUS: Full code DVT prophylaxis: Heparin SC Diet: Regular diet Problem List: 1. Chest pain 2. Renal colic on left side Pain Ratin Pain Location: No pain today Pain Goal: Remain pain free Pain Plan: As per pain bathroom Tomorrow's Labs & Rationales: For discharge today Discharge Plan Discharge Disposition: home Leia Garcia 04/05/18 1429: Attending MD Review Statement Attending Statement Attending MD Statement: examined this patient, discuss w/resident/PA/EDUCATIONAL MANAGER, agreed w/resident/PA/EDUCATIONAL MANAGER, discussed with family, reviewed EMR data (avail), discussed with nursing, discussed with case mgmt Attending Assessment/Plan: pt being dced home today and will f/u with urology and cardiology as an outpatinet. pt will be setup for outpatient cardiac cath per his senior asset manager. dw/ pt and pts the care plan.
[2018-04-05 07:32] VITALS: BP 108/70
--- NOTE | 2018-04-05 07:41 | PN- Cardiology ---
Subjective Subjective: One episode of nausea and vomiting yesterday, he feels good today, no chest pain. Objective Vital Signs and I&Os Vital Signs Date Time Temp Pulse Resp B/P B/P Pulse O2 O2 Flow FiO2 Mean Ox Delivery Rate 04/05 0653 97.8 78 18 108/70 96 Room Air 04/04 2303 98.2 78 18 112/60 96 Room Air 04/04 2125 82 128/60 04/04 1438 97.2 82 18 128/60 96 04/04 0836 79 122/74 Intake & Output 04/05 0800 04/05 0000 04/04 1600 04/04 0800 04/04 0000 04/03 1600 Intake Total 300 550 710 Output Total 200 50 700 750 200 Balance -200 250 -150 -750 510 Intake, IV 350 Intake, Oral 300 550 360 Number 1 Bowel Movements Output, Urine 200 50 700 750 200 Patient 260 lb Weight Weight Bed scale Measurement Method Physical Exam: HEENT-PERRLA Neck-JVP normal,no bruits Lungs-clear bilaterally Heart-S1S2, regular Abdomen-soft, not tender, BS+, no organomegaly Extr-no edema, 2+ pulses,no cyanosis Neuro-non focal Current Medications: Current Medications Sig/Adarsh Start time Last Medication Dose Route Stop Time Status Admin Acetaminophen 1,000 MG Q6P PRN 04/01 1300 AC 04/03 N/A 1 UNIT IV 0833 Aspirin 81 MG DAILY 04/01 1511 AC 04/04 PO 0836 Atorvastatin Calcium 20 MG 1700 04/01 1700 AC 04/04 PO 1655 Bisacodyl 10 MG ONCE ONE 04/04 1000 DC VT 04/04 1001 Calcium Carbonate 500 MG DAILY NEEDED PRN 04/02 1330 DC 04/02 PO 1333 Diclofenac Sodium 1 JONATHAN ONCE ONE 04/05 0730 UNVr TOP 04/05 0731 Heparin Sodium 5,000 UNIT Q8 04/03 2200 DC 04/04 (Porcine) SC 0429 Insulin Aspart 0 TIDAC 04/03 1315 AC 04/04 SC 1659 Metoprolol Tartrate 100 MG BID 04/01 1515 AC 04/04 PO 2125 Morphine Sulfate 2 MG Q4P PRN 04/01 1300 AC 04/04 IV 0410 Nitroglycerin 0.5 GM Q6 PRN 04/01 1315 AC TOP Omeprazole 20 MG DAILY 04/01 1512 AC 04/04 PO 0836 Polyethylene Glycol 17 GM DAILY 04/01 1515 AC 04/04 PO 0835 Senna/Docusate Sodium 1 TAB BID 04/01 2100 AC 04/04 PO 2124 Tramadol HCl 50 MG Q12 04/03 2215 AC 04/04 PO 2125 Results Last 48 Hrs of Labs/Mics: Laboratory Tests 04/04/18 0605: Anion Gap 10, Estimated GFR 50 L, BUN/Creatinine Ratio 15.7, CBC w Diff NO MAN DIFF REQ, RBC 4.03 L, MCV 87.6, MCH 29.3, MCHC 33.5, RDW 13.2, MPV 8.5, Gran % 69.3, Lymphocytes % 20.3 L, Monocytes % 8.7, Eosinophils % 1.4, Basophils % 0.3 , Absolute Granulocytes 3.9, Absolute Lymphocytes 1.1 L, Absolute Monocytes 0.5 , Absolute Eosinophils 0.1, Absolute Basophils 0 Assessment/Plan Assessment/Plan 72 year old male with known CAD, CABG, HTN, DM, RBBB admitted with acute renal failure secondary to left hydronephrosis secondary to ureteral stone and NSTEMI. He is s/p left ureteral stone and left Osborn catheter placement. Osborn removed, hematuria improved. Off heparin. No recurrent chest pain Renal function improving Plan: OK to discharge from cardiac standpoint continue metoprolol, aspirin hold ARB for now-will restart as outpatient Add clopidogrel 75 mg poqd -start tomorrow. instructed to stop it if he develops recurrent hematuria. Nitroglycerin 0.4 mg prn for home f/u with on 04/27/18 will schedule cathterization after next OV patient instructed to come to ER if recurrent chest pain not responding to s.l. NTG. Continue telemetry? No
--- NOTE | 2018-04-05 08:00 | PN- Diabetes ---
Assessment/Plan Diabetes Assessment: The patient feels okay. He is going to be discharged today. He has no further chest pain or abdominal pain the Osborn catheter is out and he is passing his urine okay. Plan: When the patient goes home we will keep him off some of his usual medications. He is going to stop by Bydureon, stop glimepiride, stop Qsymia, and he will stay off losartan for now. We can also discontinue the insulin. He will be on just pioglitazone for his diabetes. He can continue taking omeprazole and simvastatin. He will be on aspirin and the other cardiac medications as specified by Dr. Babcock I would repeat his basic metabolic profile today to make sure his creatinine is continuing to improve today. He can follow-up in the office next week. Subjective Subjective: Feels improved Review of Systems Constitutional: Denies: chills, fever. Cardiovascular: Denies: chest pain. Respiratory: Denies: cough, short of breath. Gastrointestinal: Denies: abdominal pain. Skin: Reports: no symptoms. Objective Last 24 Hrs of Vital Signs/I&O Vital Signs Date Time Temp Pulse Resp B/P B/P Pulse O2 O2 Flow FiO2 Mean Ox Delivery Rate 04/05 0732 78 108/70 04/05 0653 97.8 78 18 108/70 96 Room Air 04/04 2303 98.2 78 18 112/60 96 Room Air 04/045 82 128/60 18 1438 97.2 82 18 128/60 96 04/04 0836 79 122/74 Intake & Output 04/05 0800 04/05 0000 04/04 1600 Intake Total 300 550 Output Total 200 50 700 Balance -200 250 -150 Intake, Oral 300 550 Number 1 Bowel Movements Output, Urine 200 50 700 Patient 260 lb Weight Weight Bed scale Measurement Method Vital Signs Date Time Temp Pulse Resp B/P B/P Pulse O2 O2 Flow FiO2 Mean Ox Delivery Rate 04/05 0732 78 108/70 07 0653 97.8 78 18 108/70 96 Room Air 04/04 2303 98.2 78 18 112/60 96 Room Air 04/045 82 128/60 07/18 1438 97.2 82 18 128/60 96 04/04 0836 79 122/74 Intake & Output 04/05 0800 04/05 0000 04/04 1600 Intake Total 300 550 Output Total 200 50 700 Balance -200 250 -150 Intake, Oral 300 550 Number 1 Bowel Movements Output, Urine 200 50 700 Patient 260 lb Weight Weight Bed scale Measurement Method Physical Exam General Appearance: alert, awake, comfortable Head: normal appearance Neck: normal inspection Respiratory: normal breath sounds Cardiovascular: regular rate/rhythm Abdomen: normal bowel sounds Extremities: normal inspection Current Medications: Current Medications Sig/Adarsh Start time Last Medication Dose Route Stop Time Status Admin Acetaminophen 1,000 MG Q6P PRN 04/01 1300 AC 04/03 N/A 1 UNIT IV 0833 Aspirin 81 MG DAILY 04/01 1511 AC 04/05 PO 0731 Atorvastatin Calcium 20 MG 1700 04/01 1700 AC 04/04 PO 1655 Bisacodyl 10 MG ONCE ONE 04/04 1000 DC RI 04/04 1001 Calcium Carbonate 500 MG DAILY NEEDED PRN 04/02 1330 MO 04/02 PO 1333 Diclofenac Sodium 1 JONATHAN ONCE ONE 04/05 0730 DC TOP 04/05 0731 Heparin Sodium 5,000 UNIT Q8 04/03 2200 DC 04/04 (Porcine) SC 0429 Insulin Aspart 0 TIDAC 04/03 1315 04/04 SC 1659 Metoprolol Tartrate 100 MG BID 04/01 1515 AC 04/05 PO 0732 Morphine Sulfate 2 MG Q4P PRN 04/01 1300 AC 04/04 IV 0410 Nitroglycerin 0.5 GM Q6 PRN 04/01 1315 TOP Omeprazole 20 MG DAILY 04/01 1512 04/05 PO 0732 Polyethylene Glycol 17 GM DAILY 04/01 1515 AC 04/04 PO 0835 Senna/Docusate Sodium 1 TAB BID 04/01 2100 AC 04/04 PO 2125 Tramadol HCl 50 MG Q12 04/03 2215 AC 04/05 PO 0734
[2018-04-05] MEDS ORDERED: PLAVIX75 M1 PO (08:36)
[2018-04-05] MEDS ORDERED: NITROSTAT0.4 M1 SL (08:36)
== END 2018-04-05 10:57 | DRG 693 ==
LOC: ERH 03:01 → 1NO 11:13 → ERHI 11:13 → ENRESERV 13:02 → ENTRNSPT 14:08 → CMPTRNSPT 14:46 → 1NO 15:02 → ENTRNSPT 04-03 12:12 → EDTRNSPTSTS 04-03 12:14 → EDTRNSPT 04-03 12:14 → CMPTRNSPT 04-03 12:34 → 1NO 04-04 11:40 → ENPENDDIS 04-04 13:33 → ENTRNSPT 04-05 10:47 → EDTRNSPT 04-05 10:55 → EDTRNSPTSTS 04-05 10:55 → 1NO 04-05 10:57 → CMPTRNSPT 04-05 11:08
PROVIDERS: Emergency Medicine; Internal Medicine; Physical Medicine & Rehabilitation Pain Medicine; Student in an Organized Health Care Education/Training Program
PROC: 0T778DZ Dilation of Left Ureter with Intraluminal Device, Via Natural or Artificial Opening Endoscopic (ICD-10-PCS; principal; 2018-04-03)
DX: N13.2 Hydronephrosis with renal and ureteral calculous obstruction (principal); I21.A1 Myocardial infarction type 2; Z68.41 Body mass index [BMI] 40.0-44.9, adult; E87.2 Acidosis; N17.9 Acute kidney failure, unspecified; E66.01 Morbid (severe) obesity due to excess calories; E86.0 Dehydration; R31.0 Gross hematuria; I45.10 Unspecified right bundle-branch block; E11.9 Type 2 diabetes mellitus without complications; I10 Essential (primary) hypertension; E78.5 Hyperlipidemia, unspecified; K59.00 Constipation, unspecified; I25.10 Atherosclerotic heart disease of native coronary artery without angina pectoris; Z95.1 Presence of aortocoronary bypass graft; Z90.49 Acquired absence of other specified parts of digestive tract; Z79.84 Long term (current) use of oral hypoglycemic drugs
CPT/HCPCS: 1NP; 36415; 36592; 71045; 74176; 76000; 81001; 82436; 87086; 93005; 93010; 93306; 96361; 96374; 96375; C2617; J0131; J1100; J1644; J1815; J1885; J2001; J2250; J2405; J3010; J3490; J7040; J7042

== ENCOUNTER → 2018-04-24 | Day surgery (SDC) | payer OTHER, MEDICARE ==
[~2018-04-24] MED LIST changes: +CIPRO500 M1 PO; +NITROSTAT0.4 M1 SL; +PLAVIX75 M1 PO
--- NOTE | 2018-04-24 09:53 | Operative Report ---
Operative/Inv Procedure Report Surgery Date: 04/24/18 Name of Procedure: cysto: left stent removal, left retrograde pyelogram: left flexible ureteroscopy with basket extraction of stone: fluoroscopys Pre-Operative Diagnosis: left ureter stone with stent Post-Operative Diagnosis: same Estimated Blood Loss: scant Surgeon/Brusher Hand: Maxim Fernandez MD Anesthesia: moderate sedation Specimens: left stent, left stone. Complications: none Operative/Procedure Note Note: The patient was taken to the operating room and placed on the OR table in supine position. Timeout was performed, with the patient awake, in order to confirm correct patient, procedure, laterality, and other pertinent adelina-operative information. After adequate anesthesia and antibiotics, the patient was then placed in lithotomy stirrups, draped and prepped in the usual surgical fashion. A 22 [place] cystoscope sheath with 30 angle lens was inserted into the bladder without difficulty. Upon entering the bladder, the bladder was noted to be free of tumor free of stone. Both orifices were in their orthotopic position. The left ureter orifice had a double-J stent which was grasped by an alligator forceps and extracted intact along with the cystoscope. The cystoscope was then reinserted into the bladder. The left ureter orifice was intubated with a tiger-tail catheter, and a retrograde pyelogram, with fluoroscopy, was performed, revealing a signficant filling defect consistent with distal stone. The tiger-tail catheter was removed. This was followed by insertion of a 0.035 Glidewire, which was advanced into the left renal pelvis without difficulty. Placement of the wire was confirmed with fluoroscopy. Leaving the Glidewire in place. flexible ureteroscope was rail roaded over the gluidewire, which followed the wire into the bladder, up the ureter, and into the left renal pelvis, with fluoroscopy visualization. A retrograde pyelogram was again performed via the ureteroscope revealing no filling defect, and normal appearing left renal anatomy. Pyeloscopy/calyxoscopy of the upper, middle, and lower poles reveal no evidence of tumor. The entire length of the ureter was also visualized carefully on the way out. At the distal ureter, a 6mm stone was seen. Using the zero-tip basket through the ureteroscope, the stone was then grasped. The ureteroscope and the entire stone was extracted without difficulty. The bladder was then drained via an 18 fr lawson, after the ureteroscope was removed. The patient tolerated the procedure well, and was then taken to the recovery room in satisfactory condition. All sponge needle and instrument count were correct at the end of the case. The patient tolerated the procedure well. The patient is to have a voiding trial in recovery room. After recovery, the patient will be discharged with pain medication and antibiotics. The patient is to follow up in 2-4 weeks. Findings: 6mm left ureter stone. Discharge Disposition: Same Day Admissions CC: Maxim Fernandez MD
== END ==
LOC: STS 04-19 07:00
DX: N20.1 Calculus of ureter (principal); I25.10 Atherosclerotic heart disease of native coronary artery without angina pectoris; I10 Essential (primary) hypertension; E11.9 Type 2 diabetes mellitus without complications; I45.10 Unspecified right bundle-branch block
CPT/HCPCS: 82355; J0131; J2250